=== PATIENT | male | born 1985 | race Caucasian/White ===

== ENCOUNTER 2016-08-08 12:51 | Emergency (ER) | payer OTHER ==
--- NOTE | 2016-08-08 13:58 | ED NURSING NOTES ---
Clinical Report - Nurses [facility] [address] [place] [address] 08/08/2016 12:51 Patient: MICHAELA SHARMA TRIAGE Triage time 12:59 Aug 08 2016. Acuity: LEVEL 4. Chief Complaint: MOUTH SORE and LEFT LOWER TOOTHACHE. ANASTASIA COMA SCORE: Anastasia Coma Scale: 15- eyes open spontaneously (4); best verbal response- oriented x 4 (5); best motor response- obeys commands (6). --13:03 Joaquin Altman R.N. 12:59 08/08/16. BP: 130/86. HR: 99. RR: 18. O2 saturation: 99%. Temp: 97.8 F. Pain level now 9/10. --13:03 Joaquin Altman R.N. Weight: 90.7 kg stated. Height/Length: 71 inches Per Patient. BMI: 27.9. --13:00 Joaquin Altman R.N. Medications None. --13:00 Joaquin Altman R.N. Allergies No Known Drug Allergy. --13:01 Joaquin Altman R.N. History Arrived by private vehicle. Historian: patient. Accompanied by family. Primary physician (Tonny). Onset. (three days ago). ( Patient states has an appointment the 23 of august for dentist but the pain is so bad he needs to be seen today for relief.). He has a dental appointment scheduled. He has had ear pain. No fever, hoarseness, mouth sores, sinus pain or enlarged lymph nodes. He has had a toothache. No swollen jaw. 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 PAST MEDICAL HX: Dental caries. No history of strep throat, abscess or mononucleosis. Immunizations: up-to-date. SOCIAL HX: Current every day light tobacco smoker (cigarette)- less than 1/2 a pack per day. No alcohol use or drug use. No infectious disease exposure. SELF HARM ASSESSMENT: A self harm assessment was performed. The patient answered "no" to the question "Have you recently felt down, depressed, or hopeless?" and "Do you have thoughts of harming or killing yourself?". FALL RISK ASSESSMENT: Fall risk assessment completed. No fall risk identified. NUTRITIONAL RISK ASSESSMENT: The nutritional risk assessment revealed no deficiencies. FUNCTIONAL ASSESSMENT: Functional assessment: no impairments noted. LEARNING NEEDS ASSESSMENT: The learning needs assessment revealed no barriers. ABUSE ASSESSMENT: Abuse assessment: (yes) The patient was asked "Do you feel safe in your home?". SKIN INTEGRITY ASSESSMENT: Skin integrity risk assessment completed. No skin integrity risk identified. --13:03 Jaoquin Altman R.N. PROBLEMS: Constipation. UTI - Urinary Tract Infection. Abdominal Pain. --13: Joaquin Altman R.N. ADDITIONAL SURGERIES: no known surgeries. Interventions ID band on patient. --13:03 Joaquin Altman R.N. PHYSICAL ASSESSMENT Ambulatory to room. GENERAL / NEURO / PSYCH: Alert. Oriented X 4. Appears in no acute distress. HEENT: Pupils equal, round and reactive to light. Pharynx within normal limits. Voice within normal limits. Dental decay. Mucous membranes are pink. RESPIRATORY: Respirations not labored. CVS: Capillary refill less than 2 seconds. SKIN: Skin is warm and dry. Normal skin turgor. --13:04 Joaquin Altman R.N. NURSING PROGRESS NOTES Head of bed elevated (45). Reassurance given. Call light placed in reach. Side rails up x 1. Bed placed in lowest position. Brakes of bed on. --13:04 Joaquin Altman R.N. 13:33 08/08/2016 Toradol (Ketorolac Tromethamine) IM 60 mg given. Given in the right gluteus melissa and left gluteus melissa (split dose). Allergies verified and confirmed 5 rights. --13:33 Joaquin Altman R.N. DISPOSITION / DISCHARGE Departure time: 14:05 Aug 08 2016. Condition at departure: improved. No learning barriers present. Discharge instructions provided and reviewed with the patient. Reviewed warnings. Reviewed medication(s). Treatments reviewed. Reviewed referrals. Patient verbalized understanding. Written instructions provided in [place]. The patient was discharged home and accompanied by family. He left the Emergency Department ambulatory and via private vehicle. Patient driving. --14:25 Joaquin Altman R.N. 14:23 08/08/16. BP: 141/83. HR: 101. RR: 18. O2 saturation: 96%. Temp: 97.8 F. Pain level now 0/10. --14:25 Joaquin Altman R.N. Locked/Released at 08/09/2016 18:36 by Joaquin Altman R.N.
--- NOTE | 2016-08-08 13:58 | ED ORDER SUMMARY ---
..... Patient: MICHAELA SHARMA OrderSheet Located Within [facility] VisitID: [id number] [address] [place] [address] 30y, M Registration Date/Time: 08/08/2016 ORDER SHEET Weight: 90.7 kg (stated) Allergies: No Known Drug Allergy GENERAL ORDERS: MEDICATION ORDERS: Toradol IM 60 mg (NOW) (13:24 08/08/2016 Yahir Chamorro) (13:33 Anali Morgan) IV FLUIDS: ORDER SHEET NOTES: [Electronically signed by Zurdo Tracey Dr. (14:01 08/08/2016)] [Electronically signed by Joaquin Altman R.N. (18:36 08/09/2016)] [Electronically locked/signed by Joaquin Altman R.N. (18:36 08/09/2016)]
--- NOTE | 2016-08-08 13:58 | ED ORDER SUMMARY ---
..... Patient: MICHAELA SHARMA OrderSheet [facility] VisitID: [id number] [address] [place] [address] 30y, M Registration Date/Time: 08/08/2016 ORDER SHEET Weight: 90.7 kg (stated) Allergies: No Known Drug Allergy GENERAL ORDERS: MEDICATION ORDERS: Toradol IM 60 mg (NOW) (13:24 08/08/2016 Yahir Chamorro) (13:33 Anali Morgan) IV FLUIDS: ORDER SHEET NOTES: [Electronically signed by Zurdo Tracey Dr. (14:01 08/08/2016)] [Electronically signed by Joaquin Altman R.N. (18:36 08/09/2016)] [Electronically locked/signed by Joaquin Altman R.N. (18:36 08/09/2016)]
--- NOTE | 2016-08-08 13:58 | ED CLINICAL REPORT ---
Clinical Report - Physicians/Mid Levels [facility] [address] [place] [address] 08/08/2016 12:51 Patient: MICHAELA SHARMA Time Seen: 12:55; initial patient contact. Arrived- By private vehicle. Historian- patient. HISTORY OF PRESENT ILLNESS Chief Complaint: DENTAL PAIN. This started yesterday and is still present. It was gradual in onset and has been constant. Pain described as moderate. No sore throat, mouth sores, nasal discharge or congestion or swollen jaw. No jaw pain. He has had toothache, swelling of the face, facial pain and ear pain. Similar symptoms previously: None. Recent medical care: Not recently seen/assessed. REVIEW OF SYSTEMS No fever, nausea, headache, enlarged lymph nodes or vomiting. All systems otherwise negative, except as recorded above. PAST HISTORY Constipation. UTI - Urinary Tract Infection. Abdominal Pain. Additional Surgeries: no known surgeries. Medications: None. Allergies: No Known Drug Allergy. SOCIAL HISTORY Current every day smoker. No alcohol use or drug use. ADDITIONAL NOTES The nursing notes have been reviewed with agreement regarding the chief complaint, PMH and patient medications and allergies. PHYSICAL EXAM Vital Signs: 08/08/2016 12:59 BP: 130/86. HR: 99. RR: 18. O2 saturation: 99%. Temp: 97.8 F. Have been reviewed as normal. Appearance: Alert. No acute distress. Head: Normal external inspection. ENT: Ears normal. Moderate dental decay (upper left first molar). Moderate dental tenderness of a single tooth (upper left first molar). Mild localized gingival erythema. No gingival bleeding or exudate. Pharynx normal. No trismus present. Neck: No adenopathy. CVS: Normal heart rate and rhythm. Heart sounds normal. Respiratory: No respiratory distress. Breath sounds normal. Skin: Normal skin color. No rash. Neuro: Oriented X 3. PROGRESS AND PROCEDURES Course of Care: Toradol 60 mg IM given. Physical exam findings are improved. Symptoms much better. Disposition: Discharged home in good and improved condition. Condition: good. INSTRUCTIONS Prescription Medications: Hydrocodone/APAP 5mg / 325mg: take 1 orally every 6 hours as needed for pain. Dispense fifteen (15). No refill. Amoxicillin 500 mg capsules: take 1 orally every 12 hours for 7 days. No refills. Follow-up: Follow up with your doctor as scheduled. Screening today revealed the patient's blood pressure to be in the pre-hypertensive range. The patient should follow up with a primary care provider for blood pressure management. Follow-up with: [facility], , , , , , Follow up if not better. (Electronically signed by Zurdo Tracey Dr. 08/08/2016 14:01)
--- NOTE | 2016-08-08 13:58 | ED CLINICAL REPORT ---
Clinical Report - Physicians/Mid Levels [facility] [address] [place] [address] 08/08/2016 12:51 Patient: MICHAELA SHARMA Time Seen: 12:55; initial patient contact. Arrived- By private vehicle. Historian- patient. HISTORY OF PRESENT ILLNESS Chief Complaint: DENTAL PAIN. This started yesterday and is still present. It was gradual in onset and has been constant. Pain described as moderate. No sore throat, mouth sores, nasal discharge or congestion or swollen jaw. No jaw pain. He has had toothache, swelling of the face, facial pain and ear pain. Similar symptoms previously: None. Recent medical care: Not recently seen/assessed. REVIEW OF SYSTEMS No fever, nausea, headache, enlarged lymph nodes or vomiting. All systems otherwise negative, except as recorded above. PAST HISTORY Constipation. UTI - Urinary Tract Infection. Abdominal Pain. Additional Surgeries: no known surgeries. Medications: None. Allergies: No Known Drug Allergy. SOCIAL HISTORY Current every day smoker. No alcohol use or drug use. ADDITIONAL NOTES The nursing notes have been reviewed with agreement regarding the chief complaint, PMH and patient medications and allergies. PHYSICAL EXAM Vital Signs: 08/08/2016 12:59 BP: 130/86. HR: 99. RR: 18. O2 saturation: 99%. Temp: 97.8 F. Have been reviewed as normal. Appearance: Alert. No acute distress. Head: Normal external inspection. ENT: Ears normal. Moderate dental decay (upper left first molar). Moderate dental tenderness of a single tooth (upper left first molar). Mild localized gingival erythema. No gingival bleeding or exudate. Pharynx normal. No trismus present. Neck: No adenopathy. CVS: Normal heart rate and rhythm. Heart sounds normal. Respiratory: No respiratory distress. Breath sounds normal. Skin: Normal skin color. No rash. Neuro: Oriented X 3. PROGRESS AND PROCEDURES Course of Care: Toradol 60 mg IM given. Physical exam findings are improved. Symptoms much better. Disposition: Discharged home in good and improved condition. Condition: good. INSTRUCTIONS Prescription Medications: Hydrocodone/APAP 5mg / 325mg: take 1 orally every 6 hours as needed for pain. Dispense fifteen (15). No refill. Amoxicillin 500 mg capsules: take 1 orally every 12 hours for 7 days. No refills. Follow-up: Follow up with your doctor as scheduled. Screening today revealed the patient's blood pressure to be in the pre-hypertensive range. The patient should follow up with a primary care provider for blood pressure management. Follow-up with: [facility], , , , , , Follow up if not better. (Electronically signed by Zurdo Tracey Dr. 08/08/2016 14:01)
--- NOTE | 2016-08-08 13:58 | ED NURSING NOTES ---
Clinical Report - Nurses [facility] [address] [place] [address] 08/08/2016 12:51 Patient: MICHAELA SHARMA TRIAGE Triage time 12:59 Aug 08 2016. Acuity: LEVEL 4. Chief Complaint: MOUTH SORE and LEFT LOWER TOOTHACHE. ANASTASIA COMA SCORE: Anastasia Coma Scale: 15- eyes open spontaneously (4); best verbal response- oriented x 4 (5); best motor response- obeys commands (6). --13:03 Joaquin Altman R.N. 12:59 08/08/16. BP: 130/86. HR: 99. RR: 18. O2 saturation: 99%. Temp: 97.8 F. Pain level now 9/10. --13:03 Joaquin Altman R.N. Weight: 90.7 kg stated. Height/Length: 71 inches Per Patient. BMI: 27.9. --13:00 Joaquin Altman R.N. Medications None. --13:00 Joaquin Altman R.N. Allergies No Known Drug Allergy. --13:01 Joaquin Altman R.N. History Arrived by private vehicle. Historian: patient. Accompanied by family. Primary physician (Tonny). Onset. (three days ago). ( Patient states has an appointment the 23 of august for dentist but the pain is so bad he needs to be seen today for relief.). He has a dental appointment scheduled. He has had ear pain. No fever, hoarseness, mouth sores, sinus pain or enlarged lymph nodes. He has had a toothache. No swollen jaw. 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 PAST MEDICAL HX: Dental caries. No history of strep throat, abscess or mononucleosis. Immunizations: up-to-date. SOCIAL HX: Current every day light tobacco smoker (cigarette)- less than 1/2 a pack per day. No alcohol use or drug use. No infectious disease exposure. SELF HARM ASSESSMENT: A self harm assessment was performed. The patient answered "no" to the question "Have you recently felt down, depressed, or hopeless?" and "Do you have thoughts of harming or killing yourself?". FALL RISK ASSESSMENT: Fall risk assessment completed. No fall risk identified. NUTRITIONAL RISK ASSESSMENT: The nutritional risk assessment revealed no deficiencies. FUNCTIONAL ASSESSMENT: Functional assessment: no impairments noted. LEARNING NEEDS ASSESSMENT: The learning needs assessment revealed no barriers. ABUSE ASSESSMENT: Abuse assessment: (yes) The patient was asked "Do you feel safe in your home?". SKIN INTEGRITY ASSESSMENT: Skin integrity risk assessment completed. No skin integrity risk identified. --13:03 Joaquin Altman R.N. PROBLEMS: Constipation. UTI - Urinary Tract Infection. Abdominal Pain. --13: Joaquin Altman R.N. ADDITIONAL SURGERIES: no known surgeries. Interventions ID band on patient. --13:03 Joaquin Altman R.N. PHYSICAL ASSESSMENT Ambulatory to room. GENERAL / NEURO / PSYCH: Alert. Oriented X 4. Appears in no acute distress. HEENT: Pupils equal, round and reactive to light. Pharynx within normal limits. Voice within normal limits. Dental decay. Mucous membranes are pink. RESPIRATORY: Respirations not labored. CVS: Capillary refill less than 2 seconds. SKIN: Skin is warm and dry. Normal skin turgor. --13:04 Joaquin Altman R.N. NURSING PROGRESS NOTES Head of bed elevated (45). Reassurance given. Call light placed in reach. Side rails up x 1. Bed placed in lowest position. Brakes of bed on. --13:04 Joaquin Altman R.N. 13:33 08/08/2016 Toradol (Ketorolac Tromethamine) IM 60 mg given. Given in the right gluteus melissa and left gluteus melissa (split dose). Allergies verified and confirmed 5 rights. --13:33 Joaquin Altman R.N. DISPOSITION / DISCHARGE Departure time: 14:05 Aug 08 2016. Condition at departure: improved. No learning barriers present. Discharge instructions provided and reviewed with the patient. Reviewed warnings. Reviewed medication(s). Treatments reviewed. Reviewed referrals. Patient verbalized understanding. Written instructions provided in Korean. The patient was discharged home and accompanied by family. He left the Emergency Department ambulatory and via private vehicle. Patient driving. --14:25 Joaquin Altman R.N. 14:23 08/08/16. BP: 141/83. HR: 101. RR: 18. O2 saturation: 96%. Temp: 97.8 F. Pain level now 0/10. --14:25 Joaquin Altman R.N. Locked/Released at 08/09/2016 18:36 by Joaquin Altman R.N.
--- NOTE | 2016-08-09 18:37 | ED MED RECONCILIATION SUMMARY ---
Patient: MICHAELA SHARMA Medication Reconciliation Report [facility] VisitID: [id number] [address] [place] [address] 30y, M Registration Date/Time: 08/08/2016 Weight: 90.7 kg Height/Length: 71 in. BMI: 27.9 ALLERGIES: No Known Drug Allergy The patient's Home Medications are listed below: NONE. The source(s) of the original Home Medication information: Not obtained. The following Medications were given to the patient in the Emergency Department: Toradol [IM] IM 60 mg, administered: 08/08/2016 1:33:00 PM The following Medications were prescribed to the patient: Hydrocodone/APAP 5mg / 325mg: take 1 orally every 6 hours as needed for pain. Dispense fifteen (15). No refill. -- Zurdo Tracey Dr. Amoxicillin 500 mg capsules: take 1 orally every 12 hours for 7 days. No refills. -- Zurdo Tracey Dr.
--- NOTE | 2016-08-09 18:37 | ED DISCHARGE INSTRUCTIONS ---
Patient: MICHAELA SHARMA General Instructions [facility] VisitID: [id number] [address] [place] [address] 30y, M Registration Date/Time: 08/08/2016 INSTRUCTIONS Prescription Medications: Hydrocodone/APAP 5mg / 325mg: take 1 orally every 6 hours as needed for pain. Dispense fifteen (15). No refill. Amoxicillin 500 mg capsules: take 1 orally every 12 hours for 7 days. No refills. Follow-up: Follow up with your doctor as scheduled. Screening today revealed the patient's blood pressure to be in the pre-hypertensive range. The patient should follow up with a primary care provider for blood pressure management. Follow-up with: [facility], , , , , , Follow up if not better. ADDITIONAL INFORMATION Hydrocodone Bitartrate, Acetaminophen Oral tablet What is this medicine? ACETAMINOPHEN; HYDROCODONE (a set a KATHLEEN yaniv fen; nena droe KOE done) is a pain reliever. It is used to treat mild to moderate pain. How should I use this medicine? Take this medicine by mouth. Swallow it with a full glass of water. Follow the directions on the prescription label. If the medicine upsets your stomach, take the medicine with food or milk. Do not take more than you are told to take. Talk to your printing equipment mechanic apprentice regarding the use of this medicine in children. This medicine is not approved for use in children. What side effects may I notice from receiving this medicine? Side effects that you should report to your doctor or health cardiac care nurse as soon as possible: allergic reactions like skin rash, itching or hives, swelling of the face, lips, or tongue breathing problems confusion feeling faint or lightheaded, falls stomach pain yellowing of the eyes or skin Side effects that usually do not require medical attention (report to your doctor or health cardiac care nurse if they continue or are bothersome): nausea, vomiting stomach upset What may interact with this medicine? alcohol antihistamines isoniazid medicines for depression, anxiety, or psychotic disturbances medicines for sleep muscle relaxants naltrexone narcotic medicines (opiates) for pain phenobarbital ritonavir tramadol What if I miss a dose? If you miss a dose, take it as soon as you can. If it is almost time for your next dose, take only that dose. Do not take double or extra doses. Where should I keep my medicine? Keep out of the reach of children. This medicine can be abused. Keep your medicine in a safe place to protect it from theft. Do not share this medicine with anyone. Selling or giving away this medicine is dangerous and against the law. Store at room temperature between 15 and 30 degrees C (59 and 86 degrees F). Protect from light. Keep container tightly closed. Throw away any unused medicine after the expiration date. Discard unused medicine and used packaging carefully. Pets and children can be harmed if they find used or lost packages. What should I tell my health care provider before I take this medicine? They need to know if you have any of these conditions: brain tumor Crohn's disease, inflammatory bowel disease, or ulcerative colitis drink more than 3 alcohol-containing drinks per day drug abuse or addiction head injury heart or circulation problems kidney disease or problems going to the bathroom liver disease lung disease, asthma, or breathing problems an unusual or allergic reaction to acetaminophen, hydrocodone, other opioid analgesics, other medicines, foods, dyes, or preservatives or trying to get breast-feeding What should I watch for while using this medicine? Tell your doctor or health cardiac care nurse if your pain does not go away, if it gets worse, or if you have new or a different type of pain. You may develop tolerance to the medicine. Tolerance means that you will need a higher dose of the medicine for pain relief. Tolerance is normal and is expected if you take the medicine for a long time. Do not suddenly stop taking your medicine because you may develop a severe reaction. Your body becomes used to the medicine. This does NOT mean you are addicted. Addiction is a behavior related to getting and using a drug for a non-medical reason. If you have pain, you have a medical reason to take pain medicine. Your doctor will tell you how much medicine to take. If your doctor wants you to stop the medicine, the dose will be slowly lowered over time to avoid any side effects. You may get drowsy or dizzy when you first start taking the medicine or change doses. Do not drive, use machinery, or do anything that may be dangerous until you know how the medicine affects you. Stand or sit up slowly. There are different types of narcotic medicines (opiates) for pain. If you take more than one type at the same time, you may have more side effects. Give your health care provider a list of all medicines you use. Your doctor will tell you how much medicine to take. Do not take more medicine than directed. Call emergency for help if you have problems breathing. The medicine will cause constipation. Try to have a bowel movement at least every 2 to 3 days. If you do not have a bowel movement for 3 days, call your doctor or health cardiac care nurse. Too much acetaminophen can be very dangerous. Do not take Tylenol (acetaminophen) or medicines that contain acetaminophen with this medicine. Many non-prescription medicines contain acetaminophen. Always read the labels carefully. Amoxicillin Trihydrate Oral tablet What is this medicine? AMOXICILLIN (a mox i VERONICA in) is a penicillin antibiotic. It is used to treat certain kinds of bacterial infections. It will not work for colds, flu, or other viral infections. How should I use this medicine? Take this medicine by mouth with a glass of water. Follow the directions on your prescription label. You may take this medicine with food or on an empty stomach. Take your medicine at regular intervals. Do not take your medicine more often than directed. Take all of your medicine as directed even if you think your are better. Do not skip doses or stop your medicine early. Talk to your printing equipment mechanic apprentice regarding the use of this medicine in children. While this drug may be prescribed for selected conditions, precautions do apply. What side effects may I notice from receiving this medicine? Side effects that you should report to your doctor or health cardiac care nurse as soon as possible: allergic reactions like skin rash, itching or hives, swelling of the face, lips, or tongue breathing problems dark urine redness, blistering, peeling or loosening of the skin, including inside the mouth seizures severe or watery diarrhea trouble passing urine or change in the amount of urine unusual bleeding or bruising unusually weak or tired yellowing of the eyes or skin Side effects that usually do not require medical attention (report to your doctor or health cardiac care nurse if they continue or are bothersome): dizziness headache stomach upset trouble sleeping What may interact with this medicine? amiloride control pills chloramphenicol macrolides probenecid sulfonamides tetracyclines What if I miss a dose? If you miss a dose, take it as soon as you can. If it is almost time for your next dose, take only that dose. Do not take double or extra doses. Where should I keep my medicine? Keep out of the reach of children. Store between 68 and 77 degrees F (20 and 25 degrees C). Keep bottle closed tightly. Throw away any unused medicine after the expiration date. What should I tell my health care provider before I take this medicine? They need to know if you have any of these conditions: asthma kidney disease an unusual or allergic reaction to amoxicillin, other penicillins, cephalosporin antibiotics, other medicines, foods, dyes, or preservatives or trying to get breast-feeding What should I watch for while using this medicine? Tell your doctor or health cardiac care nurse if your symptoms do not improve in 2 or 3 days. Take all of the doses of your medicine as directed. Do not skip doses or stop your medicine early. If you are diabetic, you may get a false positive result for sugar in your urine with certain brands of urine tests. Check with your doctor. Do not treat diarrhea with [id number] products. Contact your doctor if you have diarrhea that lasts more than 2 days or if the diarrhea is severe and watery. You have been given the following additional information: Hydrocodone Bitartrate, Acetaminophen Oral tablet Amoxicillin Trihydrate Oral tablet (Electronically signed by Zurdo Tracey Dr. 08/08/2016 14:01)
--- NOTE | 2016-08-09 18:37 | ED MED RECONCILIATION SUMMARY ---
Patient: MICHAELA SHARMA Medication Reconciliation Report [facility] VisitID: [id number] [address] [place] [address] 30y, M Registration Date/Time: 08/08/2016 Weight: 90.7 kg Height/Length: 71 in. BMI: 27.9 ALLERGIES: No Known Drug Allergy The patient's Home Medications are listed below: NONE. The source(s) of the original Home Medication information: Not obtained. The following Medications were given to the patient in the Emergency Department: Toradol [IM] IM 60 mg, administered: 08/08/2016 1:33:00 PM The following Medications were prescribed to the patient: Hydrocodone/APAP 5mg / 325mg: take 1 orally every 6 hours as needed for pain. Dispense fifteen (15). No refill. -- Zurdo Tracey Dr. Amoxicillin 500 mg capsules: take 1 orally every 12 hours for 7 days. No refills. -- Zurdo Tracey Dr.
--- NOTE | 2016-08-09 18:37 | ED DISCHARGE INSTRUCTIONS ---
Patient: MICHAELA SHARMA General Instructions [facility] VisitID: [id number] [address] [place] [address] 30y, M Registration Date/Time: 08/08/2016 INSTRUCTIONS Prescription Medications: Hydrocodone/APAP 5mg / 325mg: take 1 orally every 6 hours as needed for pain. Dispense fifteen (15). No refill. Amoxicillin 500 mg capsules: take 1 orally every 12 hours for 7 days. No refills. Follow-up: Follow up with your doctor as scheduled. Screening today revealed the patient's blood pressure to be in the pre-hypertensive range. The patient should follow up with a primary care provider for blood pressure management. Follow-up with: [facility], , , , , , Follow up if not better. ADDITIONAL INFORMATION Hydrocodone Bitartrate, Acetaminophen Oral tablet What is this medicine? ACETAMINOPHEN; HYDROCODONE (a set a KATHLEEN yaniv fen; nena droe KOE done) is a pain reliever. It is used to treat mild to moderate pain. How should I use this medicine? Take this medicine by mouth. Swallow it with a full glass of water. Follow the directions on the prescription label. If the medicine upsets your stomach, take the medicine with food or milk. Do not take more than you are told to take. Talk to your uppers edge burnisher regarding the use of this medicine in children. This medicine is not approved for use in children. What side effects may I notice from receiving this medicine? Side effects that you should report to your doctor or health respiratory care technician as soon as possible: allergic reactions like skin rash, itching or hives, swelling of the face, lips, or tongue breathing problems confusion feeling faint or lightheaded, falls stomach pain yellowing of the eyes or skin Side effects that usually do not require medical attention (report to your doctor or health respiratory care technician if they continue or are bothersome): nausea, vomiting stomach upset What may interact with this medicine? alcohol antihistamines isoniazid medicines for depression, anxiety, or psychotic disturbances medicines for sleep muscle relaxants naltrexone narcotic medicines (opiates) for pain phenobarbital ritonavir tramadol What if I miss a dose? If you miss a dose, take it as soon as you can. If it is almost time for your next dose, take only that dose. Do not take double or extra doses. Where should I keep my medicine? Keep out of the reach of children. This medicine can be abused. Keep your medicine in a safe place to protect it from theft. Do not share this medicine with anyone. Selling or giving away this medicine is dangerous and against the law. Store at room temperature between 15 and 30 degrees C (59 and 86 degrees F). Protect from light. Keep container tightly closed. Throw away any unused medicine after the expiration date. Discard unused medicine and used packaging carefully. Pets and children can be harmed if they find used or lost packages. What should I tell my health care provider before I take this medicine? They need to know if you have any of these conditions: brain tumor Crohn's disease, inflammatory bowel disease, or ulcerative colitis drink more than 3 alcohol-containing drinks per day drug abuse or addiction head injury heart or circulation problems kidney disease or problems going to the bathroom liver disease lung disease, asthma, or breathing problems an unusual or allergic reaction to acetaminophen, hydrocodone, other opioid analgesics, other medicines, foods, dyes, or preservatives or trying to get breast-feeding What should I watch for while using this medicine? Tell your doctor or health respiratory care technician if your pain does not go away, if it gets worse, or if you have new or a different type of pain. You may develop tolerance to the medicine. Tolerance means that you will need a higher dose of the medicine for pain relief. Tolerance is normal and is expected if you take the medicine for a long time. Do not suddenly stop taking your medicine because you may develop a severe reaction. Your body becomes used to the medicine. This does NOT mean you are addicted. Addiction is a behavior related to getting and using a drug for a non-medical reason. If you have pain, you have a medical reason to take pain medicine. Your doctor will tell you how much medicine to take. If your doctor wants you to stop the medicine, the dose will be slowly lowered over time to avoid any side effects. You may get drowsy or dizzy when you first start taking the medicine or change doses. Do not drive, use machinery, or do anything that may be dangerous until you know how the medicine affects you. Stand or sit up slowly. There are different types of narcotic medicines (opiates) for pain. If you take more than one type at the same time, you may have more side effects. Give your health care provider a list of all medicines you use. Your doctor will tell you how much medicine to take. Do not take more medicine than directed. Call emergency for help if you have problems breathing. The medicine will cause constipation. Try to have a bowel movement at least every 2 to 3 days. If you do not have a bowel movement for 3 days, call your doctor or health respiratory care technician. Too much acetaminophen can be very dangerous. Do not take Tylenol (acetaminophen) or medicines that contain acetaminophen with this medicine. Many non-prescription medicines contain acetaminophen. Always read the labels carefully. Amoxicillin Trihydrate Oral tablet What is this medicine? AMOXICILLIN (a mox i VERONICA in) is a penicillin antibiotic. It is used to treat certain kinds of bacterial infections. It will not work for colds, flu, or other viral infections. How should I use this medicine? Take this medicine by mouth with a glass of water. Follow the directions on your prescription label. You may take this medicine with food or on an empty stomach. Take your medicine at regular intervals. Do not take your medicine more often than directed. Take all of your medicine as directed even if you think your are better. Do not skip doses or stop your medicine early. Talk to your uppers edge burnisher regarding the use of this medicine in children. While this drug may be prescribed for selected conditions, precautions do apply. What side effects may I notice from receiving this medicine? Side effects that you should report to your doctor or health respiratory care technician as soon as possible: allergic reactions like skin rash, itching or hives, swelling of the face, lips, or tongue breathing problems dark urine redness, blistering, peeling or loosening of the skin, including inside the mouth seizures severe or watery diarrhea trouble passing urine or change in the amount of urine unusual bleeding or bruising unusually weak or tired yellowing of the eyes or skin Side effects that usually do not require medical attention (report to your doctor or health respiratory care technician if they continue or are bothersome): dizziness headache stomach upset trouble sleeping What may interact with this medicine? amiloride control pills chloramphenicol macrolides probenecid sulfonamides tetracyclines What if I miss a dose? If you miss a dose, take it as soon as you can. If it is almost time for your next dose, take only that dose. Do not take double or extra doses. Where should I keep my medicine? Keep out of the reach of children. Store between 68 and 77 degrees F (20 and 25 degrees C). Keep bottle closed tightly. Throw away any unused medicine after the expiration date. What should I tell my health care provider before I take this medicine? They need to know if you have any of these conditions: asthma kidney disease an unusual or allergic reaction to amoxicillin, other penicillins, cephalosporin antibiotics, other medicines, foods, dyes, or preservatives or trying to get breast-feeding What should I watch for while using this medicine? Tell your doctor or health respiratory care technician if your symptoms do not improve in 2 or 3 days. Take all of the doses of your medicine as directed. Do not skip doses or stop your medicine early. If you are diabetic, you may get a false positive result for sugar in your urine with certain brands of urine tests. Check with your doctor. Do not treat diarrhea with [id number] products. Contact your doctor if you have diarrhea that lasts more than 2 days or if the diarrhea is severe and watery. You have been given the following additional information: Hydrocodone Bitartrate, Acetaminophen Oral tablet Amoxicillin Trihydrate Oral tablet (Electronically signed by Zurdo Tracey Dr. 08/08/2016 14:01)
--- NOTE | 2016-08-09 18:37 | ED MAR SUMMARY ---
..... Medication Administration Record [facility] [address] [place] [address] Patient: MICHAELA SHARMA Visit ID: [id number] 30y, M Weight: 90.7 kg Height/Length: 71 in BMI: 27.9 ALLERGIES: No Known Drug Allergy Given 13:33 08/08/2016 Joaquin Altman R.N. Medication Administered: TORADOL [IM] (KETOROLAC TROMETHAMINE), Dose: 60 mg IM. Medication Ordered: Toradol IM 60 mg (NOW).
--- NOTE | 2016-08-09 18:37 | ED MAR SUMMARY ---
..... Medication Administration Record [facility] [address] [place] [address] Patient: MICHAELA SHARMA Visit ID: [id number] 30y, M Weight: 90.7 kg Height/Length: 71 in BMI: 27.9 ALLERGIES: No Known Drug Allergy Given 13:33 08/08/2016 Joaquin Altman R.N. Medication Administered: TORADOL [IM] (KETOROLAC TROMETHAMINE), Dose: 60 mg IM. Medication Ordered: Toradol IM 60 mg (NOW).
== END 2016-08-08 14:20 | disposition home or self-care (01) ==
LOC: ED SRH 12:51
DX: K02.9 Dental caries, unspecified (principal); F17.210 Nicotine dependence, cigarettes, uncomplicated

== ENCOUNTER 2016-08-10 17:14 | Emergency (ER) | payer OTHER ==
--- NOTE | 2016-08-10 18:53 | ED CLINICAL REPORT ---
Clinical Report - Physicians/Mid Levels [facility] [address] [place] [address] 08/10/2016 17:15 Patient: MICHAELA SHARMA Time Seen: 18:25; initial patient contact, initial documentation, patient care assumed. Arrived- By private vehicle. Historian- patient. HISTORY OF PRESENT ILLNESS Chief Complaint: DENTAL PAIN. This started today and is still present. Pain described as severe. No sore throat, mouth sores, nasal discharge or congestion or ear pain. He has had severe left jaw pain. He has had severe left-sided facial pain. Similar symptoms previously: None. Recent medical care: The patient was seen recently in the office. ( had wisdom teeth removed today, dentist gave no rx, and the pain is getting worse). REVIEW OF SYSTEMS No fever or difficulty breathing. All systems otherwise negative, except as recorded above. PAST HISTORY See nurses notes. PROBLEMS: Dental Caries. Constipation. UTI - Urinary Tract Infection. Abdominal Pain. --17:38 Edna Goldman R.N. ADDITIONAL SURGERIES: Dental Surgery. --17:38 Edna Goldman R.N. SOCIAL HISTORY Light tobacco smoker. No alcohol use or drug use. No recent travel. Is a local resident. FAMILY HISTORY Negative. ADDITIONAL NOTES The nursing notes have been reviewed with agreement regarding the chief complaint, HPI, ROS, PMH and patient medications and allergies. PHYSICAL EXAM Vital Signs: 08/10/2016 17:34 BP: 133/93. HR: 117. RR: 18. O2 saturation: 98%. Temp: 99.3 F. Pain level now: 10/10. Have been reviewed as abnormal and appear to be correct. Blood pressure normal. Tachycardic. Respiratory rate normal. Temperature normal. Oxygen saturation normal. Appearance: Alert. No acute distress. Head: Normal external inspection. Eyes: Pupils equal, round and reactive to light. Conjunctivae and eyelids normal. ENT: Ears normal. Nose normal. Gums abnormal. Pharynx normal. Lips normal. No trismus present. Uvula midline. (large hole on bottom L molar where tooth was extracted). Neck: Normal inspection. Trachea midline. No adenopathy. Thyroid normal. Neck supple. Respiratory: No respiratory distress. Skin: Normal skin color. No rash. Normal skin turgor. Extremities: Extremities exhibit normal ROM. Extremities nontender. Neuro: Oriented X 3. No motor deficit. No sensory deficit. PROGRESS AND PROCEDURES Patient counseled in person regarding the patient's stable condition and diagnosis. 18:53. Differential Diagnosis: Other possible considerations: dry socket, dental abscess, caries, pain, post op infection/complication. Above considerations are based on history and physical exam. Differential diagnosis was discussed with patient. Disposition: Discharged home in good and unchanged condition (18:53). Condition: good and stable. CLINICAL IMPRESSION Severe dental pain. INSTRUCTIONS Warnings: GENERAL WARNINGS: Return or contact your physician immediately if your condition worsens or changes unexpectedly, if not improving as expected, or if other problems arise. Specifically return if problem worsens. Prescription Medications: Zofran 4 mg: Take 1 orally every six hours as needed for nausea/vomiting. Dispense ten (10). No refills. Substitution is permissible. Lytle 5 mg / 325 mg tablets: take 1 to 2 orally every 6 hours as needed for pain. Dispense fifteen (15). No refills. Substitution is permissible. Follow-up: Follow up with a dentist in about three days even if well. Call for an appointment. Summary of care provided to patient. Understanding of the discharge instructions verbalized by patient. (Electronically signed by Corina Caceres A.R.N.P. 08/10/2016 19:42)
--- NOTE | 2016-08-10 18:53 | ED NURSING NOTES ---
Clinical Report - Nurses [facility] [place] [address] 08/10/2016 17:15 Patient: MICHAELA SHARMA TRIAGE Triage time 17:34. Acuity: LEVEL 4. Chief Complaint: JAW PAIN. Alert. No acute distress. ANASTASIA COMA SCORE: Anastasia Coma Scale: 15- eyes open spontaneously (4); best verbal response- oriented x 4 (5); best motor response- obeys commands (6). --17:41 Edna Goldman R.N. 17:34 08/10/16. BP: 133/93. HR: 117. RR: 18. O2 saturation: 98% on room air. Temp: 99.3 F (oral). Pain level now: 03/30. --17:41 Edna Goldman R.N. Weight: 90.7 kg stated. Height/Length: 69 inches Per Patient. BMI: 29.5. --17:39 Edna Goldman R.N. Medications Acetaminophen Oral. Ibuprofen Oral. --17:35 Edna Goldman R.N. Medication/allergy information source: the patient. --17:41 Edna Goldman R.N. Allergies No Known Drug Allergy. --17:36 Edna Goldman R.N. History Arrived by private vehicle. Historian: patient. Unaccompanied. Primary physician (none). This started today. ( had wisdom tooth pulled today, tylenol nor ibuprofen are helping). SOCIAL HX: Light tobacco smoker- less than 1/2 a pack per day. No alcohol use or drug use. FALL RISK ASSESSMENT: Fall risk assessment completed. No fall risk identified. FUNCTIONAL ASSESSMENT: Functional assessment: no impairments noted. LEARNING NEEDS ASSESSMENT: The learning needs assessment revealed no barriers. --17:41 Edna Goldman R.N. PROBLEMS: Dental Caries. Constipation. UTI - Urinary Tract Infection. Abdominal Pain. --17:38 Edna Goldman R.N. ADDITIONAL SURGERIES: Dental Surgery. --17:38 Edna Goldman R.N. Assessment GENERAL / NEURO / PSYCH: Alert. Oriented X 4. Appears in no acute distress. Patient appears calm and cooperative. RESPIRATORY: Respirations not labored. SKIN: Skin is warm and dry. --17:41 Edna Goldman R.N. Interventions ID band on patient. To waiting room. --17:41 Edna Goldman R.N. PHYSICAL ASSESSMENT 18:16. Ambulatory to room. GENERAL / NEURO / PSYCH: Alert. Oriented X 4. Appears in pain. HEENT: Facial swelling present. Runny nose. Trouble handling secretions. Dental tenderness (left lower molar). Mucous membranes are pink. RESPIRATORY: Respirations not labored. CVS: Capillary refill less than 2 seconds. SKIN: Skin is warm and dry. Normal skin turgor. --18:16 Vanessa Aguilar R.N. NURSING PROGRESS NOTES 18:17. Head of bed elevated. Two patient identifiers checked. Call light placed in reach. Side rails up x 1. Bed placed in lowest position. Patient ready for evaluation- chart flagged. --18:17 Vanessa Aguilar R.N. DISPOSITION / DISCHARGE 19:10. Condition at departure: unchanged. No learning barriers present. Discharge instructions provided and reviewed with the patient. Reviewed medication(s) dosing information. Prescription(s) given to the patient (norco and Zofran). Patient verbalized understanding. Written instructions provided in [place]i. The patient was discharged home. He left the Emergency Department ambulatory and via private vehicle. Patient driving. --19:11 Vanessa Aguilar R.N. 19:09 08/10/16. BP: deferred. HR: deferred. RR: deferred. Temp: deferred. Pain level now deferred. --19:11 Vanessa Aguilar R.N. Locked/Released at 08/10/2016 19:11 by Vanessa Aguilar R.N.
--- NOTE | 2016-08-10 19:42 | ED MED RECONCILIATION SUMMARY ---
Patient: MICHAELA SHARMA Medication Reconciliation Report [facility] VisitID: [id number] [address] [place] [address] 30y, M Registration Date/Time: 08/10/2016 Weight: 90.7 kg Height/Length: 69 in. BMI: 29.5 ALLERGIES: No Known Drug Allergy The patient's Home Medications are listed below: THE FOLLOWING MEDICATIONS NEED TO BE RECONCILED: Acetaminophen Oral Ibuprofen Oral The source(s) of the original Home Medication information: patient The following Medications were given to the patient in the Emergency Department: None. The following Medications were prescribed to the patient: Zofran 4 mg: Take 1 orally every six hours as needed for nausea/vomiting. Dispense ten (10). No refills. Substitution is permissible. -- Corina Caceres, Mary.R.N.P. [place] 5 mg / 325 mg tablets: take 1 to 2 orally every 6 hours as needed for pain. Dispense fifteen (15). No refills. Substitution is permissible. -- Corina Caceres, A.R.N.P.
--- NOTE | 2016-08-10 19:42 | ED MAR SUMMARY ---
..... Medication Administration Record [facility] [address] [place] [place], [place] [id number] Patient: MICHAELA SHARMA Visit ID: [id number] 30y, M Weight: 90.7 kg Height/Length: 69 in BMI: 29.5 ALLERGIES: No Known Drug Allergy
--- NOTE | 2016-08-10 19:42 | ED DISCHARGE INSTRUCTIONS ---
Patient: MICHAELA SHARMA General Instructions [facility] VisitID: [id number] [place] [address] 30y, M Registration Date/Time: 08/10/2016 Severe dental pain. INSTRUCTIONS Warnings: GENERAL WARNINGS: Return or contact your physician immediately if your condition worsens or changes unexpectedly, if not improving as expected, or if other problems arise. Specifically return if problem worsens. Prescription Medications: Zofran 4 mg: Take 1 orally every six hours as needed for nausea/vomiting. Dispense ten (10). No refills. Substitution is permissible. [place] 5 mg / 325 mg tablets: take 1 to 2 orally every 6 hours as needed for pain. Dispense fifteen (15). No refills. Substitution is permissible. Follow-up: Follow up with a dentist in about three days even if well. Call for an appointment. Summary of care provided to patient. Understanding of the discharge instructions verbalized by patient. ADDITIONAL INFORMATION Dental Pain A crack or cavity in the tooth, which exposes the sensitive inner area of the tooth can cause tooth pain. An infection in the gum or the root of the tooth can cause pain and swelling. The pain is often made worse by drinking hot or cold fluids, or biting on hard foods. Pain may spread from the tooth to the ear or jaw on the same side. Home Care: Avoid hot and cold foods and liquids since your tooth may be sensitive to temperature changes. If your tooth is chipped or cracked, or if there is a large open cavity, apply OIL OF CLOVES (available [id number] in drug stores) directly to the tooth to reduce pain. Some pharmacies carry an agma-ilo-nmfseif "toothache kit." This contains a paste, which can be applied over the exposed tooth to decrease sensitivity. A cold pack on your jaw over the sore area may help reduce pain. You may use acetaminophen (Tylenol) or ibuprofen (Motrin, Advil) to control pain, unless another medicine was prescribed. [ NOTE: If you have chronic liver or kidney disease or ever had a stomach ulcer or GI bleeding, talk with your doctor before using these medicines.] If you have signs of an infection, an antibiotic will be given. Take it as directed. Follow-Up as directed with a dentist. Your pain may go away with the treatment given. However, only a dentist can fully evaluate and treat the cause and prevent the pain from coming back again. TOOTHACHE IS A SIGN OF DISEASE IN YOUR TOOTH AND SHOULD BE EXAMINED AND TREATED BY A DENTIST. Get Prompt Medical Attention if any of the following occur: Your face becomes swollen or red Pain worsens or spreads to the neck Fever over 100.4 F (38.0 C) Unusual drowsiness; headache or stiff neck; weakness or fainting Pus drains from the tooth Difficulty swallowing or breathing Ondansetron Oral disintegrating tablet What is this medicine? ONDANSETRON (on ROXIE se dayna) is used to treat nausea and vomiting caused by chemotherapy. It is also used to prevent or treat nausea and vomiting after surgery. How should I use this medicine? These tablets are made to dissolve in the mouth. Do not try to push the tablet through the foil backing. With dry hands, peel away the foil backing and gently remove the tablet. Place the tablet in the mouth and allow it to dissolve, then swallow. While you may take these tablets with water, it is not necessary to do so. Talk to your metal cut off saw operator regarding the use of this medicine in children. Special care may be needed. What side effects may I notice from receiving this medicine? Side effects that you should report to your doctor or health caregivers non medical as soon as possible: allergic reactions like skin rash, itching or hives, swelling of the face, lips, or tongue breathing problems dizziness fast or irregular heartbeat feeling faint or lightheaded, falls fever and chills swelling of the hands and feet tightness in the chest Side effects that usually do not require medical attention (report to your doctor or health caregivers non medical if they continue or are bothersome): constipation or diarrhea headache What may interact with this medicine? Do not take this medicine with any of the following medications: -apomorphine -cisapride -dofetilide -dronedarone -pimozide -thioridazine -ziprasidone This medicine may also interact with the following medications: -carbamazepine -phenytoin -rifampicin -tramadol -other medicines that prolong the QT interval (cause an abnormal heart rhythm) What if I miss a dose? If you miss a dose, take it as soon as you can. If it is almost time for your next dose, take only that dose. Do not take double or extra doses. Where should I keep my medicine? Keep out of the reach of children. Store between 2 and 30 degrees C (36 and 86 degrees F). Throw away any unused medicine after the expiration date. What should I tell my health care provider before I take this medicine? They need to know if you have any of these conditions: heart disease history of irregular heartbeat liver disease low levels of magnesium or potassium in the blood an unusual or allergic reaction to ondansetron, granisetron, other medicines, foods, dyes, or preservatives or trying to get breast-feeding What should I watch for while using this medicine? Check with your doctor or health caregivers non medical as soon as you can if you have any sign of an allergic reaction. Hydrocodone Bitartrate, Acetaminophen Oral tablet What is this medicine? ACETAMINOPHEN; HYDROCODONE (a set a KATHLEEN yaniv fen; nena droe KOE done) is a pain reliever. It is used to treat mild to moderate pain. How should I use this medicine? Take this medicine by mouth. Swallow it with a full glass of water. Follow the directions on the prescription label. If the medicine upsets your stomach, take the medicine with food or milk. Do not take more than you are told to take. Talk to your metal cut off saw operator regarding the use of this medicine in children. This medicine is not approved for use in children. What side effects may I notice from receiving this medicine? Side effects that you should report to your doctor or health caregivers non medical as soon as possible: allergic reactions like skin rash, itching or hives, swelling of the face, lips, or tongue breathing problems confusion feeling faint or lightheaded, falls stomach pain yellowing of the eyes or skin Side effects that usually do not require medical attention (report to your doctor or health caregivers non medical if they continue or are bothersome): nausea, vomiting stomach upset What may interact with this medicine? alcohol antihistamines isoniazid medicines for depression, anxiety, or psychotic disturbances medicines for sleep muscle relaxants naltrexone narcotic medicines (opiates) for pain phenobarbital ritonavir tramadol What if I miss a dose? If you miss a dose, take it as soon as you can. If it is almost time for your next dose, take only that dose. Do not take double or extra doses. Where should I keep my medicine? Keep out of the reach of children. This medicine can be abused. Keep your medicine in a safe place to protect it from theft. Do not share this medicine with anyone. Selling or giving away this medicine is dangerous and against the law. Store at room temperature between 15 and 30 degrees C (59 and 86 degrees F). Protect from light. Keep container tightly closed. Throw away any unused medicine after the expiration date. Discard unused medicine and used packaging carefully. Pets and children can be harmed if they find used or lost packages. What should I tell my health care provider before I take this medicine? They need to know if you have any of these conditions: brain tumor Crohn's disease, inflammatory bowel disease, or ulcerative colitis drink more than 3 alcohol-containing drinks per day drug abuse or addiction head injury heart or circulation problems kidney disease or problems going to the bathroom liver disease lung disease, asthma, or breathing problems an unusual or allergic reaction to acetaminophen, hydrocodone, other opioid analgesics, other medicines, foods, dyes, or preservatives or trying to get breast-feeding What should I watch for while using this medicine? Tell your doctor or health caregivers non medical if your pain does not go away, if it gets worse, or if you have new or a different type of pain. You may develop tolerance to the medicine. Tolerance means that you will need a higher dose of the medicine for pain relief. Tolerance is normal and is expected if you take the medicine for a long time. Do not suddenly stop taking your medicine because you may develop a severe reaction. Your body becomes used to the medicine. This does NOT mean you are addicted. Addiction is a behavior related to getting and using a drug for a non-medical reason. If you have pain, you have a medical reason to take pain medicine. Your doctor will tell you how much medicine to take. If your doctor wants you to stop the medicine, the dose will be slowly lowered over time to avoid any side effects. You may get drowsy or dizzy when you first start taking the medicine or change doses. Do not drive, use machinery, or do anything that may be dangerous until you know how the medicine affects you. Stand or sit up slowly. There are different types of narcotic medicines (opiates) for pain. If you take more than one type at the same time, you may have more side effects. Give your health care provider a list of all medicines you use. Your doctor will tell you how much medicine to take. Do not take more medicine than directed. Call emergency for help if you have problems breathing. The medicine will cause constipation. Try to have a bowel movement at least every 2 to 3 days. If you do not have a bowel movement for 3 days, call your doctor or health caregivers non medical. Too much acetaminophen can be very dangerous. Do not take Tylenol (acetaminophen) or medicines that contain acetaminophen with this medicine. Many non-prescription medicines contain acetaminophen. Always read the labels carefully. You have been given the following additional information: Dental Pain Ondansetron Oral disintegrating tablet Hydrocodone Bitartrate, Acetaminophen Oral tablet (Electronically signed by Corina Caceres A.R.N.P. 08/10/2016 19:42)
--- NOTE | 2016-08-10 19:42 | ED MED RECONCILIATION SUMMARY ---
Patient: MICHAELA SHARMA Medication Reconciliation Report [facility] VisitID: [id number] [address] [place] [address] 30y, M Registration Date/Time: 08/10/2016 Weight: 90.7 kg Height/Length: 69 in. BMI: 29.5 ALLERGIES: No Known Drug Allergy The patient's Home Medications are listed below: THE FOLLOWING MEDICATIONS NEED TO BE RECONCILED: Acetaminophen Oral Ibuprofen Oral The source(s) of the original Home Medication information: patient The following Medications were given to the patient in the Emergency Department: None. The following Medications were prescribed to the patient: Zofran 4 mg: Take 1 orally every six hours as needed for nausea/vomiting. Dispense ten (10). No refills. Substitution is permissible. -- Corina Caceres, Mary.R.N.P. [place] 5 mg / 325 mg tablets: take 1 to 2 orally every 6 hours as needed for pain. Dispense fifteen (15). No refills. Substitution is permissible. -- Corina Caceres, A.R.N.P.
--- NOTE | 2016-08-10 19:42 | ED MAR SUMMARY ---
..... Medication Administration Record [facility] [address] [place], [place] [id number] Patient: MICHAELA SHARMA Visit ID: [id number] 30y, M Weight: 90.7 kg Height/Length: 69 in BMI: 29.5 ALLERGIES: No Known Drug Allergy
--- NOTE | 2016-08-10 19:42 | ED DISCHARGE INSTRUCTIONS ---
Patient: MICHAELA SHARMA General Instructions [facility] VisitID: [id number] [place] [address] 30y, M Registration Date/Time: 08/10/2016 Severe dental pain. INSTRUCTIONS Warnings: GENERAL WARNINGS: Return or contact your physician immediately if your condition worsens or changes unexpectedly, if not improving as expected, or if other problems arise. Specifically return if problem worsens. Prescription Medications: Zofran 4 mg: Take 1 orally every six hours as needed for nausea/vomiting. Dispense ten (10). No refills. Substitution is permissible. [place] 5 mg / 325 mg tablets: take 1 to 2 orally every 6 hours as needed for pain. Dispense fifteen (15). No refills. Substitution is permissible. Follow-up: Follow up with a dentist in about three days even if well. Call for an appointment. Summary of care provided to patient. Understanding of the discharge instructions verbalized by patient. ADDITIONAL INFORMATION Dental Pain A crack or cavity in the tooth, which exposes the sensitive inner area of the tooth can cause tooth pain. An infection in the gum or the root of the tooth can cause pain and swelling. The pain is often made worse by drinking hot or cold fluids, or biting on hard foods. Pain may spread from the tooth to the ear or jaw on the same side. Home Care: Avoid hot and cold foods and liquids since your tooth may be sensitive to temperature changes. If your tooth is chipped or cracked, or if there is a large open cavity, apply OIL OF CLOVES (available qoat-jyh-afbapte in drug stores) directly to the tooth to reduce pain. Some pharmacies carry an albd-urz-eiqaiam "toothache kit." This contains a paste, which can be applied over the exposed tooth to decrease sensitivity. A cold pack on your jaw over the sore area may help reduce pain. You may use acetaminophen (Tylenol) or ibuprofen (Motrin, Advil) to control pain, unless another medicine was prescribed. [ NOTE: If you have chronic liver or kidney disease or ever had a stomach ulcer or GI bleeding, talk with your doctor before using these medicines.] If you have signs of an infection, an antibiotic will be given. Take it as directed. Follow-Up as directed with a dentist. Your pain may go away with the treatment given. However, only a dentist can fully evaluate and treat the cause and prevent the pain from coming back again. TOOTHACHE IS A SIGN OF DISEASE IN YOUR TOOTH AND SHOULD BE EXAMINED AND TREATED BY A DENTIST. Get Prompt Medical Attention if any of the following occur: Your face becomes swollen or red Pain worsens or spreads to the neck Fever over 100.4 F (38.0 C) Unusual drowsiness; headache or stiff neck; weakness or fainting Pus drains from the tooth Difficulty swallowing or breathing Ondansetron Oral disintegrating tablet What is this medicine? ONDANSETRON (on ROXIE se dayna) is used to treat nausea and vomiting caused by chemotherapy. It is also used to prevent or treat nausea and vomiting after surgery. How should I use this medicine? These tablets are made to dissolve in the mouth. Do not try to push the tablet through the foil backing. With dry hands, peel away the foil backing and gently remove the tablet. Place the tablet in the mouth and allow it to dissolve, then swallow. While you may take these tablets with water, it is not necessary to do so. Talk to your government minister regarding the use of this medicine in children. Special care may be needed. What side effects may I notice from receiving this medicine? Side effects that you should report to your doctor or health care transition coordinator as soon as possible: allergic reactions like skin rash, itching or hives, swelling of the face, lips, or tongue breathing problems dizziness fast or irregular heartbeat feeling faint or lightheaded, falls fever and chills swelling of the hands and feet tightness in the chest Side effects that usually do not require medical attention (report to your doctor or health care transition coordinator if they continue or are bothersome): constipation or diarrhea headache What may interact with this medicine? Do not take this medicine with any of the following medications: -apomorphine -cisapride -dofetilide -dronedarone -pimozide -thioridazine -ziprasidone This medicine may also interact with the following medications: -carbamazepine -phenytoin -rifampicin -tramadol -other medicines that prolong the QT interval (cause an abnormal heart rhythm) What if I miss a dose? If you miss a dose, take it as soon as you can. If it is almost time for your next dose, take only that dose. Do not take double or extra doses. Where should I keep my medicine? Keep out of the reach of children. Store between 2 and 30 degrees C (36 and 86 degrees F). Throw away any unused medicine after the expiration date. What should I tell my health care provider before I take this medicine? They need to know if you have any of these conditions: heart disease history of irregular heartbeat liver disease low levels of magnesium or potassium in the blood an unusual or allergic reaction to ondansetron, granisetron, other medicines, foods, dyes, or preservatives or trying to get breast-feeding What should I watch for while using this medicine? Check with your doctor or health care transition coordinator as soon as you can if you have any sign of an allergic reaction. Hydrocodone Bitartrate, Acetaminophen Oral tablet What is this medicine? ACETAMINOPHEN; HYDROCODONE (a set a KATHLEEN yaniv fen; nena droe KOE done) is a pain reliever. It is used to treat mild to moderate pain. How should I use this medicine? Take this medicine by mouth. Swallow it with a full glass of water. Follow the directions on the prescription label. If the medicine upsets your stomach, take the medicine with food or milk. Do not take more than you are told to take. Talk to your government minister regarding the use of this medicine in children. This medicine is not approved for use in children. What side effects may I notice from receiving this medicine? Side effects that you should report to your doctor or health care transition coordinator as soon as possible: allergic reactions like skin rash, itching or hives, swelling of the face, lips, or tongue breathing problems confusion feeling faint or lightheaded, falls stomach pain yellowing of the eyes or skin Side effects that usually do not require medical attention (report to your doctor or health care transition coordinator if they continue or are bothersome): nausea, vomiting stomach upset What may interact with this medicine? alcohol antihistamines isoniazid medicines for depression, anxiety, or psychotic disturbances medicines for sleep muscle relaxants naltrexone narcotic medicines (opiates) for pain phenobarbital ritonavir tramadol What if I miss a dose? If you miss a dose, take it as soon as you can. If it is almost time for your next dose, take only that dose. Do not take double or extra doses. Where should I keep my medicine? Keep out of the reach of children. This medicine can be abused. Keep your medicine in a safe place to protect it from theft. Do not share this medicine with anyone. Selling or giving away this medicine is dangerous and against the law. Store at room temperature between 15 and 30 degrees C (59 and 86 degrees F). Protect from light. Keep container tightly closed. Throw away any unused medicine after the expiration date. Discard unused medicine and used packaging carefully. Pets and children can be harmed if they find used or lost packages. What should I tell my health care provider before I take this medicine? They need to know if you have any of these conditions: brain tumor Crohn's disease, inflammatory bowel disease, or ulcerative colitis drink more than 3 alcohol-containing drinks per day drug abuse or addiction head injury heart or circulation problems kidney disease or problems going to the bathroom liver disease lung disease, asthma, or breathing problems an unusual or allergic reaction to acetaminophen, hydrocodone, other opioid analgesics, other medicines, foods, dyes, or preservatives or trying to get breast-feeding What should I watch for while using this medicine? Tell your doctor or health care transition coordinator if your pain does not go away, if it gets worse, or if you have new or a different type of pain. You may develop tolerance to the medicine. Tolerance means that you will need a higher dose of the medicine for pain relief. Tolerance is normal and is expected if you take the medicine for a long time. Do not suddenly stop taking your medicine because you may develop a severe reaction. Your body becomes used to the medicine. This does NOT mean you are addicted. Addiction is a behavior related to getting and using a drug for a non-medical reason. If you have pain, you have a medical reason to take pain medicine. Your doctor will tell you how much medicine to take. If your doctor wants you to stop the medicine, the dose will be slowly lowered over time to avoid any side effects. You may get drowsy or dizzy when you first start taking the medicine or change doses. Do not drive, use machinery, or do anything that may be dangerous until you know how the medicine affects you. Stand or sit up slowly. There are different types of narcotic medicines (opiates) for pain. If you take more than one type at the same time, you may have more side effects. Give your health care provider a list of all medicines you use. Your doctor will tell you how much medicine to take. Do not take more medicine than directed. Call emergency for help if you have problems breathing. The medicine will cause constipation. Try to have a bowel movement at least every 2 to 3 days. If you do not have a bowel movement for 3 days, call your doctor or health care transition coordinator. Too much acetaminophen can be very dangerous. Do not take Tylenol (acetaminophen) or medicines that contain acetaminophen with this medicine. Many non-prescription medicines contain acetaminophen. Always read the labels carefully. You have been given the following additional information: Dental Pain Ondansetron Oral disintegrating tablet Hydrocodone Bitartrate, Acetaminophen Oral tablet (Electronically signed by Corina Caceres A.R.N.P. 08/10/2016 19:42)
== END 2016-08-10 19:05 | disposition home or self-care (01) ==
LOC: ED SRH 17:14
DX: K08.89 Other specified disorders of teeth and supporting structures (principal); F17.200 Nicotine dependence, unspecified, uncomplicated

== ENCOUNTER 2016-08-27 15:51 | Emergency (ER) | payer OTHER ==
--- NOTE | 2016-08-27 16:47 | ED CLINICAL REPORT ---
Clinical Report - Physicians/Mid Levels [facility] [address] [place] [address] 08/27/2016 15:51 Patient: MICHAELA SHARMA Time Seen: 16:16. Arrived- By private vehicle. Historian- patient. HISTORY OF PRESENT ILLNESS Chief Complaint: DENTAL PAIN. This started about 10 days ago and is still present. It was gradual in onset and has been waxing/waning. No sore throat, mouth sores, nasal discharge or congestion or ear pain. No swollen jaw or face. He has had toothache. Similar symptoms previously: Several times. REVIEW OF SYSTEMS No fever, difficulty breathing or abdominal pain. PAST HISTORY PROBLEMS: Dental Pain. Dental Caries. Constipation. UTI - Urinary Tract Infection. Abdominal Pain ADDITIONAL SURGERIES: Dental Surgery. ADDITIONAL NOTES The nursing notes have been reviewed. PHYSICAL EXAM Vital Signs: 08/27/2016 16:53 BP: 127/53. HR: 105. RR: 15. O2 saturation: 100%. Temp: 98.1 F. Pain level now: 02/28. 08/27/2016 16:13 BP: 123/72. HR: 110. RR: 15. O2 saturation: 97%. Temp: 98.1 F. Pain level now: 02/28. Appearance: Alert. No acute distress. Eyes: Conjunctivae and eyelids normal. ENT: Extensive dental decay. Pharynx normal. No trismus. Neck: Normal inspection. Trachea midline. No adenopathy. Thyroid normal. Neck supple. PROGRESS AND PROCEDURES Course of Care: Pt declines a dental block. Disposition: Discharged. Condition: stable. CLINICAL IMPRESSION Moderate dental pain. INSTRUCTIONS (I AM HAPPY TO DO A DENTAL BLOCK TO RELIEVE YOUR PAIN IF YOU CHANGE YOUR MIND.). Prescription Medications: Zofran 4 mg: Take 1 orally every six hours as needed for nausea/vomiting. Dispense ten (10). No refills. Substitution is permissible. Amoxicillin 500 mg tablets: Take 1 orally every 8 hours for 10 days. Dispense thirty (30). No refills. Follow-up: Follow up with a dentist as scheduled. Understanding of the discharge instructions verbalized by patient. (Electronically signed by Jeff Ortiz MD 08/29/2016 21:02)
--- NOTE | 2016-08-27 16:47 | ED NURSING NOTES ---
Clinical Report - Nurses [address] [place] [address] 08/27/2016 15:51 Patient: MICHAELA SHARMA TRIAGE Triage time 1613 PM. Acuity: LEVEL 5. Chief Complaint: (Dental pain). Alert. No acute distress. SEPSIS SCREEN: Sepsis Screen. Negative (no infection suspected/documented). --16:19 Astrid Garcia R.N. 16:13 08/27/16. BP: 123/72. HR: 110. RR: 15. O2 saturation: 97%. Temp: 98.1 F (oral). Pain level now: 02/28. --16:19 Astrid Garcia R.N. Weight: 90.7 kg stated. Height/Length: 70 inches Per Patient. BMI: 28.7. --16:14 Astrid Garcia R.N. Medications Acetaminophen Oral. Ibuprofen Oral. --16:15 Astrid Garcia R.N. Allergies No Known Drug Allergy. --16:15 Astrid Garcia R.N. Medication/allergy information source: the patient. --16:19 Astrid Garcia R.N. History Arrived by private vehicle. ( Pt states has an appointment for dentist next in [place], has been taking ibuprofen and tylenol for pain, unable to eat, denies fevers or chills. Pt states its a new tooth left upper). This is a new problem. (1 1/2 weeks). No fever, weakness, cough, difficulty breathing or skin rash. Denies muscle aches. 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 PAST MEDICAL HX: Immunizations: up-to-date. SOCIAL HX: Light tobacco smoker (cigarette). No alcohol use or drug use. No infectious disease exposure. ABUSE ASSESSMENT: No report of abuse. SELF HARM ASSESSMENT: A self harm assessment was performed. The patient answered "no" to the question "Do you have thoughts of harming or killing yourself?" and "Have you recently had thoughts about harming or killing others?". FALL RISK ASSESSMENT: Fall risk assessment completed. No fall risk identified. NUTRITIONAL RISK ASSESSMENT: The nutritional risk assessment revealed no deficiencies. FUNCTIONAL ASSESSMENT: Functional assessment: no impairments noted. LEARNING NEEDS ASSESSMENT: The learning needs assessment revealed no barriers. SKIN INTEGRITY ASSESSMENT: Skin integrity risk assessment completed. No skin integrity risk identified. --16:19 Astrid Garcia R.N. PROBLEMS: Dental Pain. Dental Caries. Constipation. UTI - Urinary Tract Infection. Abdominal Pain. --16:15 Astrid Garcia R.N. ADDITIONAL SURGERIES: Dental Surgery. --16:15 Astrid Garcia R.N. Interventions ID band on patient. --16:19 Astrid Garcia R.N. PHYSICAL ASSESSMENT Ambulatory to room. GENERAL / NEURO / PSYCH: Alert. Oriented X 4. Appears in no acute distress. RESPIRATORY: Respirations not labored. Breath sounds within normal limits. CVS: Capillary refill less than 2 seconds. SKIN: Skin intact. Skin is warm and dry. Normal skin turgor. --16:19 Astrid Garcia R.N. NURSING PROGRESS NOTES The initial plan of care for this patient has been created This plan of care was discussed with the patient. Reassurance given. Two patient identifiers checked. Call light placed in reach. Side rails up x 1. Bed placed in lowest position. Brakes of bed on. --16:19 Astrid Garcia R.N. DISPOSITION / DISCHARGE Departure time: 1655 PM. Condition at departure: stable. The goals identified in the patient's plan of care were met. No learning barriers present. Discharge instructions provided and reviewed with the patient. Reviewed medication(s) side effects, precautions, dosing and course information. Prescription(s) given to the patient (amox and zofran). Patient verbalized understanding. Written instructions provided in Greenlandic. No treatment instructions. The patient was discharged by the physician. He was discharged home and unaccompanied at time of discharge. He left the Emergency Department ambulatory and via private vehicle. Patient driving. FALL RISK ASSESSMENT: Fall risk assessment completed. No fall risk identified. RAFA COMA SCORE: [place] Coma Scale: 15- eyes open spontaneously (4); best verbal response- oriented x 4 (5); best motor response- obeys commands (6). --16:54 Astrid Garcia R.N. 16:53 08/27/16. BP: 127/53 (regular adult cuff) taken on the left arm, via an automated monitor, while sitting. HR: 105. RR: 15. O2 saturation: 100%. Temp: 98.1 F (oral). Pain level now: 02/28. --16:54 Astrid Garcia R.N. Locked/Released at 08/27/2016 16:55 by Astrid Garcia R.N.
--- NOTE | 2016-08-27 16:47 | ED NURSING NOTES ---
Clinical Report - Nurses [address] [place] [address] 08/27/2016 15:51 Patient: MICHAELA SHARMA TRIAGE Triage time 1613 PM. Acuity: LEVEL 5. Chief Complaint: (Dental pain). Alert. No acute distress. SEPSIS SCREEN: Sepsis Screen. Negative (no infection suspected/documented). --16:19 Astrid Garcia R.N. 16:13 08/27/16. BP: 123/72. HR: 110. RR: 15. O2 saturation: 97%. Temp: 98.1 F (oral). Pain level now: 02/28. --16:19 Astrid Garcia R.N. Weight: 90.7 kg stated. Height/Length: 70 inches Per Patient. BMI: 28.7. --16:14 Astrid Garcia R.N. Medications Acetaminophen Oral. Ibuprofen Oral. --16:15 Astrid Garcia R.N. Allergies No Known Drug Allergy. --16:15 Astrid Garcia R.N. Medication/allergy information source: the patient. --16:19 Astrid Garcia R.N. History Arrived by private vehicle. ( Pt states has an appointment for dentist next in [place], has been taking ibuprofen and tylenol for pain, unable to eat, denies fevers or chills. Pt states its a new tooth left upper). This is a new problem. (1 1/2 weeks). No fever, weakness, cough, difficulty breathing or skin rash. Denies muscle aches. 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 PAST MEDICAL HX: Immunizations: up-to-date. SOCIAL HX: Light tobacco smoker (cigarette). No alcohol use or drug use. No infectious disease exposure. ABUSE ASSESSMENT: No report of abuse. SELF HARM ASSESSMENT: A self harm assessment was performed. The patient answered "no" to the question "Do you have thoughts of harming or killing yourself?" and "Have you recently had thoughts about harming or killing others?". FALL RISK ASSESSMENT: Fall risk assessment completed. No fall risk identified. NUTRITIONAL RISK ASSESSMENT: The nutritional risk assessment revealed no deficiencies. FUNCTIONAL ASSESSMENT: Functional assessment: no impairments noted. LEARNING NEEDS ASSESSMENT: The learning needs assessment revealed no barriers. SKIN INTEGRITY ASSESSMENT: Skin integrity risk assessment completed. No skin integrity risk identified. --16:19 Astrid Garcia R.N. PROBLEMS: Dental Pain. Dental Caries. Constipation. UTI - Urinary Tract Infection. Abdominal Pain. --16:15 Astrid Garcia R.N. ADDITIONAL SURGERIES: Dental Surgery. --16:15 Astrid Garcia R.N. Interventions ID band on patient. --16:19 Astrid Garcia R.N. PHYSICAL ASSESSMENT Ambulatory to room. GENERAL / NEURO / PSYCH: Alert. Oriented X 4. Appears in no acute distress. RESPIRATORY: Respirations not labored. Breath sounds within normal limits. CVS: Capillary refill less than 2 seconds. SKIN: Skin intact. Skin is warm and dry. Normal skin turgor. --16:19 Astrid Garcia R.N. NURSING PROGRESS NOTES The initial plan of care for this patient has been created This plan of care was discussed with the patient. Reassurance given. Two patient identifiers checked. Call light placed in reach. Side rails up x 1. Bed placed in lowest position. Brakes of bed on. --16:19 Astrid Garcia R.N. DISPOSITION / DISCHARGE Departure time: 1655 PM. Condition at departure: stable. The goals identified in the patient's plan of care were met. No learning barriers present. Discharge instructions provided and reviewed with the patient. Reviewed medication(s) side effects, precautions, dosing and course information. Prescription(s) given to the patient (amox and zofran). Patient verbalized understanding. Written instructions provided in [place]. No treatment instructions. The patient was discharged by the physician. He was discharged home and unaccompanied at time of discharge. He left the Emergency Department ambulatory and via private vehicle. Patient driving. FALL RISK ASSESSMENT: Fall risk assessment completed. No fall risk identified. RAFA COMA SCORE: [place] Coma Scale: 15- eyes open spontaneously (4); best verbal response- oriented x 4 (5); best motor response- obeys commands (6). --16:54 Astrid Garcia R.N. 16:53 08/27/16. BP: 127/53 (regular adult cuff) taken on the left arm, via an automated monitor, while sitting. HR: 105. RR: 15. O2 saturation: 100%. Temp: 98.1 F (oral). Pain level now: 02/28. --16:54 Astrid Garcia R.N. Locked/Released at 08/27/2016 16:55 by Astrid Garcia R.N.
--- NOTE | 2016-08-27 16:47 | ED CLINICAL REPORT ---
Clinical Report - Physicians/Mid Levels [facility] [address] [place] [address] 08/27/2016 15:51 Patient: MICHAELA SHARMA Time Seen: 16:16. Arrived- By private vehicle. Historian- patient. HISTORY OF PRESENT ILLNESS Chief Complaint: DENTAL PAIN. This started about 10 days ago and is still present. It was gradual in onset and has been waxing/waning. No sore throat, mouth sores, nasal discharge or congestion or ear pain. No swollen jaw or face. He has had toothache. Similar symptoms previously: Several times. REVIEW OF SYSTEMS No fever, difficulty breathing or abdominal pain. PAST HISTORY PROBLEMS: Dental Pain. Dental Caries. Constipation. UTI - Urinary Tract Infection. Abdominal Pain ADDITIONAL SURGERIES: Dental Surgery. ADDITIONAL NOTES The nursing notes have been reviewed. PHYSICAL EXAM Vital Signs: 08/27/2016 16:53 BP: 127/53. HR: 105. RR: 15. O2 saturation: 100%. Temp: 98.1 F. Pain level now: 02/28. 08/27/2016 16:13 BP: 123/72. HR: 110. RR: 15. O2 saturation: 97%. Temp: 98.1 F. Pain level now: 02/28. Appearance: Alert. No acute distress. Eyes: Conjunctivae and eyelids normal. ENT: Extensive dental decay. Pharynx normal. No trismus. Neck: Normal inspection. Trachea midline. No adenopathy. Thyroid normal. Neck supple. PROGRESS AND PROCEDURES Course of Care: Pt declines a dental block. Disposition: Discharged. Condition: stable. CLINICAL IMPRESSION Moderate dental pain. INSTRUCTIONS (I AM HAPPY TO DO A DENTAL BLOCK TO RELIEVE YOUR PAIN IF YOU CHANGE YOUR MIND.). Prescription Medications: Zofran 4 mg: Take 1 orally every six hours as needed for nausea/vomiting. Dispense ten (10). No refills. Substitution is permissible. Amoxicillin 500 mg tablets: Take 1 orally every 8 hours for 10 days. Dispense thirty (30). No refills. Follow-up: Follow up with a dentist as scheduled. Understanding of the discharge instructions verbalized by patient. (Electronically signed by Jeff Ortiz MD 08/29/2016 21:02)
--- NOTE | 2016-08-29 21:02 | ED MAR SUMMARY ---
..... Medication Administration Record [facility] [address] [place], [place] [id number] Patient: MICHAELA SHARMA Visit ID: [id number] 30y, M Weight: 90.7 kg Height/Length: 70 in BMI: 28.7 ALLERGIES: No Known Drug Allergy
--- NOTE | 2016-08-29 21:02 | ED DISCHARGE INSTRUCTIONS ---
Patient: MICHAELA SHARMA General Instructions [facility] VisitID: [id number] [place] [address] 30y, M Registration Date/Time: 08/27/2016 Moderate dental pain. INSTRUCTIONS (I AM HAPPY TO DO A DENTAL BLOCK TO RELIEVE YOUR PAIN IF YOU CHANGE YOUR MIND.). Prescription Medications: Zofran 4 mg: Take 1 orally every six hours as needed for nausea/vomiting. Dispense ten (10). No refills. Substitution is permissible. Amoxicillin 500 mg tablets: Take 1 orally every 8 hours for 10 days. Dispense thirty (30). No refills. Follow-up: Follow up with a dentist as scheduled. Understanding of the discharge instructions verbalized by patient. ADDITIONAL INFORMATION Dental Pain A crack or cavity in the tooth, which exposes the sensitive inner area of the tooth can cause tooth pain. An infection in the gum or the root of the tooth can cause pain and swelling. The pain is often made worse by drinking hot or cold fluids, or biting on hard foods. Pain may spread from the tooth to the ear or jaw on the same side. Home Care: Avoid hot and cold foods and liquids since your tooth may be sensitive to temperature changes. If your tooth is chipped or cracked, or if there is a large open cavity, apply OIL OF CLOVES (available xwmy-ypy-wylggyz in drug stores) directly to the tooth to reduce pain. Some pharmacies carry an agpk-sum-syqlsyy "toothache kit." This contains a paste, which can be applied over the exposed tooth to decrease sensitivity. A cold pack on your jaw over the sore area may help reduce pain. You may use acetaminophen (Tylenol) or ibuprofen (Motrin, Advil) to control pain, unless another medicine was prescribed. [ NOTE: If you have chronic liver or kidney disease or ever had a stomach ulcer or GI bleeding, talk with your doctor before using these medicines.] If you have signs of an infection, an antibiotic will be given. Take it as directed. Follow-Up as directed with a dentist. Your pain may go away with the treatment given. However, only a dentist can fully evaluate and treat the cause and prevent the pain from coming back again. TOOTHACHE IS A SIGN OF DISEASE IN YOUR TOOTH AND SHOULD BE EXAMINED AND TREATED BY A DENTIST. Get Prompt Medical Attention if any of the following occur: Your face becomes swollen or red Pain worsens or spreads to the neck Fever over 100.4 F (38.0 C) Unusual drowsiness; headache or stiff neck; weakness or fainting Pus drains from the tooth Difficulty swallowing or breathing You have been given the following additional information: Dental Pain (Electronically signed by Jeff Ortiz MD 08/29/2016 21:02)
--- NOTE | 2016-08-29 21:02 | ED DISCHARGE INSTRUCTIONS ---
Patient: MICHAELA SHARMA General Instructions [facility] VisitID: [id number] [place] [address] 30y, M Registration Date/Time: 08/27/2016 Moderate dental pain. INSTRUCTIONS (I AM HAPPY TO DO A DENTAL BLOCK TO RELIEVE YOUR PAIN IF YOU CHANGE YOUR MIND.). Prescription Medications: Zofran 4 mg: Take 1 orally every six hours as needed for nausea/vomiting. Dispense ten (10). No refills. Substitution is permissible. Amoxicillin 500 mg tablets: Take 1 orally every 8 hours for 10 days. Dispense thirty (30). No refills. Follow-up: Follow up with a dentist as scheduled. Understanding of the discharge instructions verbalized by patient. ADDITIONAL INFORMATION Dental Pain A crack or cavity in the tooth, which exposes the sensitive inner area of the tooth can cause tooth pain. An infection in the gum or the root of the tooth can cause pain and swelling. The pain is often made worse by drinking hot or cold fluids, or biting on hard foods. Pain may spread from the tooth to the ear or jaw on the same side. Home Care: Avoid hot and cold foods and liquids since your tooth may be sensitive to temperature changes. If your tooth is chipped or cracked, or if there is a large open cavity, apply OIL OF CLOVES (available lztr-cqz-auvbepp in drug stores) directly to the tooth to reduce pain. Some pharmacies carry an kwgl-wfi-agbcokk "toothache kit." This contains a paste, which can be applied over the exposed tooth to decrease sensitivity. A cold pack on your jaw over the sore area may help reduce pain. You may use acetaminophen (Tylenol) or ibuprofen (Motrin, Advil) to control pain, unless another medicine was prescribed. [ NOTE: If you have chronic liver or kidney disease or ever had a stomach ulcer or GI bleeding, talk with your doctor before using these medicines.] If you have signs of an infection, an antibiotic will be given. Take it as directed. Follow-Up as directed with a dentist. Your pain may go away with the treatment given. However, only a dentist can fully evaluate and treat the cause and prevent the pain from coming back again. TOOTHACHE IS A SIGN OF DISEASE IN YOUR TOOTH AND SHOULD BE EXAMINED AND TREATED BY A DENTIST. Get Prompt Medical Attention if any of the following occur: Your face becomes swollen or red Pain worsens or spreads to the neck Fever over 100.4 F (38.0 C) Unusual drowsiness; headache or stiff neck; weakness or fainting Pus drains from the tooth Difficulty swallowing or breathing You have been given the following additional information: Dental Pain (Electronically signed by Jeff Ortiz MD 08/29/2016 21:02)
--- NOTE | 2016-08-29 21:02 | ED MED RECONCILIATION SUMMARY ---
Patient: MICHAELA SHARMA Medication Reconciliation Report [facility] VisitID: [id number] [address] [place] [address] 30y, M Registration Date/Time: 08/27/2016 Weight: 90.7 kg Height/Length: 70 in. BMI: 28.7 ALLERGIES: No Known Drug Allergy The patient's Home Medications are listed below: THE FOLLOWING MEDICATIONS NEED TO BE RECONCILED: Acetaminophen Oral Ibuprofen Oral The source(s) of the original Home Medication information: patient The following Medications were given to the patient in the Emergency Department: None. The following Medications were prescribed to the patient: Zofran 4 mg: Take 1 orally every six hours as needed for nausea/vomiting. Dispense ten (10). No refills. Substitution is permissible. -- Jeff Ortiz MD Amoxicillin 500 mg tablets: Take 1 orally every 8 hours for 10 days. Dispense thirty (30). No refills. -- Jeff Ortiz MD
--- NOTE | 2016-08-29 21:02 | ED MAR SUMMARY ---
..... Medication Administration Record [facility] [address] [place], [place] [id number] Patient: MICHAELA SHARMA Visit ID: [id number] 30y, M Weight: 90.7 kg Height/Length: 70 in BMI: 28.7 ALLERGIES: No Known Drug Allergy
--- NOTE | 2016-08-29 21:02 | ED MED RECONCILIATION SUMMARY ---
Patient: MICHAELA SHARMA Medication Reconciliation Report [facility] VisitID: [id number] [address] [place] [address] 30y, M Registration Date/Time: 08/27/2016 Weight: 90.7 kg Height/Length: 70 in. BMI: 28.7 ALLERGIES: No Known Drug Allergy The patient's Home Medications are listed below: THE FOLLOWING MEDICATIONS NEED TO BE RECONCILED: Acetaminophen Oral Ibuprofen Oral The source(s) of the original Home Medication information: patient The following Medications were given to the patient in the Emergency Department: None. The following Medications were prescribed to the patient: Zofran 4 mg: Take 1 orally every six hours as needed for nausea/vomiting. Dispense ten (10). No refills. Substitution is permissible. -- Jeff Ortiz MD Amoxicillin 500 mg tablets: Take 1 orally every 8 hours for 10 days. Dispense thirty (30). No refills. -- Jeff Ortiz MD
== END 2016-08-27 16:55 | disposition home or self-care (01) ==
LOC: ED SRH 15:51
DX: K08.89 Other specified disorders of teeth and supporting structures (principal); Z72.0 Tobacco use

== ENCOUNTER 2016-09-02 01:08 | Emergency (ER) | payer OTHER ==
--- NOTE | 2016-09-02 02:38 | ED CLINICAL REPORT ---
Clinical Report - Physicians/Mid Levels [facility] [address] [place] [address] 09/02/2016 1:07 Patient: MICHAELA SHARMA Time Seen: 01:22; initial patient contact. Arrived- By private vehicle. Historian- patient. HISTORY OF PRESENT ILLNESS Chief Complaint: ALLERGIC REACTION and SKIN RASH. The patient has had a skin rash and itching but not had swelling or trouble swallowing. No difficulty breathing, dizziness or fainting episodes. This started today and is still present. It was gradual in onset. A cause has been identified. He has recently taken medication (Tramadol). The patient was not assessed by EMS prior to arrival. No treatment prior to arrival. Similar symptoms previously: None. Recent medical care: The patient was seen recently at another facility in a clinic. REVIEW OF SYSTEMS No cough, fever, weakness, chest pain or palpitations. No vomiting or diarrhea. All systems otherwise negative, except as recorded above. PAST HISTORY Dental Pain. Dental Caries. Constipation. UTI - Urinary Tract Infection. Abdominal Pain. ADDITIONAL SURGERIES: Dental Surgery. SOCIAL HISTORY Current every day smoker. No alcohol use or drug use. ADDITIONAL NOTES The nursing notes have been reviewed with agreement regarding the chief complaint, PMH and patient medications and allergies. PHYSICAL EXAM Vital Signs: 09/02/2016 01:14 BP: 124/81. HR: 90. RR: 18. O2 saturation: 99%. Temp: 98.2 F. Have been reviewed as normal. Appearance: Alert. Oriented X3. No acute distress. Head and Neck: Normal external inspection. ENT: Pharynx normal. Voice normal. CVS: Normal heart rate and rhythm. Heart sounds normal. Respiratory: No respiratory distress. Breath sounds normal. Skin: Moderate urticaria involving the face and chest. Neuro: Oriented X 3. PROGRESS AND PROCEDURES Course of Care: Benadryl 50 mg PO given. Prednisone 40 mg PO given. Famotidine 20 PO given. Physical exam findings are improved. Symptoms better. Disposition: Discharged home in good and improved condition. Condition: good. CLINICAL IMPRESSION Generalized drug rash due to an oral drug (Tramadol). INSTRUCTIONS Your Current Medications: CONTINUE TAKING THE FOLLOWING MEDICATIONS: Acetaminophen Oral. Amoxicillin Oral : put on by dentist on Wednesday08/31/16. Ibuprofen Oral. Prescription Medications: Ranitidine 150 mg: take 1 orally every 12 hours. Dispense thirty (30). No refills. Medrol Dosepak: take according to package directions. Dispense one (1) dosepak. No refill. Substitution is permissible. Vistaril 50 mg: take 1 orally every 6 hours as needed for itching. Dispense thirty (30). No refill. Substitution is permissible. Follow-up: Follow up with your doctor in about two days. Call for an appointment. Screening today revealed the patient's blood pressure to be in the pre-hypertensive range. The patient should follow up with a primary care provider for blood pressure management. (Electronically signed by Zurdo Tracey Dr. 09/02/2016 2:41)
--- NOTE | 2016-09-02 02:38 | ED ORDER SUMMARY ---
..... Patient: MICHAELA SHARMA OrderSheet [facility] VisitID: [id number] [place] [address] 30y, M Registration Date/Time: 09/02/2016 ORDER SHEET Weight: 90.7 kg (stated) Allergies: Tramadol, Codeine GENERAL ORDERS: MEDICATION ORDERS: Benadryl PO 50 mg (NOW) (01:40 09/02/2016 Yahir Chamorro) (1:45 EInderbitzen R.N.) Famotidine PO 40 mg (NOW) (01:40 09/02/2016 Yahir Chamorro) (1:45 EIndanca R.N.) Prednisone PO 40 mg (NOW) (:40 09/02/2016 Yahir Chamorro) (1:46 EInderlatashazen R.N.) IV FLUIDS: ORDER SHEET NOTES: [Electronically signed by Zurdo Tracey Dr. (02:41 09/02/2016)] [Electronically signed by Magy Dukes R.N. (02:49 09/02/2016)] [Electronically locked/signed by Magy Dukes R.N. (02:49 09/02/2016)]
--- NOTE | 2016-09-02 02:38 | ED ORDER SUMMARY ---
..... Patient: MICHAELA SHARMA OrderSheet [facility] VisitID: [id number] [place] [address] 30y, M Registration Date/Time: 09/02/2016 ORDER SHEET Weight: 90.7 kg (stated) Allergies: Tramadol, Codeine GENERAL ORDERS: MEDICATION ORDERS: Benadryl PO 50 mg (NOW) (01:40 09/02/2016 Yahir Chamorro) (1:45 EInderbitzen R.N.) Famotidine PO 40 mg (NOW) (01:40 09/02/2016 Yahir Chamorro) (1:45 EIndanca R.N.) Prednisone PO 40 mg (NOW) (:40 09/02/2016 Yahir Chamorro) (1:46 EInderlatashazen R.N.) IV FLUIDS: ORDER SHEET NOTES: [Electronically signed by Zurdo Tracey Dr. (02:41 09/02/2016)] [Electronically signed by Magy Dukes R.N. (02:49 09/02/2016)] [Electronically locked/signed by Magy Dukes R.N. (02:49 09/02/2016)]
--- NOTE | 2016-09-02 02:38 | ED CLINICAL REPORT ---
Clinical Report - Physicians/Mid Levels [facility] [address] [place] [address] 09/02/2016 1:07 Patient: MICHAELA SHARMA Time Seen: 01:22; initial patient contact. Arrived- By private vehicle. Historian- patient. HISTORY OF PRESENT ILLNESS Chief Complaint: ALLERGIC REACTION and SKIN RASH. The patient has had a skin rash and itching but not had swelling or trouble swallowing. No difficulty breathing, dizziness or fainting episodes. This started today and is still present. It was gradual in onset. A cause has been identified. He has recently taken medication (Tramadol). The patient was not assessed by EMS prior to arrival. No treatment prior to arrival. Similar symptoms previously: None. Recent medical care: The patient was seen recently at another facility in a clinic. REVIEW OF SYSTEMS No cough, fever, weakness, chest pain or palpitations. No vomiting or diarrhea. All systems otherwise negative, except as recorded above. PAST HISTORY Dental Pain. Dental Caries. Constipation. UTI - Urinary Tract Infection. Abdominal Pain. ADDITIONAL SURGERIES: Dental Surgery. SOCIAL HISTORY Current every day smoker. No alcohol use or drug use. ADDITIONAL NOTES The nursing notes have been reviewed with agreement regarding the chief complaint, PMH and patient medications and allergies. PHYSICAL EXAM Vital Signs: 09/02/2016 01:14 BP: 124/81. HR: 90. RR: 18. O2 saturation: 99%. Temp: 98.2 F. Have been reviewed as normal. Appearance: Alert. Oriented X3. No acute distress. Head and Neck: Normal external inspection. ENT: Pharynx normal. Voice normal. CVS: Normal heart rate and rhythm. Heart sounds normal. Respiratory: No respiratory distress. Breath sounds normal. Skin: Moderate urticaria involving the face and chest. Neuro: Oriented X 3. PROGRESS AND PROCEDURES Course of Care: Benadryl 50 mg PO given. Prednisone 40 mg PO given. Famotidine 20 PO given. Physical exam findings are improved. Symptoms better. Disposition: Discharged home in good and improved condition. Condition: good. CLINICAL IMPRESSION Generalized drug rash due to an oral drug (Tramadol). INSTRUCTIONS Your Current Medications: CONTINUE TAKING THE FOLLOWING MEDICATIONS: Acetaminophen Oral. Amoxicillin Oral : put on by dentist on Wednesday08/31/16. Ibuprofen Oral. Prescription Medications: Ranitidine 150 mg: take 1 orally every 12 hours. Dispense thirty (30). No refills. Medrol Dosepak: take according to package directions. Dispense one (1) dosepak. No refill. Substitution is permissible. Vistaril 50 mg: take 1 orally every 6 hours as needed for itching. Dispense thirty (30). No refill. Substitution is permissible. Follow-up: Follow up with your doctor in about two days. Call for an appointment. Screening today revealed the patient's blood pressure to be in the pre-hypertensive range. The patient should follow up with a primary care provider for blood pressure management. (Electronically signed by Zurdo Tracey Dr. 09/02/2016 2:41)
--- NOTE | 2016-09-02 02:38 | ED NURSING NOTES ---
Clinical Report - Nurses [facility] [address] [place] [address] 09/02/2016 1:07 Patient: MICHAELA SHARMA TRIAGE Triage time 01:Sep 02 2016. Acuity: LEVEL 4. Chief Complaint: SKIN RASH. Alert. No acute distress. --01:21 Nevaeh Syed R.N. 01:14 09/02/16. BP: 124/81. HR: 90. RR: 18. O2 saturation: 99%. Temp: 98.2 F. Pain level now 11/28. --01:21 Nevaeh Syed R.N. Weight: 90.7 kg stated. Height/Length: 70 inches Per Patient. BMI: 28.7. --01:14 Nevaeh Syed R.N. Medications Acetaminophen Oral. Ibuprofen Oral. --01:18 Nevaeh Syed R.N. Amoxicillin Oral (put on by dentist on Wednesday08/31/16). --01:19 Nevaeh Syed R.N. Medication/allergy information source: the patient. --01:21 Nevaeh Syed R.N. Allergies Tramadol. Severe(itching, rash) (red rash to face, neck, and back) --01:18 Nevaeh Syde R.N. Codeine. (intolerance - vomiting) --01:19 Nevaeh Syed R.N. History Arrived by private vehicle. Historian: patient. Primary physician (none). ( [place] Tooth removed on Wednesday, Amoxicillian and T3 Rx. T3 made him puke and sick. New RX for Tramadol, broke out into a Rash on face, neck and back.). Location - face, neck and back. This started today. It is described as itchy. He has recently taken medication. 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 PAST MEDICAL HX: Immunizations: up-to-date. SOCIAL HX: Current every day light tobacco smoker (cigarette)- less than 1/2 a pack per day. No alcohol use or drug use. NUTRITIONAL RISK ASSESSMENT: The nutritional risk assessment revealed no deficiencies. FUNCTIONAL ASSESSMENT: Functional assessment: no impairments noted. LEARNING NEEDS ASSESSMENT: The learning needs assessment revealed no barriers. SKIN INTEGRITY ASSESSMENT: Skin integrity risk assessment completed. No skin integrity risk identified. --01:21 Nevaeh Syed R.N. PROBLEMS: Dental Pain. Dental Caries. Constipation. UTI - Urinary Tract Infection. Abdominal Pain. --01:20 Nevaeh Syed R.N. ADDITIONAL SURGERIES: Dental Surgery. --01:20 Nevaeh Syed R.N. Interventions ID band on patient. To room. --01:21 Nevaeh Syed R.N. PHYSICAL ASSESSMENT 01:37 09/02/16. GENERAL / NEURO / PSYCH: Alert. Oriented X 4. HEENT: Pupils equal, round and reactive to light. Mucous membranes are pink. RESPIRATORY: Respirations not labored. Breath sounds within normal limits. SKIN: Skin rash present. Large area of erythema on the face- back, arms and chest. --01:37 Magy Dukes R.N. NURSING PROGRESS NOTES Patient ready for evaluation- ED physician notified. --01:21 Nevaeh Syed R.N. 02:15 09/02/16. Patient waiting for disposition. --02:15 Magy Dukes R.N. 02:30 09/02/16. Reassessment after medication administered. He is calm and resting quietly and has had no adverse reaction. Overall patient status is improved- he states feels better. --02:47 Magy Dukes R.N. DISPOSITION / DISCHARGE 01:45 09/02/2016 Benadryl (DiphenhydrAMINE HCl) PO Capsules 50 mg given. Allergies verified, confirmed 5 rights and sedative warning given to the patient. --01:45 Magy Dukes R.N. 01:45 09/02/2016 Famotidine PO Tablets 40 mg given. Allergies verified and confirmed 5 rights. --01:45 Magy Dukes R.N. 01:45 09/02/2016 Prednisone PO Tablets 40 mg given. Allergies verified and confirmed 5 rights. --01:46 Magy Dukes R.N. 02:48 09/02/16. Departure time: 02:48 Sep 02 2016. Condition at departure: improved and stable. The goals identified in the patient's plan of care were met. No learning barriers present. Reviewed medication(s) side effects, precautions, dosing and course information. Prescription(s) given to the patient. Reviewed referral to a primary care physician for followup. Summary of care provided to patient via paper. Patient verbalized understanding. Written instructions provided in Tajik. The patient was discharged home and accompanied by spouse. He left the Emergency Department ambulatory and via (walking home). Patient driving. FALL RISK ASSESSMENT: Fall risk assessment completed. No fall risk identified. --02:49 Magy Dukes R.N. 02:48 09/02/16. BP: 108/69. HR: 83. RR: 16. O2 saturation: 95%. Temp: 98.0 F. Pain level now 0/10. --02:49 Magy Dukes R.N. Locked/Released at 09/02/2016 2:49 by Magy Dukes R.N.
--- NOTE | 2016-09-02 02:38 | ED NURSING NOTES ---
Clinical Report - Nurses [facility] [address] [place] [address] 09/02/2016 1:07 Patient: MICHAELA SHARMA TRIAGE Triage time 01:Sep 02 2016. Acuity: LEVEL 4. Chief Complaint: SKIN RASH. Alert. No acute distress. --01:21 Nevaeh Syed R.N. 01:14 09/02/16. BP: 124/81. HR: 90. RR: 18. O2 saturation: 99%. Temp: 98.2 F. Pain level now 11/28. --01:21 Nevaeh Syed R.N. Weight: 90.7 kg stated. Height/Length: 70 inches Per Patient. BMI: 28.7. --01:14 Nevaeh Syed R.N. Medications Acetaminophen Oral. Ibuprofen Oral. --01:18 Nevaeh Syed R.N. Amoxicillin Oral (put on by dentist on Wednesday08/31/16). --01:19 Nevaeh Syed R.N. Medication/allergy information source: the patient. --01:21 Nveaeh Syed R.N. Allergies Tramadol. Severe(itching, rash) (red rash to face, neck, and back) --01:18 Nevaeh Syed R.N. Codeine. (intolerance - vomiting) --01:19 Nevaeh Syed R.N. History Arrived by private vehicle. Historian: patient. Primary physician (none). ( [place] Tooth removed on Wednesday, Amoxicillian and T3 Rx. T3 made him puke and sick. New RX for Tramadol, broke out into a Rash on face, neck and back.). Location - face, neck and back. This started today. It is described as itchy. He has recently taken medication. Treatment [employer]: None. PAST MEDICAL HX: Immunizations: up-to-date. SOCIAL HX: Current every day light tobacco smoker (cigarette)- less than 1/2 a pack per day. No alcohol use or drug use. NUTRITIONAL RISK ASSESSMENT: The nutritional risk assessment revealed no deficiencies. FUNCTIONAL ASSESSMENT: Functional assessment: no impairments noted. LEARNING NEEDS ASSESSMENT: The learning needs assessment revealed no barriers. SKIN INTEGRITY ASSESSMENT: Skin integrity risk assessment completed. No skin integrity risk identified. --01:21 Nevaeh Syed R.N. PROBLEMS: Dental Pain. Dental Caries. Constipation. UTI - Urinary Tract Infection. Abdominal Pain. --01:20 Nevaeh Syed R.N. ADDITIONAL SURGERIES: Dental Surgery. --01:20 Nevaeh Syed R.N. Interventions ID band on patient. To room. --01:21 Nevaeh Syed R.N. PHYSICAL ASSESSMENT 01:37 09/02/16. GENERAL / NEURO / PSYCH: Alert. Oriented X 4. HEENT: Pupils equal, round and reactive to light. Mucous membranes are pink. RESPIRATORY: Respirations not labored. Breath sounds within normal limits. SKIN: Skin rash present. Large area of erythema on the face- back, arms and chest. --01:37 Magy Dukes R.N. NURSING PROGRESS NOTES Patient ready for evaluation- ED physician notified. --01:21 Nevaeh Syed R.N. 02:15 09/02/16. Patient waiting for disposition. --02:15 Magy Dukes R.N. 02:30 09/02/16. Reassessment after medication administered. He is calm and resting quietly and has had no adverse reaction. Overall patient status is improved- he states feels better. --02:47 Magy Dukes R.N. DISPOSITION / DISCHARGE 01:45 09/02/2016 Benadryl (DiphenhydrAMINE HCl) PO Capsules 50 mg given. Allergies verified, confirmed 5 rights and sedative warning given to the patient. --01:45 Magy Dukes R.N. 01:45 09/02/2016 Famotidine PO Tablets 40 mg given. Allergies verified and confirmed 5 rights. --01:45 Magy Dukes R.N. 01:45 09/02/2016 Prednisone PO Tablets 40 mg given. Allergies verified and confirmed 5 rights. --01:46 Magy Dukes R.N. 02:48 09/02/16. Departure time: 02:48 Sep 02 2016. Condition at departure: improved and stable. The goals identified in the patient's plan of care were met. No learning barriers present. Reviewed medication(s) side effects, precautions, dosing and course information. Prescription(s) given to the patient. Reviewed referral to a primary care physician for followup. Summary of care provided to patient via paper. Patient verbalized understanding. Written instructions provided in Icelandic. The patient was discharged home and accompanied by spouse. He left the Emergency Department ambulatory and via (walking home). Patient driving. FALL RISK ASSESSMENT: Fall risk assessment completed. No fall risk identified. --02:49 Magy Dukes R.N. 02:48 09/02/16. BP: 108/69. HR: 83. RR: 16. O2 saturation: 95%. Temp: 98.0 F. Pain level now 0/10. --02:49 Magy Dukes R.N. Locked/Released at 09/02/2016 2:49 by Magy Dukes R.N.
--- NOTE | 2016-09-02 02:49 | ED DISCHARGE INSTRUCTIONS ---
Patient: MICHAELA SHARMA General Instructions [facility] VisitID: [id number] [place] [address] 30y, M Registration Date/Time: 09/02/2016 Generalized drug rash due to an oral drug (Tramadol). INSTRUCTIONS Your Current Medications: CONTINUE TAKING THE FOLLOWING MEDICATIONS: Acetaminophen Oral. Amoxicillin Oral : put on by dentist on Wednesday08/31/16. Ibuprofen Oral. Prescription Medications: Ranitidine 150 mg: take 1 orally every 12 hours. Dispense thirty (30). No refills. Medrol Dosepak: take according to package directions. Dispense one (1) dosepak. No refill. Substitution is permissible. Vistaril 50 mg: take 1 orally every 6 hours as needed for itching. Dispense thirty (30). No refill. Substitution is permissible. Follow-up: Follow up with your doctor in about two days. Call for an appointment. Screening today revealed the patient's blood pressure to be in the pre-hypertensive range. The patient should follow up with a primary care provider for blood pressure management. ADDITIONAL INFORMATION Drug Reaction: Allergic You are having an allergic reaction to a drug you have taken. This causes an itchy rash and sometimes swelling of various parts of the body. It may also cause trouble swallowing or breathing. The rash may take a few hours or up to two weeks to go away. In the future, remember to tell your doctor about your allergy to this drug so that drugs of this type won't be used again. Home Care: 1) Throw the drug away and do not take it again. The next reaction may be much worse. 2) Avoid tight clothing and anything that heats up your skin (hot showers/baths, direct sunlight) since heat will make itching worse. 3) An ice pack (ice cubes in a plastic bag, wrapped in a towel) will relieve local areas of intense itching and redness. Lanacaine cream or Solarcaine spray (or other product containing "benzocaine") will reduce the itching. 4) Avoid scratching which may worsen the reaction, damage your skin and lead to an infection. 5) Oral Benadryl (diphenhydramine) is an antihistamine available at drug and grocery stores. Unless a prescription antihistamine was given, Benadryl may be used to reduce itching if large areas of the skin are involved. Use lower doses during the daytime and higher doses at bedtime since the drug may make you sleepy. [NOTE: Do not use Benadryl if you have glaucoma or if you are a man with trouble urinating due to an enlarged prostate.] Claritin (loratadine) is an antihistamine that causes less drowsiness and is a good alternative for daytime use. Follow Up with your doctor or this facility in the next two days if your symptoms do not continue to improve. Get Prompt Medical Attention if any of the following occur: -- Wheezing, shortness of breath or difficulty swallowing -- Increased swelling in the face, eyelids, mouth, lips, tongue or throat -- Dizziness, weakness or fainting Ranitidine Hydrochloride Oral tablet What is this medicine? RANITIDINE (ra COMPA quick) is a type of antihistamine that blocks the release of stomach acid. It is used to treat stomach or intestinal ulcers. It can relieve ulcer pain and discomfort, and the heartburn from acid reflux. How should I use this medicine? Take this medicine by mouth with a glass of water. Follow the directions on the prescription label. If you only take this medicine once a day, take it at bedtime. Take your medicine at regular intervals. Do not take your medicine more often than directed. Do not stop taking except on your doctor's advice. Talk to your behavioral health care coordinator regarding the use of this medicine in children. Special care may be needed. What side effects may I notice from receiving this medicine? Side effects that you should report to your doctor or health personal care assistant as soon as possible: agitation, nervousness, depression, hallucinations allergic reactions like skin rash, itching or hives, swelling of the face, lips, or tongue breast enlargement in both males and females breathing problems redness, blistering, peeling or loosening of the skin, including inside the mouth unusual bleeding or bruising unusually weak or tired vomiting yellowing of the skin or eyes Side effects that usually do not require medical attention (report to your doctor or health personal care assistant if they continue or are bothersome): constipation or diarrhea dizziness headache nausea What may interact with this medicine? atazanavir delavirdine gefitinib glipizide ketoconazole midazolam procainamide propantheline triazolam warfarin What if I miss a dose? If you miss a dose, take it as soon as you can. If it is almost time for your next dose, take only that dose. Do not take double or extra doses. Where should I keep my medicine? Keep out of the reach of children. Store at room temperature between 15 and 30 degrees C (59 and 86 degrees F). Protect from light and moisture. Keep container tightly closed. Throw away any unused medicine after the expiration date. What should I tell my health care provider before I take this medicine? They need to know if you have any of these conditions: kidney disease liver disease porphyria an unusual or allergic reaction to ranitidine, other medicines, foods, dyes, or preservatives or trying to get breast-feeding What should I watch for while using this medicine? Tell your doctor or health personal care assistant if your condition does not start to get better or gets worse. You may need to take this medicine for several days as prescribed before your symptoms get better. Finish the full course of tablets prescribed, even if you feel better. Do not smoke cigarettes or drink alcohol. These increase irritation in your stomach and can lengthen the time it will take for ulcers to heal. Cigarettes and alcohol can also make acid reflux or heartburn worse. If you get black, tarry stools or vomit up what looks like coffee grounds, call your doctor or health personal care assistant at once. You may have a bleeding ulcer. Methylprednisolone Oral tablet What is this medicine? METHYLPREDNISOLONE (meth ill pred NISS oh lone) is a corticosteroid. It is commonly used to treat inflammation of the skin, joints, lungs, and other organs. Common conditions treated include asthma, allergies, and arthritis. It is also used for other conditions, such as blood disorders and diseases of the adrenal glands. How should I use this medicine? Take this medicine by mouth with a drink of water. Follow the directions on the prescription label. Take it with food or milk to avoid stomach upset. If you are taking this medicine once a day, take it in the morning. Do not take more medicine than you are told to take. Do not suddenly stop taking your medicine because you may develop a severe reaction. Your doctor will tell you how much medicine to take. If your doctor wants you to stop the medicine, the dose may be slowly lowered over time to avoid any side effects. Talk to your behavioral health care coordinator regarding the use of this medicine in children. Special care may be needed. What side effects may I notice from receiving this medicine? Side effects that you should report to your doctor or health personal care assistant as soon as possible: allergic reactions like skin rash, itching or hives, swelling of the face, lips, or tongue eye pain, decreased or blurred vision, or bulging eyes fever, sore throat, sneezing, cough, or other signs of infection, wounds that will not heal increased thirst mental depression, mood swings, mistaken feelings of self importance or of being mistreated pain in hips, back, ribs, arms, shoulders, or legs swelling of the ankles, feet, hands trouble passing urine or change in the amount of urine Side effects that usually do not require medical attention (report to your doctor or health personal care assistant if they continue or are bothersome): confusion, excitement, restlessness headache nausea, vomiting skin problems, acne, thin and shiny skin weight gain What may interact with this medicine? Do not take this medicine with any of the following medications: mifepristone This medicine may also interact with the following medications: tacrolimus vaccines warfarin What if I miss a dose? If you miss a dose, take it as soon as you can. If it is almost time for your next dose, talk to your doctor or health personal care assistant. You may need to miss a dose or take an extra dose. Do not take double or extra doses without advice. Where should I keep my medicine? Keep out of the reach of children. Store at room temperature between 20 and 25 degrees C (68 and 77 degrees F). Throw away any unused medicine after the expiration date. What should I tell my health care provider before I take this medicine? They need to know if you have any of these conditions: Asha's syndrome diabetes glaucoma heart problems or disease high blood pressure infection such as herpes, measles, tuberculosis, or chickenpox kidney disease liver disease mental problems myasthenia gravis osteoporosis seizures stomach ulcer or intestine disease including colitis and diverticulitis thyroid problem an unusual or allergic reaction to lactose, methylprednisolone, other medicines, foods, dyes, or preservatives or trying to get breast-feeding What should I watch for while using this medicine? Visit your doctor or health personal care assistant for regular checks on your progress. If you are taking this medicine for a long time, carry an identification card with your name and address, the type and dose of your medicine, and your doctor's name and address. The medicine may increase your risk of getting an infection. Stay away from people who are sick. Tell your doctor or health personal care assistant if you are around anyone with measles or chickenpox. If you are going to have surgery, tell your doctor or health personal care assistant that you have taken this medicine within the last twelve months. Ask your doctor or health personal care assistant about your diet. You may need to lower the amount of salt you eat. The medicine can increase your blood sugar. If you are a diabetic check with your doctor if you need help adjusting the dose of your diabetic medicine. Hydroxyzine Pamoate Oral capsule What is this medicine? HYDROXYZINE (nena DROX i zeen) is an antihistamine. This medicine is used to treat allergy symptoms. It is also used to treat anxiety and tension. This medicine can be used with other medicines to induce sleep before surgery. How should I use this medicine? Take this medicine by mouth with a full glass of water. Follow the directions on the prescription label. You may take this medicine with food or on an empty stomach. Take your medicine at regular intervals. Do not take your medicine more often than directed. Talk to your behavioral health care coordinator regarding the use of this medicine in children. Special care may be needed. While this drug may be prescribed for children as young as 6 years of age for selected conditions, precautions do apply. Patients over 65 years old may have a stronger reaction and need a smaller dose. What side effects may I notice from receiving this medicine? Side effects that you should report to your doctor or health personal care assistant as soon as possible: fast or irregular heartbeat difficulty passing urine seizures slurred speech or confusion tremor Side effects that usually do not require medical attention (report to your doctor or health personal care assistant if they continue or are bothersome): constipation drowsiness fatigue headache stomach upset What may interact with this medicine? alcohol barbiturate medicines for sleep or seizures medicines for colds, allergies medicines for depression, anxiety, or emotional disturbances medicines for pain medicines for sleep muscle relaxants What if I miss a dose? If you miss a dose, take it as soon as you can. If it is almost time for your next dose, take only that dose. Do not take double or extra doses. Where should I keep my medicine? Keep out of the reach of children. Store at room temperature between 15 and 30 degrees C (59 and 86 degrees F). Keep container tightly closed. Throw away any unused medicine after the expiration date. What should I tell my health care provider before I take this medicine? They need to know if you have any of these conditions: any chronic illness difficulty passing urine glaucoma heart disease kidney disease liver disease lung disease an unusual or allergic reaction to hydroxyzine, cetirizine, other medicines, foods, dyes, or preservatives or trying to get breast-feeding What should I watch for while using this medicine? Tell your doctor or health personal care assistant if your symptoms do not improve. You may get drowsy or dizzy. Do not drive, use machinery, or do anything that needs mental alertness until you know how this medicine affects you. Do not stand or sit up quickly, especially if you are an older patient. This reduces the risk of dizzy or fainting spells. Alcohol may interfere with the effect of this medicine. Avoid alcoholic drinks. Your mouth may get dry. Chewing sugarless gum or sucking hard candy, and drinking plenty of water may help. Contact your doctor if the problem does not go away or is severe. This medicine may cause dry eyes and blurred vision. If you wear contact lenses you may feel some discomfort. Lubricating drops may help. See your eye doctor if the problem does not go away or is severe. If you are receiving skin tests for allergies, tell your doctor you are using this medicine. You have been given the following additional information: Allergic Reaction, Drug Ranitidine Hydrochloride Oral tablet Methylprednisolone Oral tablet Hydroxyzine Pamoate Oral capsule (Electronically signed by Zurdo Tracey Dr. 09/02/2016 2:41)
--- NOTE | 2016-09-02 02:49 | ED DISCHARGE INSTRUCTIONS ---
Patient: MICHAELA SHARMA General Instructions [facility] VisitID: [id number] [place] [address] 30y, M Registration Date/Time: 09/02/2016 Generalized drug rash due to an oral drug (Tramadol). INSTRUCTIONS Your Current Medications: CONTINUE TAKING THE FOLLOWING MEDICATIONS: Acetaminophen Oral. Amoxicillin Oral : put on by dentist on Wednesday08/31/16. Ibuprofen Oral. Prescription Medications: Ranitidine 150 mg: take 1 orally every 12 hours. Dispense thirty (30). No refills. Medrol Dosepak: take according to package directions. Dispense one (1) dosepak. No refill. Substitution is permissible. Vistaril 50 mg: take 1 orally every 6 hours as needed for itching. Dispense thirty (30). No refill. Substitution is permissible. Follow-up: Follow up with your doctor in about two days. Call for an appointment. Screening today revealed the patient's blood pressure to be in the pre-hypertensive range. The patient should follow up with a primary care provider for blood pressure management. ADDITIONAL INFORMATION Drug Reaction: Allergic You are having an allergic reaction to a drug you have taken. This causes an itchy rash and sometimes swelling of various parts of the body. It may also cause trouble swallowing or breathing. The rash may take a few hours or up to two weeks to go away. In the future, remember to tell your doctor about your allergy to this drug so that drugs of this type won't be used again. Home Care: 1) Throw the drug away and do not take it again. The next reaction may be much worse. 2) Avoid tight clothing and anything that heats up your skin (hot showers/baths, direct sunlight) since heat will make itching worse. 3) An ice pack (ice cubes in a plastic bag, wrapped in a towel) will relieve local areas of intense itching and redness. Lanacaine cream or Solarcaine spray (or other product containing "benzocaine") will reduce the itching. 4) Avoid scratching which may worsen the reaction, damage your skin and lead to an infection. 5) Oral Benadryl (diphenhydramine) is an antihistamine available at drug and grocery stores. Unless a prescription antihistamine was given, Benadryl may be used to reduce itching if large areas of the skin are involved. Use lower doses during the daytime and higher doses at bedtime since the drug may make you sleepy. [NOTE: Do not use Benadryl if you have glaucoma or if you are a man with trouble urinating due to an enlarged prostate.] Claritin (loratadine) is an antihistamine that causes less drowsiness and is a good alternative for daytime use. Follow Up with your doctor or this facility in the next two days if your symptoms do not continue to improve. Get Prompt Medical Attention if any of the following occur: -- Wheezing, shortness of breath or difficulty swallowing -- Increased swelling in the face, eyelids, mouth, lips, tongue or throat -- Dizziness, weakness or fainting Ranitidine Hydrochloride Oral tablet What is this medicine? RANITIDINE (ra COMPA quick) is a type of antihistamine that blocks the release of stomach acid. It is used to treat stomach or intestinal ulcers. It can relieve ulcer pain and discomfort, and the heartburn from acid reflux. How should I use this medicine? Take this medicine by mouth with a glass of water. Follow the directions on the prescription label. If you only take this medicine once a day, take it at bedtime. Take your medicine at regular intervals. Do not take your medicine more often than directed. Do not stop taking except on your doctor's advice. Talk to your roll up operator regarding the use of this medicine in children. Special care may be needed. What side effects may I notice from receiving this medicine? Side effects that you should report to your doctor or health career advisor as soon as possible: agitation, nervousness, depression, hallucinations allergic reactions like skin rash, itching or hives, swelling of the face, lips, or tongue breast enlargement in both males and females breathing problems redness, blistering, peeling or loosening of the skin, including inside the mouth unusual bleeding or bruising unusually weak or tired vomiting yellowing of the skin or eyes Side effects that usually do not require medical attention (report to your doctor or health career advisor if they continue or are bothersome): constipation or diarrhea dizziness headache nausea What may interact with this medicine? atazanavir delavirdine gefitinib glipizide ketoconazole midazolam procainamide propantheline triazolam warfarin What if I miss a dose? If you miss a dose, take it as soon as you can. If it is almost time for your next dose, take only that dose. Do not take double or extra doses. Where should I keep my medicine? Keep out of the reach of children. Store at room temperature between 15 and 30 degrees C (59 and 86 degrees F). Protect from light and moisture. Keep container tightly closed. Throw away any unused medicine after the expiration date. What should I tell my health care provider before I take this medicine? They need to know if you have any of these conditions: kidney disease liver disease porphyria an unusual or allergic reaction to ranitidine, other medicines, foods, dyes, or preservatives or trying to get breast-feeding What should I watch for while using this medicine? Tell your doctor or health career advisor if your condition does not start to get better or gets worse. You may need to take this medicine for several days as prescribed before your symptoms get better. Finish the full course of tablets prescribed, even if you feel better. Do not smoke cigarettes or drink alcohol. These increase irritation in your stomach and can lengthen the time it will take for ulcers to heal. Cigarettes and alcohol can also make acid reflux or heartburn worse. If you get black, tarry stools or vomit up what looks like coffee grounds, call your doctor or health career advisor at once. You may have a bleeding ulcer. Methylprednisolone Oral tablet What is this medicine? METHYLPREDNISOLONE (meth ill pred NISS oh lone) is a corticosteroid. It is commonly used to treat inflammation of the skin, joints, lungs, and other organs. Common conditions treated include asthma, allergies, and arthritis. It is also used for other conditions, such as blood disorders and diseases of the adrenal glands. How should I use this medicine? Take this medicine by mouth with a drink of water. Follow the directions on the prescription label. Take it with food or milk to avoid stomach upset. If you are taking this medicine once a day, take it in the morning. Do not take more medicine than you are told to take. Do not suddenly stop taking your medicine because you may develop a severe reaction. Your doctor will tell you how much medicine to take. If your doctor wants you to stop the medicine, the dose may be slowly lowered over time to avoid any side effects. Talk to your roll up operator regarding the use of this medicine in children. Special care may be needed. What side effects may I notice from receiving this medicine? Side effects that you should report to your doctor or health career advisor as soon as possible: allergic reactions like skin rash, itching or hives, swelling of the face, lips, or tongue eye pain, decreased or blurred vision, or bulging eyes fever, sore throat, sneezing, cough, or other signs of infection, wounds that will not heal increased thirst mental depression, mood swings, mistaken feelings of self importance or of being mistreated pain in hips, back, ribs, arms, shoulders, or legs swelling of the ankles, feet, hands trouble passing urine or change in the amount of urine Side effects that usually do not require medical attention (report to your doctor or health career advisor if they continue or are bothersome): confusion, excitement, restlessness headache nausea, vomiting skin problems, acne, thin and shiny skin weight gain What may interact with this medicine? Do not take this medicine with any of the following medications: mifepristone This medicine may also interact with the following medications: tacrolimus vaccines warfarin What if I miss a dose? If you miss a dose, take it as soon as you can. If it is almost time for your next dose, talk to your doctor or health career advisor. You may need to miss a dose or take an extra dose. Do not take double or extra doses without advice. Where should I keep my medicine? Keep out of the reach of children. Store at room temperature between 20 and 25 degrees C (68 and 77 degrees F). Throw away any unused medicine after the expiration date. What should I tell my health care provider before I take this medicine? They need to know if you have any of these conditions: Asha's syndrome diabetes glaucoma heart problems or disease high blood pressure infection such as herpes, measles, tuberculosis, or chickenpox kidney disease liver disease mental problems myasthenia gravis osteoporosis seizures stomach ulcer or intestine disease including colitis and diverticulitis thyroid problem an unusual or allergic reaction to lactose, methylprednisolone, other medicines, foods, dyes, or preservatives or trying to get breast-feeding What should I watch for while using this medicine? Visit your doctor or health career advisor for regular checks on your progress. If you are taking this medicine for a long time, carry an identification card with your name and address, the type and dose of your medicine, and your doctor's name and address. The medicine may increase your risk of getting an infection. Stay away from people who are sick. Tell your doctor or health career advisor if you are around anyone with measles or chickenpox. If you are going to have surgery, tell your doctor or health career advisor that you have taken this medicine within the last twelve months. Ask your doctor or health career advisor about your diet. You may need to lower the amount of salt you eat. The medicine can increase your blood sugar. If you are a diabetic check with your doctor if you need help adjusting the dose of your diabetic medicine. Hydroxyzine Pamoate Oral capsule What is this medicine? HYDROXYZINE (nena DROX i zeen) is an antihistamine. This medicine is used to treat allergy symptoms. It is also used to treat anxiety and tension. This medicine can be used with other medicines to induce sleep before surgery. How should I use this medicine? Take this medicine by mouth with a full glass of water. Follow the directions on the prescription label. You may take this medicine with food or on an empty stomach. Take your medicine at regular intervals. Do not take your medicine more often than directed. Talk to your roll up operator regarding the use of this medicine in children. Special care may be needed. While this drug may be prescribed for children as young as 6 years of age for selected conditions, precautions do apply. Patients over 65 years old may have a stronger reaction and need a smaller dose. What side effects may I notice from receiving this medicine? Side effects that you should report to your doctor or health career advisor as soon as possible: fast or irregular heartbeat difficulty passing urine seizures slurred speech or confusion tremor Side effects that usually do not require medical attention (report to your doctor or health career advisor if they continue or are bothersome): constipation drowsiness fatigue headache stomach upset What may interact with this medicine? alcohol barbiturate medicines for sleep or seizures medicines for colds, allergies medicines for depression, anxiety, or emotional disturbances medicines for pain medicines for sleep muscle relaxants What if I miss a dose? If you miss a dose, take it as soon as you can. If it is almost time for your next dose, take only that dose. Do not take double or extra doses. Where should I keep my medicine? Keep out of the reach of children. Store at room temperature between 15 and 30 degrees C (59 and 86 degrees F). Keep container tightly closed. Throw away any unused medicine after the expiration date. What should I tell my health care provider before I take this medicine? They need to know if you have any of these conditions: any chronic illness difficulty passing urine glaucoma heart disease kidney disease liver disease lung disease an unusual or allergic reaction to hydroxyzine, cetirizine, other medicines, foods, dyes, or preservatives or trying to get breast-feeding What should I watch for while using this medicine? Tell your doctor or health career advisor if your symptoms do not improve. You may get drowsy or dizzy. Do not drive, use machinery, or do anything that needs mental alertness until you know how this medicine affects you. Do not stand or sit up quickly, especially if you are an older patient. This reduces the risk of dizzy or fainting spells. Alcohol may interfere with the effect of this medicine. Avoid alcoholic drinks. Your mouth may get dry. Chewing sugarless gum or sucking hard candy, and drinking plenty of water may help. Contact your doctor if the problem does not go away or is severe. This medicine may cause dry eyes and blurred vision. If you wear contact lenses you may feel some discomfort. Lubricating drops may help. See your eye doctor if the problem does not go away or is severe. If you are receiving skin tests for allergies, tell your doctor you are using this medicine. You have been given the following additional information: Allergic Reaction, Drug Ranitidine Hydrochloride Oral tablet Methylprednisolone Oral tablet Hydroxyzine Pamoate Oral capsule (Electronically signed by Zurdo Tracey Dr. 09/02/2016 2:41)
--- NOTE | 2016-09-02 02:50 | ED MED RECONCILIATION SUMMARY ---
Patient: MICHAELA SHARMA Medication Reconciliation Report [facility] VisitID: [id number] [place] [address] 30y, M Registration Date/Time: 09/02/2016 Weight: 90.7 kg Height/Length: 70 in. BMI: 28.7 ALLERGIES: Codeine, Tramadol The patient's Home Medications are listed below: CONTINUE TAKING THE FOLLOWING MEDICATIONS: Acetaminophen Oral Amoxicillin Oral, put on by dentist on Wednesday08/31/16 Ibuprofen Oral The source(s) of the original Home Medication information: patient The following Medications were given to the patient in the Emergency Department: Benadryl [PO] PO 50 mg, administered: 09/02/2016 1:45:00 AM Famotidine [PO] PO 40 mg, administered: 09/02/2016 1:45:00 AM Prednisone [PO] PO 40 mg, administered: 09/02/2016 1:45:00 AM The following Medications were prescribed to the patient: Ranitidine 150 mg: take 1 orally every 12 hours. Dispense thirty (30). No refills. -- Zurdo Tracey Dr. Medrol Dosepak: take according to package directions. Dispense one (1) dosepak. No refill. Substitution is permissible. -- Zurdo Tracey Dr. Vistaril 50 mg: take 1 orally every 6 hours as needed for itching. Dispense thirty (30). No refill. Substitution is permissible. -- Zurdo Tracey Dr.
--- NOTE | 2016-09-02 02:50 | ED MAR SUMMARY ---
..... Medication Administration Record [facility] [address] [place] [address] Patient: MICHAELA SHARMA Visit ID: [id number] 30y, M Weight: 90.7 kg Height/Length: 70 in BMI: 28.7 ALLERGIES: Codeine, Tramadol Given 01:09/02/2016 Magy Dukes R.N. Medication Administered: BENADRYL [PO] (DIPHENHYDRAMINE HCL), Dose: 50 mg Capsules PO. Medication Ordered: Benadryl PO 50 mg (NOW). Given 09/02/2016 Magy Dukes R.N. Medication Administered: FAMOTIDINE [PO], Dose: 40 mg Tablets PO. Medication Ordered: Famotidine PO 40 mg (NOW). Given :09/02/2016 Magy Dukes R.N. Medication Administered: PREDNISONE [PO], Dose: 40 mg Tablets PO. Medication Ordered: Prednisone PO 40 mg (NOW).
--- NOTE | 2016-09-02 02:50 | ED MED RECONCILIATION SUMMARY ---
Patient: MICHAELA SHARMA Medication Reconciliation Report [facility] VisitID: [id number] [place] [address] 30y, M Registration Date/Time: 09/02/2016 Weight: 90.7 kg Height/Length: 70 in. BMI: 28.7 ALLERGIES: Codeine, Tramadol The patient's Home Medications are listed below: CONTINUE TAKING THE FOLLOWING MEDICATIONS: Acetaminophen Oral Amoxicillin Oral, put on by dentist on Wednesday08/31/16 Ibuprofen Oral The source(s) of the original Home Medication information: patient The following Medications were given to the patient in the Emergency Department: Benadryl [PO] PO 50 mg, administered: 09/02/2016 1:45:00 AM Famotidine [PO] PO 40 mg, administered: 09/02/2016 1:45:00 AM Prednisone [PO] PO 40 mg, administered: 09/02/2016 1:45:00 AM The following Medications were prescribed to the patient: Ranitidine 150 mg: take 1 orally every 12 hours. Dispense thirty (30). No refills. -- Zurdo Tracey Dr. Medrol Dosepak: take according to package directions. Dispense one (1) dosepak. No refill. Substitution is permissible. -- Zurdo Tracey Dr. Vistaril 50 mg: take 1 orally every 6 hours as needed for itching. Dispense thirty (30). No refill. Substitution is permissible. -- Zurdo Tracey Dr.
--- NOTE | 2016-09-02 02:50 | ED MAR SUMMARY ---
..... Medication Administration Record [facility] [address] [place] [address] Patient: MICHAELA SHARMA Visit ID: [id number] 30y, M Weight: 90.7 kg Height/Length: 70 in BMI: 28.7 ALLERGIES: Codeine, Tramadol Given 01:09/02/2016 Magy Dukes R.N. Medication Administered: BENADRYL [PO] (DIPHENHYDRAMINE HCL), Dose: 50 mg Capsules PO. Medication Ordered: Benadryl PO 50 mg (NOW). Given 09/02/2016 Magy Dukes R.N. Medication Administered: FAMOTIDINE [PO], Dose: 40 mg Tablets PO. Medication Ordered: Famotidine PO 40 mg (NOW). Given :09/02/2016 Magy Dukes R.N. Medication Administered: PREDNISONE [PO], Dose: 40 mg Tablets PO. Medication Ordered: Prednisone PO 40 mg (NOW).
== END 2016-09-02 02:49 | disposition home or self-care (01) ==
LOC: ED SRH 01:08
DX: L27.0 Generalized skin eruption due to drugs and medicaments taken internally (principal); T40.4X5A Adverse effect of other synthetic narcotics, initial encounter; F17.210 Nicotine dependence, cigarettes, uncomplicated; Z88.5 Allergy status to narcotic agent

== ENCOUNTER 2016-09-05 20:52 | Emergency (ER) | payer OTHER ==
--- NOTE | 2016-09-05 22:13 | ED CLINICAL REPORT ---
Clinical Report - Physicians/Mid Levels [facility] [address] [place] [address] 09/05/2016 20:53 Patient: MICHAELA SHARMA Time Seen: 20:56. Arrived- By private vehicle. Historian- patient. CPT: ER phys charges level 3 (#[id number]). HISTORY OF PRESENT ILLNESS Chief Complaint: Injury to the right foot and right ankle. The injury happened today. Occurred at home. ( Pt states that he was helping a friend move a dresser and it came down some stairs onto his ankle.). This occurred (about 2 hours ago). Occurred at friend's house. Mechanism of injury: sustained a twisting injury and a blow. He has had trouble walking.). The patient sustained a direct blow and crush injury. Patient is experiencing moderate pain. No other injury. REVIEW OF SYSTEMS The patient complains of pain on weight bearing. He has had swelling. No tingling, weakness, numbness, suspected foreign body or skin laceration. All systems otherwise negative, except as recorded above. PAST HISTORY See nurses notes. Tetanus immunization status is up-to-date. Medications: None. Allergies: Codeine. (intolerance - vomiting) Tramadol. Severe(itching, rash) (red rash to face, neck, and back). SOCIAL HISTORY Light tobacco smoker (cigarette)- less than 1/2 a pack per day. No alcohol use or drug use. ADDITIONAL NOTES The nursing notes have been reviewed. PHYSICAL EXAM Vital Signs: 09/05/2016 20:57 BP: 130/99. HR: 111. RR: 16. O2 saturation: 99%. Temp: 99.9 F. Pain level now: 910. Appearance: Alert. Patient in mild distress. Neck: Normal inspection. C-spine non-tender. CVS: Normal heart rate and rhythm. Respiratory: No respiratory distress. Chest nontender. Abdomen: Nontender. Back: No tenderness. Skin: Skin intact. Extremities: Right lateral ankle: moderate tenderness and swelling of the lateral ligaments and lateral malleolus. Limited ROM secondary to pain. Neurovascular intact distally. No ligamentous laxity present. No joint effusion. No abrasion, ecchymosis or deformity. Right dorsal foot: mild tenderness and swelling and small ecchymosis of the proximal aspect of the dorsal foot. Neurovascular intact distally. No ligamentous laxity present. No laceration or abrasion. No limitation in movement. Extremities otherwise negative. Gait: Gait not tested due to pain. Neuro, Vascular and Tendons: Vascular status intact. Sensation intact. Motor intact. Neuro: Oriented X 3. No motor deficit. No sensory deficit. LABS, X-RAYS, AND EKG X-Rays: Right ankle negative. Right foot negative. PROGRESS AND PROCEDURES Course of Care: Melo wrap and crutches. Patient/family counseled. Disposition: Discharged. Condition: stable. CLINICAL IMPRESSION Contusion to the right ankle and right foot. INSTRUCTIONS Apply ice for 15-20 minutes three times a day for one days. Use crutches until better. Wear elastic wrap (Melo wrap) as directed until better. You may walk and bear weight as tolerated. Prescription Medications: Hydrocodone/APAP 5mg / 325mg: take 1-2 orally every 6 hours as needed for pain. Dispense ten (10). No refill. Ibuprofen 600mg tablets: take 1 tablet orally every 8 hours as needed for pain. Dispense thirty (30). No refills. Understanding of the discharge instructions verbalized by patient. Follow-up with: [facility], , , [address], , [place], [address] Follow up in one week. Call for an appointment. (Electronically signed by Chuy Kwong MD 09/09/2016 23:58)
--- NOTE | 2016-09-05 22:13 | ED ORDER SUMMARY ---
..... Patient: MICHAELA SHARMA OrderSheet [facility] VisitID: [id number] [address] [place] [address] 30y, M Registration Date/Time: 09/05/2016 ORDER SHEET Weight: 90.7 kg Allergies: Codeine, Tramadol GENERAL ORDERS: Ankle 3 or 4V Right Urgent (20:57 09/05/2016 Anuj Morgan verbal order read back to Sheela HANDLEY) (Ack 20:58 IJurca ER Tech1) (21:21 Mallory) Foot 3V Right Urgent (21:24 09/05/2016 Sheela HANDLEY) (Ack 21:26 IJurca ER Tech1) (21:42 RFay) Melo Wrap (22:13 09/05/2016 Sheela HANDLEY) (Ack 22:19 IJurca ER Tech1) (22:59 IJurca ER Tech1) Crutches (22:13 09/05/2016 Sheela HANDLEY) (Ack 22:19 IJurca ER Tech1) (22:59 IJurca ER Tech1) MEDICATION ORDERS: IV FLUIDS: ORDER SHEET NOTES: [Electronically signed by Oscar Harris R.N. (01:49 09/06/2016)] [Electronically signed by Chuy Kwong MD (23:58 09/09/2016)] [Electronically locked/signed by Oscar Harris R.N. (01:49 09/06/2016)]
--- NOTE | 2016-09-05 22:13 | ED ORDER SUMMARY ---
..... Patient: MICHAELA SHARMA OrderSheet [facility] VisitID: [id number] [address] [place] [address] 30y, M Registration Date/Time: 09/05/2016 ORDER SHEET Weight: 90.7 kg Allergies: Codeine, Tramadol GENERAL ORDERS: Ankle 3 or 4V Right Urgent (20:57 09/05/2016 Anuj Morgan verbal order read back to Sheela HANDLEY) (Ack 20:58 IJurca ER Tech1) (21:21 Mallory) Foot 3V Right Urgent (21:24 09/05/2016 Sheela HANDLEY) (Ack 21:26 IJurca ER Tech1) (21:42 RFay) Melo Wrap (22:13 09/05/2016 Sheela HANDLEY) (Ack 22:19 IJurca ER Tech1) (22:59 IJurca ER Tech1) Crutches (22:13 09/05/2016 Sheela HANDLEY) (Ack 22:19 IJurca ER Tech1) (22:59 IJurca ER Tech1) MEDICATION ORDERS: IV FLUIDS: ORDER SHEET NOTES: [Electronically signed by Oscar Harris R.N. (01:49 09/06/2016)] [Electronically signed by Chuy Kwong MD (23:58 09/09/2016)] [Electronically locked/signed by Oscar Harris R.N. (01:49 09/06/2016)]
--- NOTE | 2016-09-05 22:13 | ED NURSING NOTES ---
Clinical Report - Nurses [facility] [address] [place] [place] [address] 09/05/2016 20:53 Patient: MICHAELA SHARMA TRIAGE Triage time 20:57 Sep 05 2016. Acuity: LEVEL 3. Chief Complaint: INJURY TO RIGHT ANKLE. Alert. RAFA COMA SCORE: [place] Coma Scale: 15- eyes open spontaneously (4); best verbal response- oriented x 4 (5); best motor response- obeys commands (6). --21:09 Oscar Harris R.N. 20:57 09/05/16. BP: 130/99. HR: 111. RR: 16. O2 saturation: 99%. Temp: 99.9 F (oral). Pain level now: 10. Additional comments: R Ankle. --21:09 Oscar Harris R.N. Weight: 90.7 kg. Height/Length: 70 inches Per Patient. BMI: 28.7. --21:00 Oscar Harris R.N. Medications None. --21:00 Oscar Harris R.N. Allergies Codeine. (intolerance - vomiting) Tramadol. Severe(itching, rash) (red rash to face, neck, and back) --21:00 Oscar Harris R.N. History Arrived by private vehicle. Historian: patient. Unaccompanied. Primary physician (none). ( (R) Ankle Pain. Pt states that he was helping a friend move a dresser and it came down some stairs onto his ankle.). This occurred (about 2 hours ago). Occurred at friend's house. Mechanism of injury: sustained a twisting injury and a blow. He has had trouble walking. 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 PAST MEDICAL HX: Tetanus status: unknown. Immunizations: status is unknown. SOCIAL HX: Light tobacco smoker (cigarette)- less than 1/2 a pack per day. No alcohol use or drug use. No infectious disease exposure. ABUSE ASSESSMENT: No report of abuse. FALL RISK ASSESSMENT: Fall risk assessment completed. No fall risk identified. NUTRITIONAL RISK ASSESSMENT: The nutritional risk assessment revealed no deficiencies. FUNCTIONAL ASSESSMENT: Functional assessment: no impairments noted. LEARNING NEEDS ASSESSMENT: The learning needs assessment revealed no barriers. SKIN INTEGRITY ASSESSMENT: Skin integrity risk assessment completed. No skin integrity risk identified. --21: Oscar Harris R.N. PROBLEMS: Drug Rash. Dental Pain. Dental Caries. Constipation. UTI - Urinary Tract Infection. Abdominal Pain. --21: Oscar Harris R.N. ADDITIONAL SURGERIES: Dental Surgery. --21:02 Oscar Harris R.N. Interventions ID and allergy band on patient. To treatment room. --21: Oscar Harris R.N. PHYSICAL ASSESSMENT Ambulatory to room. GENERAL / NEURO / PSYCH: Oriented X 4. Appears in pain. EXTREMITIES: Limited ROM present in the right ankle. Capillary refill is less than 2 seconds in the extremities. Neuro-vascular status intact to the extremity. Normal gait. Right ankle: tenderness. SKIN: Skin intact. Skin is warm and dry. --21:10 Oscar Harris R.N. NURSING PROGRESS NOTES Reassurance given. Patient identifiers checked. Call light placed in reach. Side rails up. Bed placed in lowest position. Brakes of bed on. Patient ready for evaluation- chart flagged and ED physician notified. --21:10 Oscar Harris R.N. Patient fit with new crutches. ( 2240: KASSIDY wrapped on R ankle). --22:51 Halima Tang 22:00 09/05/16. BP: 122/85. HR: 109. RR: 16. O2 saturation: 97%. Pain level now: 09/28. --01:49 Oscar Harris R.N. DISPOSITION / DISCHARGE 23:50 09/05/16. BP: 124/78. HR: 103. RR: 16. O2 saturation: 97% on room air. Temp: 99.6 F (oral). Pain level now: 08/28. --01:40 Oscar Harris R.N. Departure time: 235. --01:40 Oscar Harris R.N. 23:55. Condition at departure: improved. No learning barriers present. Discharge instructions provided and reviewed with the patient. Reviewed medication(s) (prescription given to pt). Reviewed crutch walking instructions. Reviewed referral to family practice for followup. Work note given. Patient verbalized understanding. Written instructions provided in Welsh. The patient was discharged by the physician. He was discharged home and unaccompanied at time of discharge. He left the Emergency Department ambulatory and via private vehicle. Patient driving. --01:44 Oscar Harris R.N. Locked/Released at 09/06/2016 1:49 by Oscar Harris R.N.
--- NOTE | 2016-09-05 22:13 | ED CLINICAL REPORT ---
Clinical Report - Physicians/Mid Levels [facility] [address] [place] [address] 09/05/2016 20:53 Patient: MICHAELA SHARMA Time Seen: 20:56. Arrived- By private vehicle. Historian- patient. CPT: ER phys charges level 3 (#416119). HISTORY OF PRESENT ILLNESS Chief Complaint: Injury to the right foot and right ankle. The injury happened today. Occurred at home. ( Pt states that he was helping a friend move a dresser and it came down some stairs onto his ankle.). This occurred (about 2 hours ago). Occurred at friend's house. Mechanism of injury: sustained a twisting injury and a blow. He has had trouble walking.). The patient sustained a direct blow and crush injury. Patient is experiencing moderate pain. No other injury. REVIEW OF SYSTEMS The patient complains of pain on weight bearing. He has had swelling. No tingling, weakness, numbness, suspected foreign body or skin laceration. All systems otherwise negative, except as recorded above. PAST HISTORY See nurses notes. Tetanus immunization status is up-to-date. Medications: None. Allergies: Codeine. (intolerance - vomiting) Tramadol. Severe(itching, rash) (red rash to face, neck, and back). SOCIAL HISTORY Light tobacco smoker (cigarette)- less than 1/2 a pack per day. No alcohol use or drug use. ADDITIONAL NOTES The nursing notes have been reviewed. PHYSICAL EXAM Vital Signs: 09/05/2016 20:57 BP: 130/99. HR: 111. RR: 16. O2 saturation: 99%. Temp: 99.9 F. Pain level now: 910. Appearance: Alert. Patient in mild distress. Neck: Normal inspection. C-spine non-tender. CVS: Normal heart rate and rhythm. Respiratory: No respiratory distress. Chest nontender. Abdomen: Nontender. Back: No tenderness. Skin: Skin intact. Extremities: Right lateral ankle: moderate tenderness and swelling of the lateral ligaments and lateral malleolus. Limited ROM secondary to pain. Neurovascular intact distally. No ligamentous laxity present. No joint effusion. No abrasion, ecchymosis or deformity. Right dorsal foot: mild tenderness and swelling and small ecchymosis of the proximal aspect of the dorsal foot. Neurovascular intact distally. No ligamentous laxity present. No laceration or abrasion. No limitation in movement. Extremities otherwise negative. Gait: Gait not tested due to pain. Neuro, Vascular and Tendons: Vascular status intact. Sensation intact. Motor intact. Neuro: Oriented X 3. No motor deficit. No sensory deficit. LABS, X-RAYS, AND EKG X-Rays: Right ankle negative. Right foot negative. PROGRESS AND PROCEDURES Course of Care: Melo wrap and crutches. Patient/family counseled. Disposition: Discharged. Condition: stable. CLINICAL IMPRESSION Contusion to the right ankle and right foot. INSTRUCTIONS Apply ice for 15-20 minutes three times a day for one days. Use crutches until better. Wear elastic wrap (Melo wrap) as directed until better. You may walk and bear weight as tolerated. Prescription Medications: Hydrocodone/APAP 5mg / 325mg: take 1-2 orally every 6 hours as needed for pain. Dispense ten (10). No refill. Ibuprofen 600mg tablets: take 1 tablet orally every 8 hours as needed for pain. Dispense thirty (30). No refills. Understanding of the discharge instructions verbalized by patient. Follow-up with: [facility], , , [address], , [place], [id number] Follow up in one week. Call for an appointment. (Electronically signed by Chuy Kwong MD 09/09/2016 23:58)
--- NOTE | 2016-09-05 22:13 | ED NURSING NOTES ---
Clinical Report - Nurses [facility] [address] [place] [address] 09/05/2016 20:53 Patient: MICHAELA SHARMA TRIAGE Triage time 20:57 Sep 05 2016. Acuity: LEVEL 3. Chief Complaint: INJURY TO RIGHT ANKLE. Alert. RAFA COMA SCORE: [place] Coma Scale: 15- eyes open spontaneously (4); best verbal response- oriented x 4 (5); best motor response- obeys commands (6). --21:09 Oscar Harris R.N. 20:57 09/05/16. BP: 130/99. HR: 111. RR: 16. O2 saturation: 99%. Temp: 99.9 F (oral). Pain level now: 10. Additional comments: R Ankle. --21:09 Oscar Harris R.N. Weight: 90.7 kg. Height/Length: 70 inches Per Patient. BMI: 28.7. --21:00 Oscar Harris R.N. Medications None. --21:00 Oscar Harris R.N. Allergies Codeine. (intolerance - vomiting) Tramadol. Severe(itching, rash) (red rash to face, neck, and back) --21:00 Oscar Harris R.N. History Arrived by private vehicle. Historian: patient. Unaccompanied. Primary physician (none). ( (R) Ankle Pain. Pt states that he was helping a friend move a dresser and it came down some stairs onto his ankle.). This occurred (about 2 hours ago). Occurred at friend's house. Mechanism of injury: sustained a twisting injury and a blow. He has had trouble walking. 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 PAST MEDICAL HX: Tetanus status: unknown. Immunizations: status is unknown. SOCIAL HX: Light tobacco smoker (cigarette)- less than 1/2 a pack per day. No alcohol use or drug use. No infectious disease exposure. ABUSE ASSESSMENT: No report of abuse. FALL RISK ASSESSMENT: Fall risk assessment completed. No fall risk identified. NUTRITIONAL RISK ASSESSMENT: The nutritional risk assessment revealed no deficiencies. FUNCTIONAL ASSESSMENT: Functional assessment: no impairments noted. LEARNING NEEDS ASSESSMENT: The learning needs assessment revealed no barriers. SKIN INTEGRITY ASSESSMENT: Skin integrity risk assessment completed. No skin integrity risk identified. --21: Oscar Harris R.N. PROBLEMS: Drug Rash. Dental Pain. Dental Caries. Constipation. UTI - Urinary Tract Infection. Abdominal Pain. --21: Oscar Harris R.N. ADDITIONAL SURGERIES: Dental Surgery. --21:02 Oscar Harris R.N. Interventions ID and allergy band on patient. To treatment room. --21: Oscar Harris R.N. PHYSICAL ASSESSMENT Ambulatory to room. GENERAL / NEURO / PSYCH: Oriented X 4. Appears in pain. EXTREMITIES: Limited ROM present in the right ankle. Capillary refill is less than 2 seconds in the extremities. Neuro-vascular status intact to the extremity. Normal gait. Right ankle: tenderness. SKIN: Skin intact. Skin is warm and dry. --21:10 Oscar Harris R.N. NURSING PROGRESS NOTES Reassurance given. Patient identifiers checked. Call light placed in reach. Side rails up. Bed placed in lowest position. Brakes of bed on. Patient ready for evaluation- chart flagged and ED physician notified. --21:10 Oscar Harris R.N. Patient fit with new crutches. ( 2240: KASSIDY wrapped on R ankle). --22:51 Halima Tang 22:00 09/05/16. BP: 122/85. HR: 109. RR: 16. O2 saturation: 97%. Pain level now: 09/28. --01:49 Oscar Harris R.N. DISPOSITION / DISCHARGE 23:50 09/05/16. BP: 124/78. HR: 103. RR: 16. O2 saturation: 97% on room air. Temp: 99.6 F (oral). Pain level now: 08/28. --01:40 Oscar Harris R.N. Departure time: 235. --01:40 Oscar Harris R.N. 23:55. Condition at departure: improved. No learning barriers present. Discharge instructions provided and reviewed with the patient. Reviewed medication(s) (prescription given to pt). Reviewed crutch walking instructions. Reviewed referral to family practice for followup. Work note given. Patient verbalized understanding. Written instructions provided in Urdu. The patient was discharged by the physician. He was discharged home and unaccompanied at time of discharge. He left the Emergency Department ambulatory and via private vehicle. Patient driving. --01:44 Oscar Harris R.N. Locked/Released at 09/06/2016 1:49 by Oscar Harris R.N.
--- NOTE | 2016-09-05 22:22 | DIAGNOSTIC IMAGING REPORT ---
PROCEDURE: XR ANKLE 3 OR 4 VIEWS - RIGHT INDICATION: TRAUMA/INJURY TECHNIQUE: Four views. COMPARISON: None. FINDINGS: Osseous structures, joint spaces and soft tissues are normal. Ankle mortise is normal. IMPRESSION: 1. Normal right ankle.
--- NOTE | 2016-09-05 22:24 | DIAGNOSTIC IMAGING REPORT ---
PROCEDURE: XR FOOT 3 VIEWS - RIGHT INDICATION: Crush injury, initial encounter. TECHNIQUE: Three views. COMPARISON: None. FINDINGS: Osseous structures, joint spaces and soft tissues are normal. IMPRESSION: 1. Normal right foot.
--- NOTE | 2016-09-09 23:58 | ED MED RECONCILIATION SUMMARY ---
Patient: MICHAELA SHARMA Medication Reconciliation Report [facility] VisitID: [id number] [address] [place] [address] 30y, M Registration Date/Time: 09/05/2016 Weight: 90.7 kg Height/Length: 70 in. BMI: 28.7 ALLERGIES: Codeine, Tramadol The patient's Home Medications are listed below: NONE. The source(s) of the original Home Medication information: Not obtained. The following Medications were given to the patient in the Emergency Department: None. The following Medications were prescribed to the patient: Hydrocodone/APAP 5mg / 325mg: take 1-2 orally every 6 hours as needed for pain. Dispense ten (10). No refill. -- Chuy Kwong MD Ibuprofen 600mg tablets: take 1 tablet orally every 8 hours as needed for pain. Dispense thirty (30). No refills. -- Chuy Kwong MD
--- NOTE | 2016-09-09 23:58 | ED DISCHARGE INSTRUCTIONS ---
Patient: MICHAELA SHARMA General Instructions [facility] VisitID: [id number] [address] [place] [address] 30y, M Registration Date/Time: 09/05/2016 Contusion to the right ankle and right foot. INSTRUCTIONS Apply ice for 15-20 minutes three times a day for one days. Use crutches until better. Wear elastic wrap (Melo wrap) as directed until better. You may walk and bear weight as tolerated. Prescription Medications: Hydrocodone/APAP 5mg / 325mg: take 1-2 orally every 6 hours as needed for pain. Dispense ten (10). No refill. Ibuprofen 600mg tablets: take 1 tablet orally every 8 hours as needed for pain. Dispense thirty (30). No refills. Understanding of the discharge instructions verbalized by patient. Follow-up with: [facility], , , [address], , [facility] [address] Follow up in one week. Call for an appointment. ADDITIONAL INFORMATION Contusion,Soft Tissue You have a CONTUSION, which is a bruise with swelling and some bleeding under the skin. There are no broken bones. This injury takes a few days to a few weeks to heal. Home Care: 1) Keep the injured part elevated to reduce pain and swelling. This is especially important during the first 48 hours. 2) Make an ice pack (ice cubes in a plastic bag, wrapped in a towel) and apply for 20 minutes every 1-2 hours the first day. Continue this 3-4 times a day until the pain and swelling goes away. 3) You may use acetaminophen (Tylenol) or ibuprofen (Motrin, Advil) to control pain, unless another pain medicine was prescribed. [ NOTE : If you have chronic liver or kidney disease or ever had a stomach ulcer or GI bleeding, talk with your doctor before using these medicines.] Follow Up with your doctor or this facility if you are not improving within the next THREE days. [NOTE: If X-rays were taken, they will be reviewed by a radiologist. You will be notified of any new findings that may affect your care.] Get Prompt Medical Attention if any of the following occur: -- Pain or swelling increases -- Injured arm or leg becomes cold, blue, numb or tingly -- Redness, warmth or drainage from the skin Crutch Walking Crutch Adjustment Make sure the crutches you use are adjusted to fit you. When you stand, there should be room to fit 2-3 fingers between the top of the crutch and your armpit. 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 Crutch Walking: Place the crutches forward 12" in front of and 6" to the side of your feet. Lean your weight forward as you push down on the handgrips. Your weight should be on your hands and yourstrong leg, not your armpits . Let your body swing through, landing on the strong leg. Advance the crutches forward again. The crutch and the injured leg should move together. Going Up Steps: ("Up with the good") With both crutches on the same step as your feet, push down on the handgrips. Balancing with very light pressure on the weak leg, let your hands support your weight as you raise your strong leg onto the next higher step. Transfer all your weight to your strong leg (still bent) as you move the crutches up to the next step alongside the strong leg. With your weight evenly balanced on the two crutches and your strong leg, straighten your strong knee as you raise the weak leg up to the next step. Going Down Steps: ("Down with the bad") With both crutches on the same step as your feet, push down on the handgrips. With your weight evenly balanced on the two crutches and your strong leg, bend your strong knee as you lower the weak leg down to the next step. Let your strong leg support you (still bent) as you move the crutches down alongside the weak leg. Transfer your weight to your hands, balancing with very light pressure on the weak leg as you lower your strong leg alongside your weak leg. Melo Wrap An "Melo Bandage" refers to any elastic bandage wrap (2-6" wide). This is used to apply support and compression to an arm or leg. It will help prevent or reduce swelling also. When applying the bandage, it should not be stretched too tightly. A tight Melo Wrap will reduce circulation and cause tingling or numbness in the hand or foot. It may increase the pain under the bandage. If you get these symptoms, remove the wrap and rest the limb. Symptoms should go away within 1-2 hours. Once symptoms go away, reapply the bandage with less stretch. If symptoms do not go away after 1-2 hours with the bandage off, call your doctor or return to this facility promptly. Hydrocodone Bitartrate, Acetaminophen Oral tablet What is this medicine? ACETAMINOPHEN; HYDROCODONE (a set a KATHLEEN yaniv fen; nena droe KOE done) is a pain reliever. It is used to treat mild to moderate pain. How should I use this medicine? Take this medicine by mouth. Swallow it with a full glass of water. Follow the directions on the prescription label. If the medicine upsets your stomach, take the medicine with food or milk. Do not take more than you are told to take. Talk to your dressed poultry grader regarding the use of this medicine in children. This medicine is not approved for use in children. What side effects may I notice from receiving this medicine? Side effects that you should report to your doctor or health menagerie caretaker as soon as possible: allergic reactions like skin rash, itching or hives, swelling of the face, lips, or tongue breathing problems confusion feeling faint or lightheaded, falls stomach pain yellowing of the eyes or skin Side effects that usually do not require medical attention (report to your doctor or health menagerie caretaker if they continue or are bothersome): nausea, vomiting stomach upset What may interact with this medicine? alcohol antihistamines isoniazid medicines for depression, anxiety, or psychotic disturbances medicines for sleep muscle relaxants naltrexone narcotic medicines (opiates) for pain phenobarbital ritonavir tramadol What if I miss a dose? If you miss a dose, take it as soon as you can. If it is almost time for your next dose, take only that dose. Do not take double or extra doses. Where should I keep my medicine? Keep out of the reach of children. This medicine can be abused. Keep your medicine in a safe place to protect it from theft. Do not share this medicine with anyone. Selling or giving away this medicine is dangerous and against the law. Store at room temperature between 15 and 30 degrees C (59 and 86 degrees F). Protect from light. Keep container tightly closed. Throw away any unused medicine after the expiration date. Discard unused medicine and used packaging carefully. Pets and children can be harmed if they find used or lost packages. What should I tell my health care provider before I take this medicine? They need to know if you have any of these conditions: brain tumor Crohn's disease, inflammatory bowel disease, or ulcerative colitis drink more than 3 alcohol-containing drinks per day drug abuse or addiction head injury heart or circulation problems kidney disease or problems going to the bathroom liver disease lung disease, asthma, or breathing problems an unusual or allergic reaction to acetaminophen, hydrocodone, other opioid analgesics, other medicines, foods, dyes, or preservatives or trying to get breast-feeding What should I watch for while using this medicine? Tell your doctor or health menagerie caretaker if your pain does not go away, if it gets worse, or if you have new or a different type of pain. You may develop tolerance to the medicine. Tolerance means that you will need a higher dose of the medicine for pain relief. Tolerance is normal and is expected if you take the medicine for a long time. Do not suddenly stop taking your medicine because you may develop a severe reaction. Your body becomes used to the medicine. This does NOT mean you are addicted. Addiction is a behavior related to getting and using a drug for a non-medical reason. If you have pain, you have a medical reason to take pain medicine. Your doctor will tell you how much medicine to take. If your doctor wants you to stop the medicine, the dose will be slowly lowered over time to avoid any side effects. You may get drowsy or dizzy when you first start taking the medicine or change doses. Do not drive, use machinery, or do anything that may be dangerous until you know how the medicine affects you. Stand or sit up slowly. There are different types of narcotic medicines (opiates) for pain. If you take more than one type at the same time, you may have more side effects. Give your health care provider a list of all medicines you use. Your doctor will tell you how much medicine to take. Do not take more medicine than directed. Call emergency for help if you have problems breathing. The medicine will cause constipation. Try to have a bowel movement at least every 2 to 3 days. If you do not have a bowel movement for 3 days, call your doctor or health menagerie caretaker. Too much acetaminophen can be very dangerous. Do not take Tylenol (acetaminophen) or medicines that contain acetaminophen with this medicine. Many non-prescription medicines contain acetaminophen. Always read the labels carefully. You have been given the following additional information: Contusion, Soft Tissue Crutch Walking Melo Wrap Hydrocodone Bitartrate, Acetaminophen Oral tablet You may walk and bear weight as tolerated. (Electronically signed by Chuy Kwong MD 09/09/2016 23:58)
--- NOTE | 2016-09-09 23:58 | ED MAR SUMMARY ---
..... Medication Administration Record [facility] [address] [place], [place] [id number] Patient: MICHAELA SHARMA Visit ID: [id number] 30y, M Weight: 90.7 kg Height/Length: 70 in BMI: 28.7 ALLERGIES: Codeine, Tramadol
--- NOTE | 2016-09-09 23:58 | ED MAR SUMMARY ---
..... Medication Administration Record [facility] [address] [place] [id number] Patient: MICHAELA SHARMA Visit ID: [id number] 30y, M Weight: 90.7 kg Height/Length: 70 in BMI: 28.7 ALLERGIES: Codeine, Tramadol
--- NOTE | 2016-09-09 23:58 | ED MED RECONCILIATION SUMMARY ---
Patient: MICHAELA SHARMA Medication Reconciliation Report [facility] VisitID: [id number] [address] [place] [address] 30y, M Registration Date/Time: 09/05/2016 Weight: 90.7 kg Height/Length: 70 in. BMI: 28.7 ALLERGIES: Codeine, Tramadol The patient's Home Medications are listed below: NONE. The source(s) of the original Home Medication information: Not obtained. The following Medications were given to the patient in the Emergency Department: None. The following Medications were prescribed to the patient: Hydrocodone/APAP 5mg / 325mg: take 1-2 orally every 6 hours as needed for pain. Dispense ten (10). No refill. -- Chuy Kwong MD Ibuprofen 600mg tablets: take 1 tablet orally every 8 hours as needed for pain. Dispense thirty (30). No refills. -- Chuy Kwong MD
--- NOTE | 2016-09-09 23:58 | ED DISCHARGE INSTRUCTIONS ---
Patient: MICHAELA SHARMA General Instructions [facility] VisitID: [id number] [address] [place] [address] 30y, M Registration Date/Time: 09/05/2016 Contusion to the right ankle and right foot. INSTRUCTIONS Apply ice for 15-20 minutes three times a day for one days. Use crutches until better. Wear elastic wrap (Melo wrap) as directed until better. You may walk and bear weight as tolerated. Prescription Medications: Hydrocodone/APAP 5mg / 325mg: take 1-2 orally every 6 hours as needed for pain. Dispense ten (10). No refill. Ibuprofen 600mg tablets: take 1 tablet orally every 8 hours as needed for pain. Dispense thirty (30). No refills. Understanding of the discharge instructions verbalized by patient. Follow-up with: [facility], , , [address], , [facility] [address] Follow up in one week. Call for an appointment. ADDITIONAL INFORMATION Contusion,Soft Tissue You have a CONTUSION, which is a bruise with swelling and some bleeding under the skin. There are no broken bones. This injury takes a few days to a few weeks to heal. Home Care: 1) Keep the injured part elevated to reduce pain and swelling. This is especially important during the first 48 hours. 2) Make an ice pack (ice cubes in a plastic bag, wrapped in a towel) and apply for 20 minutes every 1-2 hours the first day. Continue this 3-4 times a day until the pain and swelling goes away. 3) You may use acetaminophen (Tylenol) or ibuprofen (Motrin, Advil) to control pain, unless another pain medicine was prescribed. [ NOTE : If you have chronic liver or kidney disease or ever had a stomach ulcer or GI bleeding, talk with your doctor before using these medicines.] Follow Up with your doctor or this facility if you are not improving within the next THREE days. [NOTE: If X-rays were taken, they will be reviewed by a radiologist. You will be notified of any new findings that may affect your care.] Get Prompt Medical Attention if any of the following occur: -- Pain or swelling increases -- Injured arm or leg becomes cold, blue, numb or tingly -- Redness, warmth or drainage from the skin Crutch Walking Crutch Adjustment Make sure the crutches you use are adjusted to fit you. When you stand, there should be room to fit 2-3 fingers between the top of the crutch and your armpit. Your elbow should be slightly bent when holding the hand title i assistant. Crutch Walking: Place the crutches forward 12" in front of and 6" to the side of your feet. Lean your weight forward as you push down on the handgrips. Your weight should be on your hands and yourstrong leg, not your armpits . Let your body swing through, landing on the strong leg. Advance the crutches forward again. The crutch and the injured leg should move together. Going Up Steps: ("Up with the good") With both crutches on the same step as your feet, push down on the handgrips. Balancing with very light pressure on the weak leg, let your hands support your weight as you raise your strong leg onto the next higher step. Transfer all your weight to your strong leg (still bent) as you move the crutches up to the next step alongside the strong leg. With your weight evenly balanced on the two crutches and your strong leg, straighten your strong knee as you raise the weak leg up to the next step. Going Down Steps: ("Down with the bad") With both crutches on the same step as your feet, push down on the handgrips. With your weight evenly balanced on the two crutches and your strong leg, bend your strong knee as you lower the weak leg down to the next step. Let your strong leg support you (still bent) as you move the crutches down alongside the weak leg. Transfer your weight to your hands, balancing with very light pressure on the weak leg as you lower your strong leg alongside your weak leg. Melo Wrap An "Melo Bandage" refers to any elastic bandage wrap (2-6" wide). This is used to apply support and compression to an arm or leg. It will help prevent or reduce swelling also. When applying the bandage, it should not be stretched too tightly. A tight Melo Wrap will reduce circulation and cause tingling or numbness in the hand or foot. It may increase the pain under the bandage. If you get these symptoms, remove the wrap and rest the limb. Symptoms should go away within 1-2 hours. Once symptoms go away, reapply the bandage with less stretch. If symptoms do not go away after 1-2 hours with the bandage off, call your doctor or return to this facility promptly. Hydrocodone Bitartrate, Acetaminophen Oral tablet What is this medicine? ACETAMINOPHEN; HYDROCODONE (a set a KATHLEEN yaniv fen; nena droe KOE done) is a pain reliever. It is used to treat mild to moderate pain. How should I use this medicine? Take this medicine by mouth. Swallow it with a full glass of water. Follow the directions on the prescription label. If the medicine upsets your stomach, take the medicine with food or milk. Do not take more than you are told to take. Talk to your tank crewmember regarding the use of this medicine in children. This medicine is not approved for use in children. What side effects may I notice from receiving this medicine? Side effects that you should report to your doctor or health care worker as soon as possible: allergic reactions like skin rash, itching or hives, swelling of the face, lips, or tongue breathing problems confusion feeling faint or lightheaded, falls stomach pain yellowing of the eyes or skin Side effects that usually do not require medical attention (report to your doctor or health care worker if they continue or are bothersome): nausea, vomiting stomach upset What may interact with this medicine? alcohol antihistamines isoniazid medicines for depression, anxiety, or psychotic disturbances medicines for sleep muscle relaxants naltrexone narcotic medicines (opiates) for pain phenobarbital ritonavir tramadol What if I miss a dose? If you miss a dose, take it as soon as you can. If it is almost time for your next dose, take only that dose. Do not take double or extra doses. Where should I keep my medicine? Keep out of the reach of children. This medicine can be abused. Keep your medicine in a safe place to protect it from theft. Do not share this medicine with anyone. Selling or giving away this medicine is dangerous and against the law. Store at room temperature between 15 and 30 degrees C (59 and 86 degrees F). Protect from light. Keep container tightly closed. Throw away any unused medicine after the expiration date. Discard unused medicine and used packaging carefully. Pets and children can be harmed if they find used or lost packages. What should I tell my health care provider before I take this medicine? They need to know if you have any of these conditions: brain tumor Crohn's disease, inflammatory bowel disease, or ulcerative colitis drink more than 3 alcohol-containing drinks per day drug abuse or addiction head injury heart or circulation problems kidney disease or problems going to the bathroom liver disease lung disease, asthma, or breathing problems an unusual or allergic reaction to acetaminophen, hydrocodone, other opioid analgesics, other medicines, foods, dyes, or preservatives or trying to get breast-feeding What should I watch for while using this medicine? Tell your doctor or health care worker if your pain does not go away, if it gets worse, or if you have new or a different type of pain. You may develop tolerance to the medicine. Tolerance means that you will need a higher dose of the medicine for pain relief. Tolerance is normal and is expected if you take the medicine for a long time. Do not suddenly stop taking your medicine because you may develop a severe reaction. Your body becomes used to the medicine. This does NOT mean you are addicted. Addiction is a behavior related to getting and using a drug for a non-medical reason. If you have pain, you have a medical reason to take pain medicine. Your doctor will tell you how much medicine to take. If your doctor wants you to stop the medicine, the dose will be slowly lowered over time to avoid any side effects. You may get drowsy or dizzy when you first start taking the medicine or change doses. Do not drive, use machinery, or do anything that may be dangerous until you know how the medicine affects you. Stand or sit up slowly. There are different types of narcotic medicines (opiates) for pain. If you take more than one type at the same time, you may have more side effects. Give your health care provider a list of all medicines you use. Your doctor will tell you how much medicine to take. Do not take more medicine than directed. Call emergency for help if you have problems breathing. The medicine will cause constipation. Try to have a bowel movement at least every 2 to 3 days. If you do not have a bowel movement for 3 days, call your doctor or health care worker. Too much acetaminophen can be very dangerous. Do not take Tylenol (acetaminophen) or medicines that contain acetaminophen with this medicine. Many non-prescription medicines contain acetaminophen. Always read the labels carefully. You have been given the following additional information: Contusion, Soft Tissue Crutch Walking Melo Wrap Hydrocodone Bitartrate, Acetaminophen Oral tablet You may walk and bear weight as tolerated. (Electronically signed by Chuy Kwong MD 09/09/2016 23:58)
== END 2016-09-05 23:55 | disposition home or self-care (01) ==
LOC: ED SRH 20:52
DX: S90.01XA Contusion of right ankle, initial encounter (principal); S90.31XA Contusion of right foot, initial encounter; W20.8XXA Other cause of strike by thrown, projected or falling object, initial encounter; X50.0XXA Overexertion from strenuous movement or load, initial encounter; Y92.099 Unspecified place in other non-institutional residence as the place of occurrence of the external cause; Y99.8 Other external cause status; F17.210 Nicotine dependence, cigarettes, uncomplicated; Z88.8 Allergy status to other drugs, medicaments and biological substances; Z88.5 Allergy status to narcotic agent

== ENCOUNTER 2016-10-31 18:20 | Emergency (ER) | payer OTHER ==
--- NOTE | 2016-10-31 19:55 | DIAGNOSTIC IMAGING REPORT ---
PROCEDURE: XR CHEST 2 VIEW INDICATION: CHEST PAIN TECHNIQUE: PA and lateral view. COMPARISON: None. FINDINGS: Lungs are clear. Cardiovascular structures are normal. Bony thorax is unremarkable. IMPRESSION: 1. Negative chest.
--- NOTE | 2016-10-31 19:59 | ED NURSING NOTES ---
Clinical Report - Nurses [facility] [address] [place] [address] 10/31/2016 18:21 Patient: MICHAELA SHARMA TRIAGE Triage time 18:22. Acuity: LEVEL 2. Chief Complaint: CHEST PAIN and SHORTNESS OF BREATH (Michaela said his CP began about 1 week ago but today he developed SOB. Substernal chest pain. No cardiac hx. Reports first time having this kind of chest pain. Alleviating factors for CP: None. Aggravating factors: coughing which leads to vomiting. Denies any sick contacts.). Alert. --18:28 Joon Tobar R.N. 18:22 10/31/16. BP: 134/90 (regular adult cuff) taken on the left arm, via an automated monitor, while lying. HR: 104 (tachycardic). RR: 18 (regular, unlabored and normal). O2 saturation: 99% on room air. Temp: 99 F (oral). Pain level now: 02/28. --18:28 Joon Tobar R.N. Weight: 87.9 kg stated. Height/Length: 71 inches Per Patient. BMI: 27. --18:22 Joon Tobar R.N. Medications None. --18:23 Joon Tobar R.N. Allergies Tylenol. --18:23 Joon Tobar R.N. Tramadol. --18:23 Joon Tobar R.N. Codeine. --18:23 Joon Tobar R.N. History Arrived by private vehicle. Historian: patient. Accompanied by family. Primary physician (None). The patient has had nausea and vomiting. The vomiting has occurred several times. He has had a cough (Pt describes it as "a real bad cough."). ( Last meal today: Iraqi food tacos (reports vomited it up).). No fever. 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 PAST MEDICAL HX: Immunizations: up-to-date. SOCIAL HX: Never smoker. No alcohol use or drug use. He has not traveled outside the [place] The patient was not exposed to MRSA. ABUSE ASSESSMENT: Abuse assessment: The patient was asked "Do you feel safe in your home?" and "Has anyone hurt you or threatened to hurt you?". No report of abuse. SELF HARM ASSESSMENT: A self harm assessment was performed. The patient answered "no" to the question "Do you have thoughts of harming or killing yourself?" and "Have you recently had thoughts about harming or killing others?". FALL RISK ASSESSMENT: Fall risk assessment completed. No fall risk identified. NUTRITIONAL RISK ASSESSMENT: The nutritional risk assessment revealed no deficiencies. FUNCTIONAL ASSESSMENT: Functional assessment: no impairments noted. LEARNING NEEDS ASSESSMENT: The learning needs assessment revealed no barriers. SKIN INTEGRITY ASSESSMENT: Skin integrity risk assessment completed. No skin integrity risk identified. --18:28 Joon Tobar R.N. PROBLEMS: Contusion. Drug Rash. Dental Pain. Dental Caries. Constipation. UTI - Urinary Tract Infection. Abdominal Pain. --18:24 Joon Tobar R.N. ADDITIONAL SURGERIES: Dental Surgery. --18:24 Joon Tobar R.N. Assessment GENERAL / NEURO / PSYCH: Alert. Oriented X 4. Appears in distress. He appears uncomfortable. Patient appears calm and cooperative. RESPIRATORY: No respiratory distress. Respirations not labored. SKIN: Skin is warm and dry. --18:28 Joon Tobar R.N. Interventions ID band on patient. EKG time: (1830). EKG was ordered, performed by a tech and shown to the ED physician and PA. To treatment room. No allergy band on patient. --18:28 Joon Tobar R.N. 18:28 10/31/2016 Site #1 started via IV in the right antecubital space with an 18g angiocath, with aseptic technique and good blood return; one attempt. Blood drawn: rainbow set. Labeled in the presence of the patient and sent to the lab. Saline lock flushed with 10 mL saline. --18:28 Joon Tobar R.N. NURSING PROGRESS NOTES The initial plan of care for this patient has been created This plan of care was discussed with the patient. plaster maker, pulse oximeter and NIBP monitor placed on patient; parts data writer- Lead II. Patient gowned. Reassurance given to the patient. Two patient identifiers checked. Call light placed in reach. Side rails up x 1. Bed placed in lowest position. Brakes of bed on. Patient ready for evaluation- ED physician and PA notified. --18:28 Joon Tobar R.N. EKG time: (1830). EKG was ordered, performed by a tech and shown to the ED physician. --18:29 Caroline Corea 18:36 10/31/2016 Aspirin PO Tablets 325 mg given. Allergies verified and confirmed 5 rights. --18:36 Joon Tobar R.N. 18:36 10/31/2016 Started bag #1 1000 mL IV Fluids IV NS (Saline); bolus of 1000 mL over 1 hour(s) via site #1. Allergies verified and confirmed 5 rights. IV patency established. IV site checked: no pain, redness, or swelling. IV flushed thoroughly pre- and post-medication administration. Completed per protocol. --18:36 Joon Tobar R.N. 19:43 10/31/16. :patient confirmed. Clean catch urine collected; sample sent to lab. Specimen labeled in the presence of the patient. --19:43 Edna Goldman R.N. 19:58 10/31/2016 IV Fluids IV NS Discontinued: bag #1 completed. Total amount infused: 1000 mL. --19:58 Magy Sheldon 19:58 10/31/16. BP: 112/61. HR: 84. RR: 16. O2 saturation: 99%. --20:03 Magy Sheldon Patient waiting for results. --20:03 Magy Sheldon 20:10 10/31/2016 Site #1 removed upon discharge. Catheter intact. Pressure dressing applied. --20:10 Magy Sheldon. DISPOSITION / DISCHARGE Departure time: 2009. Condition at departure: improved and stable. No learning barriers present. Discharge instructions provided and reviewed with the patient. Reviewed medication(s). Patient verbalized understanding. Written instructions provided in Citizen [place]. The patient was discharged by the physician. He was discharged home and unaccompanied at time of discharge. He left the Emergency Department ambulatory and via private vehicle. Patient driving. --20:11 Magy Sheldon. Locked/Released at 10/31/2016 20:11 by Magy Sheldon,
--- NOTE | 2016-10-31 19:59 | ED ORDER SUMMARY ---
..... Patient: MICHAELA SHARMA OrderSheet [facility] VisitID: [id number] [address] [place] [address] 31y, M Registration Date/Time: 10/31/2016 ORDER SHEET Weight: 87.9 kg (stated) Allergies: Tylenol, Tramadol, Codeine GENERAL ORDERS: Chest 2V Urgent (18:30 10/31/2016 [facility] (Ack 18:38 TBergley) (18:46 TBergley) Industrial Mechanic (Continuous) (18:30 10/31/2016 [facility] (18:30 JDeElena R.N.) UA-Culture if indicated Urgent (18:30 [facility]/31/2016 [facility] (Ack 18:38 TBergley) Cardiac Panel Stat (18:30 10/31/2016 [facility]) (18:33 JSimbeck R.N.) BNP Urgent (18:30 10/31/2016 [facility] DO) (18:33 JSimbeck R.N.) D-Dimer Urgent (18:30 10/31/2016 [facility] DO) (18:34 JSimbeck R.N.) Amylase Urgent (18:30 10/31/2016 [facility] DO) (18:34 JSimbeck R.N.) PT with INR Urgent (18:30 10/31/2016 [facility] DO) (18:34 JSimbeck R.N.) Oxygen (2 L/min) (NC) (18:30 10/31/2016 [facility] DO) (18:30 JDeElena R.N.) Pulse oximeter (18:30 10/31/2016 [facility] DO) (18:30 JDeElena R.N.) EKG - ER Stat (18:30 10/31/2016 [facility] DO) (18:30 JDeElena R.N.) Vitals (18:30 10/31/2016 [facility] DO) (18:30 JDeElena R.N.) MEDICATION ORDERS: Aspirin PO 325 mg (NOW) (18:30 10/31/2016 [facility]) (Ack 18:30 JDeElena R.N.) (18:36 JDeElena R.N.) Phenergan IV 12.5 mg (HIGH ALERT MEDICATION, NOW) (19:46 10/31/2016 [facility]) IV FLUIDS: IV NS : initial bolus 1000 mL (1000 mL/hr), then 500 mL/hr for X2 (NOW) (18:30 10/31/2016 [facility]) (Ac 18:30 JDeElena R.N.) (18:36 JDeElena R.N.) Zofran IV 4 mg (NOW) (19:46 10/31/2016 [facility]) ORDER SHEET NOTES: [Electronically signed by Magy Sheldon (20:11 10/31/2016)] [Electronically signed by Mehrdad Pinon DO (21:34 10/31/2016)] [Electronically locked/signed by Magy Sheldon (20:11 10/31/2016)]
--- NOTE | 2016-10-31 19:59 | ED NURSING NOTES ---
Clinical Report - Nurses [facility] [address] [place] [address] 10/31/2016 18:21 Patient: MICHAELA SHARMA TRIAGE Triage time 18:22. Acuity: LEVEL 2. Chief Complaint: CHEST PAIN and SHORTNESS OF BREATH (Michaela said his CP began about 1 week ago but today he developed SOB. Substernal chest pain. No cardiac hx. Reports first time having this kind of chest pain. Alleviating factors for CP: None. Aggravating factors: coughing which leads to vomiting. Denies any sick contacts.). Alert. --18:28 Joon Tobar R.N. 18:22 10/31/16. BP: 134/90 (regular adult cuff) taken on the left arm, via an automated monitor, while lying. HR: 104 (tachycardic). RR: 18 (regular, unlabored and normal). O2 saturation: 99% on room air. Temp: 99 F (oral). Pain level now: 02/28. --18:28 Joon Tobar R.N. Weight: 87.9 kg stated. Height/Length: 71 inches Per Patient. BMI: 27. --18:22 Joon Tobar R.N. Medications None. --18:23 Joon Tobar R.N. Allergies Tylenol. --18:23 Joon Tobar R.N. Tramadol. --18:23 Joon Tobar R.N. Codeine. --18:23 Joon Tobar R.N. History Arrived by private vehicle. Historian: patient. Accompanied by family. Primary physician (None). The patient has had nausea and vomiting. The vomiting has occurred several times. He has had a cough (Pt describes it as "a real bad cough."). ( Last meal today: Kos[place] food tacos (reports vomited it up).). No fever. 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 PAST MEDICAL HX: Immunizations: up-to-date. SOCIAL HX: Never smoker. No alcohol use or drug use. He has not traveled outside the [place] The patient was not exposed to MRSA. ABUSE ASSESSMENT: Abuse assessment: The patient was asked "Do you feel safe in your home?" and "Has anyone hurt you or threatened to hurt you?". No report of abuse. SELF HARM ASSESSMENT: A self harm assessment was performed. The patient answered "no" to the question "Do you have thoughts of harming or killing yourself?" and "Have you recently had thoughts about harming or killing others?". FALL RISK ASSESSMENT: Fall risk assessment completed. No fall risk identified. NUTRITIONAL RISK ASSESSMENT: The nutritional risk assessment revealed no deficiencies. FUNCTIONAL ASSESSMENT: Functional assessment: no impairments noted. LEARNING NEEDS ASSESSMENT: The learning needs assessment revealed no barriers. SKIN INTEGRITY ASSESSMENT: Skin integrity risk assessment completed. No skin integrity risk identified. --18:28 Joon Tobar R.N. PROBLEMS: Contusion. Drug Rash. Dental Pain. Dental Caries. Constipation. UTI - Urinary Tract Infection. Abdominal Pain. --18:24 Joon Tobar R.N. ADDITIONAL SURGERIES: Dental Surgery. --18:24 Joon Tobar R.N. Assessment GENERAL / NEURO / PSYCH: Alert. Oriented X 4. Appears in distress. He appears uncomfortable. Patient appears calm and cooperative. RESPIRATORY: No respiratory distress. Respirations not labored. SKIN: Skin is warm and dry. --18:28 Joon Tobar R.N. Interventions ID band on patient. EKG time: (1830). EKG was ordered, performed by a tech and shown to the ED physician and PA. To treatment room. No allergy band on patient. --18:28 Joon Tobar R.N. 18:28 10/31/2016 Site #1 started via IV in the right antecubital space with an 18g angiocath, with aseptic technique and good blood return; one attempt. Blood drawn: rainbow set. Labeled in the presence of the patient and sent to the lab. Saline lock flushed with 10 mL saline. --18:28 Joon Tobar R.N. NURSING PROGRESS NOTES The initial plan of care for this patient has been created This plan of care was discussed with the patient. bus monitor, pulse oximeter and NIBP monitor placed on patient; compliance monitor- Lead II. Patient gowned. Reassurance given to the patient. Two patient identifiers checked. Call light placed in reach. Side rails up x 1. Bed placed in lowest position. Brakes of bed on. Patient ready for evaluation- ED physician and PA notified. --18:28 Joon Tobar R.N. EKG time: (1830). EKG was ordered, performed by a tech and shown to the ED physician. --18:29 Caroline Corea 18:36 10/31/2016 Aspirin PO Tablets 325 mg given. Allergies verified and confirmed 5 rights. --18:36 Joon Tobar R.N. 18:36 10/31/2016 Started bag #1 1000 mL IV Fluids IV NS (Saline); bolus of 1000 mL over 1 hour(s) via site #1. Allergies verified and confirmed 5 rights. IV patency established. IV site checked: no pain, redness, or swelling. IV flushed thoroughly pre- and post-medication administration. Completed per protocol. --18:36 Joon Tobar R.N. 19:43 10/31/16. :patient confirmed. Clean catch urine collected; sample sent to lab. Specimen labeled in the presence of the patient. --19:43 Edna Goldman R.N. 19:58 10/31/2016 IV Fluids IV NS Discontinued: bag #1 completed. Total amount infused: 1000 mL. --19:58 Magy Sheldon 19:58 10/31/16. BP: 112/61. HR: 84. RR: 16. O2 saturation: 99%. --20:03 Magy Sheldon Patient waiting for results. --20:03 Magy Sheldon 20:10 10/31/2016 Site #1 removed upon discharge. Catheter intact. Pressure dressing applied. --20:10 Magy Sheldon. DISPOSITION / DISCHARGE Departure time: 2009. Condition at departure: improved and stable. No learning barriers present. Discharge instructions provided and reviewed with the patient. Reviewed medication(s). Patient verbalized understanding. Written instructions provided in [place]. The patient was discharged by the physician. He was discharged home and unaccompanied at time of discharge. He left the Emergency Department ambulatory and via private vehicle. Patient driving. --20:11 Magy Sheldon. Locked/Released at 10/31/2016 20:11 by Magy Sheldon,
--- NOTE | 2016-10-31 19:59 | ED ORDER SUMMARY ---
..... Patient: MICHAELA SHARMA OrderSheet [facility] VisitID: [id number] [address] [place] [address] 31y, M Registration Date/Time: 10/31/2016 ORDER SHEET Weight: 87.9 kg (stated) Allergies: Tylenol, Tramadol, Codeine GENERAL ORDERS: Chest 2V Urgent (18:30 10/31/2016 [facility]) (Ack 18:38 TBergley) (18:46 TBergley) Spiritual Care Coordinator (Continuous) (18:30 10/31/2016 [facility]) (18:30 JDeElena R.N.) UA-Culture if indicated Urgent (18:30 10/31/2016 [facility] DO) (Ack 18:38 TBergley) Cardiac Panel Stat (18:30 10/31/2016 [facility] DO) (18:33 JSimbeck R.N.) BNP Urgent (18:30 10/31/2016 [facility] DO) (18:33 JSimbeck R.N.) D-Dimer Urgent (18:30 10/31/2016 [facility] DO) (18:34 JSimbeck R.N.) Amylase Urgent (18:30 10/31/2016 [facility] DO) (18:34 JSimbeck R.N.) PT with INR Urgent (18:30 10/31/2016 [facility] DO) (18:34 JSimbeck R.N.) Oxygen (2 L/min) (NC) (18:30 10/31/2016 [facility] DO) (18:30 JDeElena R.N.) Pulse oximeter (18:30 10/31/2016 [facility] DO) (18:30 JDeElena R.N.) EKG - ER Stat (18:30 10/31/2016 [facility] DO) (18:30 JDeElena R.N.) Vitals (18:30 10/31/2016 [facility] DO) (18:30 JDeElena R.N.) MEDICATION ORDERS: Aspirin PO 325 mg (NOW) (18:30 10/31/2016 [facility] DO) (Ack 18:30 JDeElena R.N.) (18:36 JDeElena R.N.) Phenergan IV 12.5 mg (HIGH ALERT MEDICATION, NOW) (19:46 10/31/2016 [facility]) IV FLUIDS: IV NS : initial bolus 1000 mL (1000 mL/hr), then 500 mL/hr for X2 (NOW) (18:30 10/31/2016 [facility]) (Ac 18:30 JDeElena R.N.) (18:36 JDeElena R.N.) Zofran IV 4 mg (NOW) (19:46 10/31/2016 [facility]) ORDER SHEET NOTES: [Electronically signed by Magy Sheldon (20:11 10/31/2016)] [Electronically signed by Mehrdad Pinon DO (21:34 10/31/2016)] [Electronically locked/signed by Magy Sheldon (20:11 10/31/2016)]
--- NOTE | 2016-10-31 19:59 | ED CLINICAL REPORT ---
Clinical Report - Physicians/Mid Levels [facility] [address] [place] [address] 10/31/2016 18:21 Patient: MICHAELA SHARMA Time Seen: 18:29. Arrived- By private vehicle. Historian- patient. HISTORY OF PRESENT ILLNESS Chief Complaint: CHEST PAIN. At its maximum, severity described as moderate. When seen in the E.D., severity described as moderate. Modifying factors- worsened by movement and food. Relieved by rest. It is described as "pain" and it is described as located in the central chest area and epigastric area. No radiation. This started about 1 week ago and is still present. It was gradual in onset and has been waxing/waning. Onset during light activity. The patient has had nausea and vomiting. No difficulty breathing or diaphoresis. (The patient has had nausea and vomiting. The vomiting has occurred several times. He has had a cough (Pt describes it as "a real bad cough."). ( Last meal today: [email or web address] food tacos (reports vomited it up).). No fever). Similar symptoms previously: Recent medical care: The patient was seen recently at this facility in the emergency department. REVIEW OF SYSTEMS No fever, chills, pedal edema, calf pain or fainting episodes. No headache, sore throat, black stools, difficulty with urination or skin rash. No enlarged lymph nodes, joint pain or bloody stools. The patient has had a moderate nonproductive cough. No blood tinged sputum or frankly bloody sputum. He has had mild abdominal pain. The pain is described as located in the upper abdomen and epigastrium. All systems otherwise negative, except as recorded above. PAST HISTORY PROBLEMS: Drug Rash. Dental Pain. Dental Caries. Constipation. UTI - Urinary Tract Infection. Abdominal Pain. SURGERIES: Dental Surgery. Medications: None. Allergies: Codeine. Tramadol. Tylenol. SOCIAL HISTORY Smoker- current status unknown. No alcohol use or drug use. Residence: states he recently moved from [place] Is a local resident. ADDITIONAL NOTES The nursing notes have been reviewed. PHYSICAL EXAM Vital Signs: 10/31/2016 18:22 BP: 134/90. HR: 104. RR: 18. O2 saturation: 99%. Temp: 99 F. Pain level now: 9/10. Appearance: Alert. Oriented X3. No acute distress. Eyes: Pupils equal, round and reactive to light. Eyes normal inspection. No scleral icterus or pale conjunctivae. ENT: Pharynx normal. No pharyngeal erythema or tonsillar exudate. The mucous membranes are not dry. Neck: Normal inspection. Neck supple. CVS: Tachycardia. Heart sounds normal. Pulses normal. Respiratory: No respiratory distress. Chest pain reproducible with palpation of the anterior chest wall. Breath sounds normal. Abdomen: Soft. Mild tenderness in the upper abdomen and epigastric area. Bowel sounds normal. No organomegaly. No mass. Back: Normal external inspection. Skin: Skin warm and dry. Normal skin color. No rash. Normal skin turgor. Extremities: Extremities exhibit normal ROM. No calf tenderness. No lower extremity edema. Neuro: Oriented X 3. No motor deficit. No sensory deficit. LABS, X-RAYS, AND EKG EKG: EKG time: (18:30). Normal sinus rhythm. Rate: 100. Normal P waves. Normal CARLIE. Normal QRS complex. Normal axis. Normal ST and T waves. The study has been interpreted contemporaneously by me. The EKG appears to be a good tracing. Rhythm Strip #1: Sinus tachycardia. Regular rhythm. Narrow QRS complexes. No ectopy. Chest X-ray: No acute disease. Normal lung markings present. Normal heart size. Mediastinum normal. Great vessels normal. Soft tissues normal. No infiltrate. No fracture. No bony lesion present. Views: PA and lateral. Technique: good. The X-rays were interpreted contemporaneously by me. Laboratory Tests: UA-Culture if indicated: (JACQUELYN: 10/31/2016 19:40) ( MsgRcvd 10/31/2016 19:58) Final results Test Result Flag Units (Reference) URINE COLOR YELLOW URINE APPEARANCE CLEAR URINE GLUCOSE NEGATIVE (NEGATIVE) URINE BILIRUBIN NEGATIVE (NEGATIVE) URINE KETONE NEGATIVE (NEGATIVE) URINE SPECIFIC GRAVITY 1.020 (1.010-1.030) URINE PH 6.5 (5.0-8.0) URINE PROTEIN NEGATIVE (NEGATIVE) URINE UROBILINOGEN 1.0 EU/dL (0.2-1.0) URINE NITRITE NEGATIVE (NEGATIVE) URINE BLOOD NEGATIVE (NEGATIVE) URINE LEUK ESTERASE NEGATIVE (NEGATIVE) URINE RBC 3-5 rbc/hpf (0-1) URINE WBC 3-5 wbc/hpf (0-1) URINE EPITHELIAL CELLS 1-3 EPI/hpf (0-5) URINE BACTERIA NONE SEEN (NONE SEEN) URINE COMMENT CULT NOT INDICATED 1+ MUCUSURINE CULTURES ARE SET-UP BASED ON THE FOLLOWING CRITERIA:POSITIVE NITRITEPOSITIVE LEUKOCYTE ESTERASEGREATER THAN 10 WHITE BLOOD CELLSMODERATE (2+) OR GREATER BACTERIA CBC w Diff: (JACQUELYN: 10/31/2016 18:25) ( [facility] 10/31/[facility] 18:51) Final results Test Result Flag Units (Reference) WHITE BLOOD COUNT 10.4 K/uL (4.5-11.5) RED BLOOD COUNT 5.17 M/uL (4.50-5.90) HEMOGLOBIN 15.0 gm/dL (13.5-17.5) HEMATOCRIT 45.9 % (41.0-53.0) MEAN CELL VOLUME 89 fL (80-100) MEAN CORPUSCULAR HGB 29 pg (26-34) MEAN CORPUSCULAR HGB CONC 33 g/dL (31-37) RED CELL DISTRIBUTION WIDTH 12.4 % (11.6-14.8) PLATELET COUNT 310 K/uL (150-400) NEUTROPHIL % 53.9 % (50-75) LYMPH % 34.3 % (25-40) MONO % 9.9 % (3-14) EOSINOPHIL % 1.4 % (0-4) BASOPHIL % 0.5 % (0-2) PT with INR: (JACQUELYN: 10/31/2016 18:25) ( MsgRcvd 10/31/2016 18:58) Final results Test Result Flag Units (Reference) INR 1.0 (0.8-1.2) Low Intensity Therapy: INR 1.5-2.0 PT range 18.5-23.1Mod.Intensity Therapy: INR 2.0-3.0 PT range 23.1-31.5High Intensity Therapy: INR 2.5-3.5 PT range 27.4-35.5High Intensity Therapy 2: INR 3.0-4.0 PT range 31.5-39.3 D-DIMER QUANTITATIVE < 0.27 L ug/mLFEU (0.27-0.52) The primary value of this quantitative assay relates toits negative predictive value (i.e. exclusion) of pulmonaryembolism/deep vein thrombosis/DIC.Elevated levels of d-dimer may also occur with:, age, cancer, inflammation, liver disease,post-op, infection, hematoma, coronary disease, peripheralarteriopathy, bleeding disorders and thrombolytic treatment.Results should be correlated with other clinical andradiological data.Testing Methodology: Latex Immunoassay BNP: (JACQUELYN: 10/31/2016 18:25) ( [facility] 10/31/2016 19:10) Final results Test Result Flag Units (Reference) B-TYPE NATRIURETIC PEPTIDE 16.6 pg/ml (5-100) CHEM 13 PANEL: (JACQUELYN: 10/31/2016 18:25) ( MigRcvd 10/31/2016 19:27) Final results Test Result Flag Units (Reference) GLUCOSE 89 mg/dL (70-110) BUN 7 mg/dL (7-18) CREATININE 1.1 mg/dL (0.6-1.3) Estimated GFR >60 mL/min Estimated GFR- >60 mL/min Note: Persistent reduction over 3 months in eGFR<60 mL/min/1.73 m2 defines CKD. Patients with eGFR values>=60 mL/min/1.73 m2 may also have CKD if evidence ofpersistent proteinuria. Additional information may be foundat www.kidney.org. SODIUM 148 H mmol/L (136-145) POTASSIUM 3.8 mmol/L (3.5-5.1) CHLORIDE 110 H mmol/L (98-107) CARBON DIOXIDE 28 mmol/L (21-32) CALCIUM 8.6 mg/dL (8.5-10.1) TOTAL PROTEIN 7.0 g/dL (6.4-8.2) ALBUMIN 3.7 g/dL (3.3-5.0) BILIRUBIN, TOTAL 0.2 mg/dL (0.0-1.0) ALKALINE PHOSPHATASE 83 U/L (46-116) AST (SGOT) 22 U/L (15-37) ALT (SGPT) 28 U/L (12-78) MAGNESIUM 2.3 mg/dL (1.8-2.4) AMYLASE 43 U/L (25-115) CPK 131 U/L (24-260) TROPONIN I <0.05 ng/mL (0.00-1.5) TROPONIN REFERENCE RANGE:<0.1 NEGATIVE0.1-1.5 INDETERMINANT>1.5 POSITIVE . Pulse Oximetry: 10/31/2016 18:22 O2 saturation: 99%. (FIO2 - room air). Interpretation: normal. PROGRESS AND PROCEDURES Course of Care: Normal Saline 1 liter IVPB given. ASA 325 mg PO given. No signs of serious cardiopulmonary disease now. Most c/w GI / esophagitis etiology. 20:03 10/31/16. RN going to given pt antiemetics, but he states now that he has no N/V - will hold for now, but provide Rx for later prn. Patient/family counseled. Old medical records reviewed. Patient has had multiple ED visits (SARAHI with 12 visits to area ED's in past 12 months - 6 visits to [facility] ED in past approx 3 months). Disposition: Discharged. Condition: stable and improved. CLINICAL IMPRESSION Microscopic hematuria Vomiting with nausea. No dehydration. Atypical chest pain .12 lead EKG performed. Acute viral bronchitis. Probable chest pain of GI origin (due to esophagitis). INSTRUCTIONS Do not work for two days. Avoid alcohol and NSAIDS. Examples of NSAIDS include aspirin, ibuprofen (Advil) and naproxen (Aleve). Avoid fatty, fried/greasy, lactose-containing (such as milk, cheese and ice cream), salty and spicy foods. Drink plenty of fluids. Do not smoke. Seek medical help to quit smoking. Warnings: Further evaluation is necessary in order to recheck abnormal lab, obtain test results, conduct further tests and assess the possibility of serious illness. It is very important to follow up with a physician. SEDATIVE MEDICATION: You were given sedative medication during your visit. Do not drive or operate dangerous machinery. GENERAL WARNINGS: Return or contact your physician immediately if your condition worsens or changes unexpectedly, if not improving as expected, or if other problems arise. Prescription Medications: Zofran (orally disintegrating tablets) 4 mg: take 1 orally every 8 hours as needed for nausea and vomiting. Dispense five (5). No refill. Substitution is permissible. Phenergan suppositories 25 mg: Insert 1 rectally every 4 to 6 hours as needed for nausea or vomiting. Dispense ten (10). No refills. Substitution is permissible. Prilosec 20 mg capsules: Take 1 capsule orally once daily. Dispense fifteen (15). No refills. Substitution is permissible. Follow-up with: [facility], , , [facility] [address], , [place], [address]; [facility], , , [address] [place] [address], , Abhishek, ; [facility], , [address] [place] [address] Follow up in about two days. (Electronically signed by Mehrdad Pinon DO 10/31/2016 21:34)
--- NOTE | 2016-10-31 19:59 | ED CLINICAL REPORT ---
Clinical Report - Physicians/Mid Levels [facility] [address] [place] [address] 10/31/2016 18:21 Patient: MICHAELA SHARMA Time Seen: 18:29. Arrived- By private vehicle. Historian- patient. HISTORY OF PRESENT ILLNESS Chief Complaint: CHEST PAIN. At its maximum, severity described as moderate. When seen in the E.D., severity described as moderate. Modifying factors- worsened by movement and food. Relieved by rest. It is described as "pain" and it is described as located in the central chest area and epigastric area. No radiation. This started about 1 week ago and is still present. It was gradual in onset and has been waxing/waning. Onset during light activity. The patient has had nausea and vomiting. No difficulty breathing or diaphoresis. (The patient has had nausea and vomiting. The vomiting has occurred several times. He has had a cough (Pt describes it as "a real bad cough."). ( Last meal today: [employer] food tacos (reports vomited it up).). No fever). Similar symptoms previously: Recent medical care: The patient was seen recently at this facility in the emergency department. REVIEW OF SYSTEMS No fever, chills, pedal edema, calf pain or fainting episodes. No headache, sore throat, black stools, difficulty with urination or skin rash. No enlarged lymph nodes, joint pain or bloody stools. The patient has had a moderate nonproductive cough. No blood tinged sputum or frankly bloody sputum. He has had mild abdominal pain. The pain is described as located in the upper abdomen and epigastrium. All systems otherwise negative, except as recorded above. PAST HISTORY PROBLEMS: Drug Rash. Dental Pain. Dental Caries. Constipation. UTI - Urinary Tract Infection. Abdominal Pain. SURGERIES: Dental Surgery. Medications: None. Allergies: Codeine. Tramadol. Tylenol. SOCIAL HISTORY Smoker- current status unknown. No alcohol use or drug use. Residence: states he recently moved from [place] Is a local resident. ADDITIONAL NOTES The nursing notes have been reviewed. PHYSICAL EXAM Vital Signs: 10/31/2016 18:22 BP: 134/90. HR: 104. RR: 18. O2 saturation: 99%. Temp: 99 F. Pain level now: 9/10. Appearance: Alert. Oriented X3. No acute distress. Eyes: Pupils equal, round and reactive to light. Eyes normal inspection. No scleral icterus or pale conjunctivae. ENT: Pharynx normal. No pharyngeal erythema or tonsillar exudate. The mucous membranes are not dry. Neck: Normal inspection. Neck supple. CVS: Tachycardia. Heart sounds normal. Pulses normal. Respiratory: No respiratory distress. Chest pain reproducible with palpation of the anterior chest wall. Breath sounds normal. Abdomen: Soft. Mild tenderness in the upper abdomen and epigastric area. Bowel sounds normal. No organomegaly. No mass. Back: Normal external inspection. Skin: Skin warm and dry. Normal skin color. No rash. Normal skin turgor. Extremities: Extremities exhibit normal ROM. No calf tenderness. No lower extremity edema. Neuro: Oriented X 3. No motor deficit. No sensory deficit. LABS, X-RAYS, AND EKG EKG: EKG time: (18:30). Normal sinus rhythm. Rate: 100. Normal P waves. Normal CARLIE. Normal QRS complex. Normal axis. Normal ST and T waves. The study has been interpreted contemporaneously by me. The EKG appears to be a good tracing. Rhythm Strip #1: Sinus tachycardia. Regular rhythm. Narrow QRS complexes. No ectopy. Chest X-ray: No acute disease. Normal lung markings present. Normal heart size. Mediastinum normal. Great vessels normal. Soft tissues normal. No infiltrate. No fracture. No bony lesion present. Views: PA and lateral. Technique: good. The X-rays were interpreted contemporaneously by me. Laboratory Tests: UA-Culture if indicated: (JACQUELYN: 10/31/2016 19:40) ( MsgRcvd 10/31/2016 19:58) Final results Test Result Flag Units (Reference) URINE COLOR YELLOW URINE APPEARANCE CLEAR URINE GLUCOSE NEGATIVE (NEGATIVE) URINE BILIRUBIN NEGATIVE (NEGATIVE) URINE KETONE NEGATIVE (NEGATIVE) URINE SPECIFIC GRAVITY 1.020 (1.010-1.030) URINE PH 6.5 (5.0-8.0) URINE PROTEIN NEGATIVE (NEGATIVE) URINE UROBILINOGEN 1.0 EU/dL (0.2-1.0) URINE NITRITE NEGATIVE (NEGATIVE) URINE BLOOD NEGATIVE (NEGATIVE) URINE LEUK ESTERASE NEGATIVE (NEGATIVE) URINE RBC 3-5 rbc/hpf (0-1) URINE WBC 3-5 wbc/hpf (0-1) URINE EPITHELIAL CELLS 1-3 EPI/hpf (0-5) URINE BACTERIA NONE SEEN (NONE SEEN) URINE COMMENT CULT NOT INDICATED 1+ MUCUSURINE CULTURES ARE SET-UP BASED ON THE FOLLOWING CRITERIA:POSITIVE NITRITEPOSITIVE LEUKOCYTE ESTERASEGREATER THAN 10 WHITE BLOOD CELLSMODERATE (2+) OR GREATER BACTERIA CBC w Diff: (JACQUELYN: 10/31/2016 18:25) ( [facility] [place]) Final results Test Result Flag Units (Reference) WHITE BLOOD COUNT 10.4 K/uL (4.5-11.5) RED BLOOD COUNT 5.17 M/uL (4.50-5.90) HEMOGLOBIN 15.0 gm/dL (13.5-17.5) HEMATOCRIT 45.9 % (41.0-53.0) MEAN CELL VOLUME 89 fL (80-100) MEAN CORPUSCULAR HGB 29 pg (26-34) MEAN CORPUSCULAR HGB CONC 33 g/dL (31-37) RED CELL DISTRIBUTION WIDTH 12.4 % (11.6-14.8) PLATELET COUNT 310 K/uL (150-400) NEUTROPHIL % 53.9 % (50-75) LYMPH % 34.3 % (25-40) MONO % 9.9 % (3-14) EOSINOPHIL % 1.4 % (0-4) BASOPHIL % 0.5 % (0-2) PT with INR: (JACQUELYN: 10/31/2016 18:25) ( MsgRcvd 10/31/2016 18:58) Final results Test Result Flag Units (Reference) INR 1.0 (0.8-1.2) Low Intensity Therapy: INR 1.5-2.0 PT range 18.5-23.1Mod.Intensity Therapy: INR 2.0-3.0 PT range 23.1-31.5High Intensity Therapy: INR 2.5-3.5 PT range 27.4-35.5High Intensity Therapy 2: INR 3.0-4.0 PT range 31.5-39.3 D-DIMER QUANTITATIVE < 0.27 L ug/mLFEU (0.27-0.52) The primary value of this quantitative assay relates toits negative predictive value (i.e. exclusion) of pulmonaryembolism/deep vein thrombosis/DIC.Elevated levels of d-dimer may also occur with:, age, cancer, inflammation, liver disease,post-op, infection, hematoma, coronary disease, peripheralarteriopathy, bleeding disorders and thrombolytic treatment.Results should be correlated with other clinical andradiological data.Testing Methodology: Latex Immunoassay BNP: (JACQUELYN: 10/31/2016 18:25) ( [facility] 10/31/2016 19:10) Final results Test Result Flag Units (Reference) B-TYPE NATRIURETIC PEPTIDE 16.6 pg/ml (5-100) CHEM 13 PANEL: (JACQUELYN: 10/31/2016 18:25) ( [facility] 10/31/2016 19:27) Final results Test Result Flag Units (Reference) GLUCOSE 89 mg/dL (70-110) BUN 7 mg/dL (7-18) CREATININE 1.1 mg/dL (0.6-1.3) Estimated GFR >60 mL/min Estimated GFR- >60 mL/min Note: Persistent reduction over 3 months in eGFR<60 mL/min/1.73 m2 defines CKD. Patients with eGFR values>=60 mL/min/1.73 m2 may also have CKD if evidence ofpersistent proteinuria. Additional information may be foundat www.kidney.org. SODIUM 148 H mmol/L (136-145) POTASSIUM 3.8 mmol/L (3.5-5.1) CHLORIDE 110 H mmol/L (98-107) CARBON DIOXIDE 28 mmol/L (21-32) CALCIUM 8.6 mg/dL (8.5-10.1) TOTAL PROTEIN 7.0 g/dL (6.4-8.2) ALBUMIN 3.7 g/dL (3.3-5.0) BILIRUBIN, TOTAL 0.2 mg/dL (0.0-1.0) ALKALINE PHOSPHATASE 83 U/L (46-116) AST (SGOT) 22 U/L (15-37) ALT (SGPT) 28 U/L (12-78) MAGNESIUM 2.3 mg/dL (1.8-2.4) AMYLASE 43 U/L (25-115) CPK 131 U/L (24-260) TROPONIN I <0.05 ng/mL (0.00-1.5) TROPONIN REFERENCE RANGE:<0.1 NEGATIVE0.1-1.5 INDETERMINANT>1.5 POSITIVE . Pulse Oximetry: 10/31/2016 18:22 O2 saturation: 99%. (FIO2 - room air). Interpretation: normal. PROGRESS AND PROCEDURES Course of Care: Normal Saline 1 liter IVPB given. ASA 325 mg PO given. No signs of serious cardiopulmonary disease now. Most c/w GI / esophagitis etiology. 20:03 10/31/16. RN going to given pt antiemetics, but he states now that he has no N/V - will hold for now, but provide Rx for later prn. Patient/family counseled. Old medical records reviewed. Patient has had multiple ED visits (SRAAHI with 12 visits to area ED's in past 12 months - 6 visits to [facility] ED in past approx 3 months). Disposition: Discharged. Condition: stable and improved. CLINICAL IMPRESSION Microscopic hematuria Vomiting with nausea. No dehydration. Atypical chest pain .12 lead EKG performed. Acute viral bronchitis. Probable chest pain of GI origin (due to esophagitis). INSTRUCTIONS Do not work for two days. Avoid alcohol and NSAIDS. Examples of NSAIDS include aspirin, ibuprofen (Advil) and naproxen (Aleve). Avoid fatty, fried/greasy, lactose-containing (such as milk, cheese and ice cream), salty and spicy foods. Drink plenty of fluids. Do not smoke. Seek medical help to quit smoking. Warnings: Further evaluation is necessary in order to recheck abnormal lab, obtain test results, conduct further tests and assess the possibility of serious illness. It is very important to follow up with a physician. SEDATIVE MEDICATION: You were given sedative medication during your visit. Do not drive or operate dangerous machinery. GENERAL WARNINGS: Return or contact your physician immediately if your condition worsens or changes unexpectedly, if not improving as expected, or if other problems arise. Prescription Medications: Zofran (orally disintegrating tablets) 4 mg: take 1 orally every 8 hours as needed for nausea and vomiting. Dispense five (5). No refill. Substitution is permissible. Phenergan suppositories 25 mg: Insert 1 rectally every 4 to 6 hours as needed for nausea or vomiting. Dispense ten (10). No refills. Substitution is permissible. Prilosec 20 mg capsules: Take 1 capsule orally once daily. Dispense fifteen (15). No refills. Substitution is permissible. Follow-up with: [facility], , , [facility] [address], , [place], [address]; [facility], , , [address] [place] [address], , Abhishek, ; [facility], , [address] [place] [address] Follow up in about two days. (Electronically signed by Mehrdad Pinon DO 10/31/2016 21:34)
--- NOTE | 2016-10-31 21:35 | ED DISCHARGE INSTRUCTIONS ---
Patient: MICHAELA SHARMA General Instructions [facility] VisitID: [id number] [address], [place] [address] 31y, M Registration Date/Time: 10/31/2016 Microscopic hematuria Vomiting with nausea. No dehydration. Atypical chest pain .12 lead EKG performed. Acute viral bronchitis. Probable chest pain of GI origin (due to esophagitis). INSTRUCTIONS Do not work for two days. Avoid alcohol and NSAIDS. Examples of NSAIDS include aspirin, ibuprofen (Advil) and naproxen (Aleve). Avoid fatty, fried/greasy, lactose-containing (such as milk, cheese and ice cream), salty and spicy foods. Drink plenty of fluids. Do not smoke. Seek medical help to quit smoking. Warnings: Further evaluation is necessary in order to recheck abnormal lab, obtain test results, conduct further tests and assess the possibility of serious illness. It is very important to follow up with a physician. SEDATIVE MEDICATION: You were given sedative medication during your visit. Do not drive or operate dangerous machinery. GENERAL WARNINGS: Return or contact your physician immediately if your condition worsens or changes unexpectedly, if not improving as expected, or if other problems arise. Prescription Medications: Zofran (orally disintegrating tablets) 4 mg: take 1 orally every 8 hours as needed for nausea and vomiting. Dispense five (5). No refill. Substitution is permissible. Phenergan suppositories 25 mg: Insert 1 rectally every 4 to 6 hours as needed for nausea or vomiting. Dispense ten (10). No refills. Substitution is permissible. Prilosec 20 mg capsules: Take 1 capsule orally once daily. Dispense fifteen (15). No refills. Substitution is permissible. Follow-up with: [facility], , , [address], , [place], [address]; [facility], , , [address] [place] [address], , [place], ; [facility], [facility], , [address] [place] [address] Follow up in about two days. ADDITIONAL INFORMATION Chest Pain, Noncardiac Based on your visit today, the exact cause of your chest pain is not certain. Your condition does not seem serious and your pain does not appear to be coming from your heart. However, sometimes the signs of a serious problem take more time to appear. Therefore, please watch for the warning signs listed below. Home Care: Rest today and avoid strenuous activity. Take any prescribed medicine as directed. Follow Up with your doctor or this facility as instructed or if you do not start to feel better within 24 hours. Get Prompt Medical Attention if any of the following occur: A change in the type of pain: if it feels different, becomes more severe, lasts longer, or begins to spread into your shoulder, arm, neck, jaw or back Shortness of breath or increased pain with breathing Cough with dark colored sputum (phlegm) or blood Weakness, dizziness, or fainting Fever of 100.4F (38C) or higher, or as directed by your healthcare provider Swelling, pain or redness in one leg Bronchitis, Viral (Adult: No Abx) You have a viral bronchitis. This illness is contagious during the first few days and is spread through the air by coughing and sneezing, or by direct contact (touching the sick person and then touching your own eyes, nose, or mouth). Most viral illnesses resolve within 10-14 days with rest and simple home remedies, although they may sometimes last for several weeks. Antibiotics will not kill a virus and are generally not prescribed for this condition. Home Care: If symptoms are severe, rest at home for the first 2-3 days. When resuming activity, don't let yourself become overly tired. Do not smoke and avoid the smoke of others. You may use acetaminophen (Tylenol) or ibuprofen (Motrin, Advil) to control fever or pain, unless another pain medicine was prescribed. [NOTE: If you have chronic liver or kidney disease or ever had a stomach ulcer or GI bleeding, talk with your doctor before using these medicines.] (Aspirin should never be used in anyone under 18 years of age who is ill with a fever. It may cause severe liver damage.) Your appetite may be poor so a light diet is fine. Avoid dehydration by drinking 6-8 glasses of fluids per day (water, sport drinks such as Gatorade, juices, tea, soup, etc.). Extra fluids will help loosen secretions in the nose and lung. Tnwy-bff-buukndn cold medicines will not shorten the length of the illness, but may be helpful for cough (Robitussin DM), sore throat (Chloraseptic lozenges or spray), nasal and sinus congestion (Actifed or Sudafed). [NOTE: Do not use decongestants if you have high blood pressure.] Follow Up with your doctor or as directed by our staff if you are not improving over the next week. NOTE: If you are age 65 or older, or if you have chronic asthma or COPD, we recommend a PNEUMOCOCCAL VACCINATION every five years and a yearly INFLUENZAVACCINATION (FLU-SHOT) every . Ask your doctor about this. If you had an X-ray, a radiologist will review it. You will be notified of any new findings that may affect your care.] Get Prompt Medical Attention if any of the following occur: Fever over 100.4F (38.0C) for more than three days Trouble breathing, wheezing or pain with breathing Coughing up blood or increased amounts of colored sputum Weakness, drowsiness, headache, facial pain, ear pain or a stiff neck GERD (Adult) The esophagus is a tube that carries food from the mouth to the stomach. A valve at the lower end of the esophagus prevents stomach acid from flowing upward. If this valve does not work properly, acid from the stomach enters the esophagus. If this occurs over and over, the acid will injure the lining of the esophagus. This condition is called GERD (gastroesophageal reflux disease) or acid reflux. When stomach acid flows upward into the esophagus, it causes burning, pressure or sharp pain in the upper abdomen or mid to lower chest. The pain can spread to the neck, back, or shoulder, similar to heart pain (angina). There may be belching, an acid taste in the back of the throat, chronic cough, or sore throat or hoarseness. GERD symptoms often occur during the day after a big meal, but it can also occur at night when lying down. Smoking,as well as drinking alcohol, increases the risk of GERD. GERD is a chronic condition. Once it begins, it is often lifelong. Treatment includes changes in eating habits and the use of acid madelin medications to decrease the amount of acid in the stomach. Symptoms often improve with treatment, but if treatment is stopped, the symptoms usually return after a few months. So most persons with GERD will need to continue treatment. Home Care: Take the prescribed acid madelin medication for the full course of treatment even if you begin to feel better sooner. This medication can take up to several days to fully control your symptoms. If you cant afford the prescribed medication, you can try kqdf-fjz-ylijciv acid blockers, such as Pepcid AC, Tagamet, Zantac, or Aciphex. If these do not relieve your symptoms, a stronger acid-madelin can be tried, such as Prilosec OTC. You can use antacids, such as Tums, Rolaids, Mylanta, or Maalox, for pain. This will be useful the first few days after starting acid blockers when the blockers havent started working yet. Follow the directions on the label. Liquid antacids may work better than tablets. Note that antacids can interfere with absorption of certain medications. Specifically, do not take Tagamet (cimetidine), Zantac (ranitidine), or Carafate (sucralfate) within 1 hour of taking an antacid. Talk with your pharmacist if you have any questions. Limit or avoid fatty, fried, and spicy foods, as well as coffee, chocolate, mint, and foods with high acid content such as tomatoes and citrus fruit and juices (orange, grapefruit, lemon). Avoid alcohol and smoking. Dont eat large meals, especially at night. Frequent, smaller meals are best. Do not lie down right after eating. And dont eat anything 3 hours before going to bed. If you are overweight, losing weight will reduce symptoms. Women should not wear corsets or girdles because this increases pressure on the stomach and worsens reflux. If your symptoms occur during sleep, use a foam wedge to elevate your upper body (not just your head.) Or, place 4" blocks under the head of your bed. Follow Up with your doctor or as advised by our staff. Further testing may be needed. If you do not begin to improve over the next 4 days, contact your doctor. If you had an x-ray, CT scan, or ECG (electrocardiogram), it will be reviewed by a specialist. Youll be notified of any new findings that affect your care. Get Prompt Medical Attention if any of the following occur: Stomach pain gets worse or moves to the lower right abdomen (appendix area) Chest pain appears or gets worse, or spreads to the back, neck, shoulder, or arm Frequent vomiting (cant keep down liquids) Blood in the stool or vomit (red or black in color) Feeling weak or dizzy, fainting, or trouble breathing Fever of 100.4F (38C) or higher, or as directed by your healthcare provider Blood In The Urine Blood in the urine ("hematuria") has many possible causes. If it occurs after an injury (such as a car accident or fall), it is most often a sign of bruising to the kidney or bladder. Common medical causes of blood in the urine include urinary tract infection, kidney stone, inflammation, tumors, or certain other diseases of the kidney or bladder. Menstruation can cause blood to appear in the urine sample, although it is not coming from the urinary tract. If only a trace amount of blood is present, it will show up on the urine test, even though the urine may be yellow and not pink or red. This may occur with any of the above conditions, as well as heavy exercise or high fever. In this case, your doctor may want to repeat the urine test on another day. This will show if the blood is still present. If so, then other tests can be done to find out the cause. Home Care: If your urine does not appear bloody (pink, brown or red) then you do not need to restrict your activity in any way. If you can see blood in your urine, rest and avoid heavy exertion until your next exam. Do not use aspirin or anti-inflammatory medicine like ibuprofen (Motrin, Advil) or naproxen (Naprosyn, Aleve). These thin the blood and may increase bleeding. Follow Up with your doctor or as advised by our staff. If you were injured and had blood in your urine, you should have a repeat urine test in 1-2 days. Contact your doctor or return to this facility for this test. [NOTE: A radiologist will review any X-rays that were taken. We will notify you of any new findings that may affect your care.] Get Prompt Medical Attention if any of the following occur: Bright red blood or blood clots in the urine (if a new symptom) Weakness, dizziness or fainting New groin, abdominal or back pain Fever of 100.4F (38C) or higher, or as directed by your healthcare provider Repeated vomiting Bleeding from nose, gums or easy bruising Viral Gastroenteritis (6Yr-Adult) Gastroenteritis is another name for thestomach flu.It is most often caused by a virus that affects the stomach and intestinal tract. Symptoms include stomach cramping and fever, vomiting and/or diarrhea, and can last from 2 to 7 days. The danger from repeated vomiting or diarrhea is dehydration. This is the loss of too much water and minerals from the body. When this occurs, body fluids must be replaced. Antibiotics are not effective for this illness, but simple home treatment will be helpful. Home Care If symptoms are severe, rest at home for the next 24 hours. Avoid tobacco, caffeine, and alcohol use, which can worsen symptoms. Acetaminophen (Tylenol) or ibuprofen (Motrin, Advil) may be usedfor fever or pain unless another medication was prescribed. NOTE: If you have chronic liver or kidney disease or ever had a stomach ulcer or GI bleeding, talk with your doctor before using these medicines. Aspirin should never be used in anyone under 18 years of age who is ill with a fever. It may cause severe liver damage. If medicines for diarrhea or vomiting were prescribed, be sure they are takenonly as directed. If vomiting, drink small amounts of clear fluids (such as water, sports drinks, clear sodas) at frequent intervals to prevent dehydration. Start with 1 to 2 tablespoons every 10 minutes. Once vomiting stops, follow these guidelines: During The First 12 To 24 Hours follow the diet below: Beverages: Sport drinks like Gatorade, soft drinks without caffeine; patricia rosalie, mineral water (plain or flavored), decaffeinated tea and coffee. Soups: Clear broth, consomm and bouillon Desserts: Plain gelatin (Jell-O), Popsicles and fruit juice bars. During The Next 24 Hours you may add the following to the above: Hot cereal, plain toast, bread, rolls, crackers Plain noodles, rice, mashed potatoes, chicken noodle or rice soup Unsweetened canned fruit (avoid pineapple), bananas Limit fat intake to less than 15 grams per day by avoiding margarine, butter, oils, mayonnaise, sauces, gravies, fried foods, peanut butter, meat, poultry, and fish. Limit fiber; avoid raw or cooked vegetables, fresh fruits (except bananas), and bran cereals. Limit caffeine and chocolate. Do not use spices or seasonings except salt. During The Next 24 Hours The patient can gradually resume a normal diet as symptoms lessen. Preventing Spread Hand washing with soap and water is the best way to prevent the spread of viruses. Caregivers should wash their hands before andafter touching the sick person. The sick person, as well as everyone in the family,should wash their hands after using the toilet and before meals. Clean the toilet after each use. People with diarrhea should not prepare food for others. If you are preparing your own foods, wash your hands before and after. Follow Up with your doctor as advised. Call your doctor if you are not improving over the next 2 to 3 days. If a stool (diarrhea) sample was taken, you may call in 2 days (or as directed) for the results. Get Prompt Medical Attention if any of the following occur: Increasing abdominal pain Continued vomiting (unable to keep liquids down) Frequent diarrhea (more than 5 times a day) Blood in vomit or stool (black or red color) Dark urine, reduced urine output, or extreme thirst Weakness, dizziness, fainting Drowsiness, confusion, stiff neck, or seizure Fever of 100.4F (38C) oral or higher, not better with fever medication New rash [place] Diet A bland diet is used for patients with an upset stomach. It consists of foods that are mild and easy to digest. It is better to eat small frequent meals rather than three large meals a day. BEVERAGES OK: Fruit juices, non-caffeinated teas and coffee, non-carbonated ramirez AVOID: Carbonated beverage, caffeinated tea and coffee, all alcoholic beverages BREAD OK: Refined white, wheat or rye bread, nusrat or soda crackers, Cinthia toast, plain rolls, bagels AVOID: Whole-grain bread CEREAL OK: Refined cereals: cooked or ready to eat AVOID: Whole grain cereals and granola, or those containing bran, seeds or nuts DESSERTS OK: Peanut butter and all others except those to "avoid" AVOID: Chocolate, cocoa, coconut, popcorn, nuts, seeds, jam, marmalade FRUITS OK: Canned, cooked, frozen or fresh fruits without seeds or tough skin AVOID: Olives, skin and seeds of fruit MEATS OK: All fresh or preserved meat, fish and fowl AVOID: Any that are prepared with those spices to "avoid" CHEESE & EGGS OK: Eggs, cottage cheese, cream cheese, other cheeses AVOID: All cheeses made with those spices to "avoid" POTATOES & PASTA OK: Potato, rice, macaroni, noodles, spaghetti AVOID: None SOUPS OK: All soups without heavy seasoning AVOID: Soups made with those spices to "avoid" VEGETABLES OK: Canned, cooked, fresh or frozen mildly flavored vegetables without seeds, skins or coarse fiber AVOID: Vegetables prepared with those spices to "avoid"; skin and seeds of vegetables and those with coarse fiber SPICES OK: Salt, lemon and aniak juice, vinegar, all extracts, anthony, cinnamon, thyme, mace, allspice, paprika AVOID: [place] powder, cloves, pepper, seed spices, garlic, gravy pickles, highly seasoned salad dressings How To Quit Smoking Smoking is one of the hardest habits to break. About half of all those who have ever smoked have been able to quit, and most of those (about 70%) who still smoke want to quit. Here are some of the best ways to stop smoking. Keep Trying: It takes most smokers about 8 tries before they are finally able to fully quit. So, the more often you try and fail, the better your chance of quitting the next time! So, don't give up! Go Cold Foley: Most ex-smokers quit cold turkey. Trying to cut back gradually doesn't seem to work as well, perhaps because it continues the smoking habit. Also, it is possible to fool yourself by inhaling more while smoking fewer cigarettes. This results in the same amount of nicotine in your body! Get Support: Support programs can make an important difference, especially for the heavy smoker. These groups offer lectures, methods to change your behavior and peer support. Call the free national Quitline for more information. 009-SAXN-XPY (689-192-9400). Low-cost or free programs are offered by many hospitals, local chapters of the [place] [employer] (932-333-5941) and the [employer] (768-107-0418). Support at home is important too. Non-smokers can help by offering praise and encouragement. If the smoker fails to quit, encourage them to try again! Eago-Amf-Cgppmmu Medicines: For those who can't quit on their own, Nicotine Replacement Therapy (NRT) may make quitting much easier. Certain aids such as the nicotine patch, gum and lozenge are available without a prescription. However, it is best to use these under the guidance of your doctor. The skin patch provides a steady supply of nicotine to the body. Nicotine gum and lozenge gives temporary bursts of low levels of nicotine. Both methods take the edge off the craving for cigarettes. WARNING: If you feel symptoms of nicotine overdose, such as nausea, vomiting, dizziness, weakness, or fast heartbeat, stop using these and see your doctor. Prescription Medicines: After evaluating your smoking patterns and prior attempts at quitting, your doctor may offer a prescription medicine such as bupropion (Zyban, Wellbutrin), varenicline (Chantix, Champix), a niocotine inhaler or nasal spray. Each has its unique advantage and side effects which your doctor can review with you. Health Benefits Of Quitting: The benefits of quitting start right away and keep improving the longer you go without smokin minutes: blood pressure and pulse return to normal 8 hours: oxygen levels return to normal 2 days: ability to smell and taste begins to improve as damaged nerves start to regrow 2-3 weeks: circulation and lung function improves 1-9 months: decreased cough, congestion and shortness of breath; less tired 1 year: risk of heart attack decreases by half 5 years: risk of lung cancer decreases by half; risk of stroke becomes the same as a non-smoker For information about how to quit smoking, visit the following links: National Cancer [place] , Clearing the Air, Quit Smoking Today - an online booklet. http://www.smokefree.gov/pubs/clearing_the_air.pdf Smokefree.gov http://smokefree.gov/ QuitNet http://www.quitnet.com/ Ondansetron Oral disintegrating tablet What is this medicine? ONDANSETRON (on ROXIE se dayna) is used to treat nausea and vomiting caused by chemotherapy. It is also used to prevent or treat nausea and vomiting after surgery. How should I use this medicine? These tablets are made to dissolve in the mouth. Do not try to push the tablet through the foil backing. With dry hands, peel away the foil backing and gently remove the tablet. Place the tablet in the mouth and allow it to dissolve, then swallow. While you may take these tablets with water, it is not necessary to do so. Talk to your headstart teacher regarding the use of this medicine in children. Special care may be needed. What side effects may I notice from receiving this medicine? Side effects that you should report to your doctor or health wound care center consultant as soon as possible: allergic reactions like skin rash, itching or hives, swelling of the face, lips, or tongue breathing problems dizziness fast or irregular heartbeat feeling faint or lightheaded, falls fever and chills swelling of the hands and feet tightness in the chest Side effects that usually do not require medical attention (report to your doctor or health wound care center consultant if they continue or are bothersome): constipation or diarrhea headache What may interact with this medicine? Do not take this medicine with any of the following medications: -apomorphine -cisapride -dofetilide -dronedarone -pimozide -thioridazine -ziprasidone This medicine may also interact with the following medications: -carbamazepine -phenytoin -rifampicin -tramadol -other medicines that prolong the QT interval (cause an abnormal heart rhythm) What if I miss a dose? If you miss a dose, take it as soon as you can. If it is almost time for your next dose, take only that dose. Do not take double or extra doses. Where should I keep my medicine? Keep out of the reach of children. Store between 2 and 30 degrees C (36 and 86 degrees F). Throw away any unused medicine after the expiration date. What should I tell my health care provider before I take this medicine? They need to know if you have any of these conditions: heart disease history of irregular heartbeat liver disease low levels of magnesium or potassium in the blood an unusual or allergic reaction to ondansetron, granisetron, other medicines, foods, dyes, or preservatives or trying to get breast-feeding What should I watch for while using this medicine? Check with your doctor or health wound care center consultant as soon as you can if you have any sign of an allergic reaction. Promethazine Hydrochloride Rectal suppository What is this medicine? PROMETHAZINE (proe METH a zeen) is an antihistamine. It is used to treat allergic reactions and to treat or prevent nausea and vomiting from illness or motion sickness. It is also used to make you sleep before surgery, and to help treat pain or nausea after surgery. How should I use this medicine? This medicine is for rectal use only. Do not take by mouth. Wash your hands before and after use. Take off the foil wrapping. Wet the tip of the suppository with cold tap water to make it easier to use. Lie on your side with your lower leg straightened out and your upper leg bent forward toward your stomach. Lift upper buttock to expose the rectal area. Apply gentle pressure to insert the suppository completely into the rectum, pointed end first. Hold buttocks together for a few seconds. Remain lying down for about 15 minutes to avoid having the suppository come out. Do not use more often than directed. Talk to your headstart teacher regarding the use of this medicine in children. Special care may be needed. This medicine should not be given to infants and children younger than 2 years old. What side effects may I notice from receiving this medicine? Side effects that you should report to your doctor or health wound care center consultant as soon as possible: blurred vision irregular heartbeat, palpitations or chest pain muscle or facial twitches pain or difficulty passing urine seizures skin rash slowed or shallow breathing unusual bleeding or bruising yellowing of the eyes or skin Side effects that usually do not require medical attention (report to your doctor or health wound care center consultant if they continue or are bothersome): headache nightmares, agitation, nervousness, excitability, not able to sleep (these are more likely in children) stuffy nose What may interact with this medicine? Do not take this medicine with any of the following medications: medicines called MAO Inhibitors like Nardil, Parnate, Marplan, Eldepryl other phenothiazines like trimethobenzamide This medicine may also interact with the following medications: barbiturates such as phenobarbital bromocriptine certain antidepressants certain antihistamines used in allergy or cold medicines epinephrine levodopa medicines for sleep medicines for mental problems and psychotic disturbances medicines for movement abnormalities as in Parkinson's disease, or for gastrointestinal problems muscle relaxants prescription pain medicines What if I miss a dose? If you miss a dose, use it as soon as you can. If it is almost time for your next dose, use only that dose. Do not use double doses. Where should I keep my medicine? Keep out of the reach of children. Store in a refrigerator between 2 and 8 degrees C (36 and 46 degrees F). Throw away any unused medicine after the expiration date. What should I tell my health care provider before I take this medicine? They need to know if you have any of these conditions: glaucoma high blood pressure or heart disease kidney disease liver disease lung or breathing disease, like asthma prostate trouble pain or difficulty passing urine seizures an unusual or allergic reaction to promethazine or phenothiazines, other medicines, foods, dyes, or preservatives or trying to get breast-feeding What should I watch for while using this medicine? Tell your doctor or health wound care center consultant if your symptoms do not start to get better in 1 to 2 days. You may get drowsy or dizzy. Do not drive, use machinery, or do anything that needs mental alertness until you know how this medicine affects you. To reduce the risk of dizzy or fainting spells, do not stand or sit up quickly, especially if you are an older patient. Alcohol may increase dizziness and drowsiness. Avoid alcoholic drinks. Your mouth may get dry. Chewing sugarless gum or sucking hard candy, and drinking plenty of water may help. Contact your doctor if the problem does not go away or is severe. This medicine may cause dry eyes and blurred vision. If you wear contact lenses you may feel some discomfort. Lubricating drops may help. See your eye doctor if the problem does not go away or is severe. This medicine can make you more sensitive to the sun. Keep out of the sun. If you cannot avoid being in the sun, wear protective clothing and use sunscreen. Do not use sun lamps or tanning beds/booths. If you are diabetic, check your blood-sugar levels regularly. Omeprazole Magnesium Gastro-resistant tablet What is this medicine? OMEPRAZOLE (oh ME pray zol) prevents the production of acid in the stomach. It is used to treat the symptoms of heartburn. You can buy this medicine without a prescription. This product is not for long-term use, unless otherwise directed by your doctor or health wound care center consultant. How should I use this medicine? Take this medicine by mouth. Follow the directions on the product label. If you are taking this medicine without a prescription, take one tablet every day. Do not use for longer than 14 days or repeat a course of treatment more often than every 4 months unless directed by a doctor or healthcare professional. Take your dose at regular intervals every 24 hours. Swallow the tablet whole with a drink of water. Do not crush, break or chew. This medicine works best if taken on an empty stomach 30 minutes before breakfast. If you are using this medicine with the prescription of your doctor or healthcare professional, follow the directions you were given. Do not take your medicine more often than directed. Talk to your headstart teacher regarding the use of this medicine in children. Special care may be needed. What side effects may I notice from receiving this medicine? Side effects that you should report to your doctor or health wound care center consultant as soon as possible: allergic reactions like skin rash, itching or hives, swelling of the face, lips, or tongue bone, muscle or joint pain breathing problems chest pain or chest tightness dark yellow or brown urine diarrhea dizziness fast, irregular heartbeat feeling faint or lightheaded fever or sore throat muscle spasm palpitations redness, blistering, peeling or loosening of the skin, including inside the mouth seizures tremors unusual bleeding or bruising unusually weak or tired yellowing of the eyes or skin Side effects that usually do not require medical attention (Report these to your doctor or health wound care center consultant if they continue or are bothersome.): constipation dry mouth headache loose stools nausea What may interact with this medicine? Do not take this medicine with any of the following medications: atazanavir clopidogrel nelfinavir This medicine may also interact with the following medications: ampicillin certain medicines for anxiety or sleep certain medicines that treat or prevent blood clots like warfarin cyclosporine diazepam digoxin disulfiram iron salts phenytoin prescription medicine for fungal or yeast infection like itraconazole, ketoconazole, voriconazole saquinavir tacrolimus What if I miss a dose? If you miss a dose, take it as soon as you can. If it is almost time for your next dose, take only that dose. Do not take double or extra doses. Where should I keep my medicine? Keep out of the reach of children. Store at room temperature between 20 and 25 degrees C (68 and 77 degrees F). Protect from light and moisture. Throw away any unused medicine after the expiration date. What should I tell my health care provider before I take this medicine? They need to know if you have any of these conditions: black or bloody stools chest pain difficulty swallowing have had heartburn for over 3 months have heartburn with dizziness, lightheadedness or sweating liver disease stomach pain unexplained weight loss vomiting with blood wheezing an unusual or allergic reaction to omeprazole, other medicines, foods, dyes, or preservatives or trying to get breast-feeding What should I watch for while using this medicine? It can take several days before your heartburn gets better. Check with your doctor or health wound care center consultant if your condition does not start to get better, or if it gets worse. Do not treat diarrhea with over the counter products. Contact your doctor if you have diarrhea that lasts more than 2 days or if it is severe and watery. Do not treat yourself for heartburn with this medicine for more than 14 days in a row. You should only use this medicine for a 2-week treatment period once every 4 months. If your symptoms return shortly after your therapy is complete, or within the 4 month time frame, call your doctor or health wound care center consultant. You have been given the following additional information: Chest Pain, Noncardiac Bronchitis, No Antibiotic (Adult) GERD (Adult) Hematuria Gastroenteritis, Viral (6Y-Adult) Diet, [place] (Adult) Smoking Cessation Ondansetron Oral disintegrating tablet Promethazine Hydrochloride Rectal suppository Omeprazole Magnesium Gastro-resistant tablet Do not work for two days. (Electronically signed by Mehrdad Pinon DO 10/31/2016 21:34)
--- NOTE | 2016-10-31 21:35 | ED MED RECONCILIATION SUMMARY ---
Patient: MICHAELA SHARMA Medication Reconciliation Report [facility] VisitID: [id number] [address] [place] [address] 31y, M Registration Date/Time: 10/31/2016 Weight: 87.9 kg Height/Length: 71 in. BMI: 27.0 ALLERGIES: Codeine, Tramadol, Tylenol The patient's Home Medications are listed below: NONE. The source(s) of the original Home Medication information: Not obtained. The following Medications were given to the patient in the Emergency Department: Aspirin [PO] PO 325 mg, administered: 10/31/2016 6:36:00 PM IV NS IV Fluids bolus 1000 mL over 1 hour(s), administered: 10/31/2016 6:36:00 PM The following Medications were prescribed to the patient: Zofran (orally disintegrating tablets) 4 mg: take 1 orally every 8 hours as needed for nausea and vomiting. Dispense five (5). No refill. Substitution is permissible. -- Mehrdad Pinon DO Phenergan suppositories 25 mg: Insert 1 rectally every 4 to 6 hours as needed for nausea or vomiting. Dispense ten (10). No refills. Substitution is permissible. -- Mehrdad Pnion DO Prilosec 20 mg capsules: Take 1 capsule orally once daily. Dispense fifteen (15). No refills. Substitution is permissible. -- Mehrdad Pinon DO
--- NOTE | 2016-10-31 21:35 | ED MAR SUMMARY ---
..... Medication Administration Record [facility] [address] [place] [address] Patient: MICHAELA SHARMA Visit ID: [id number] 31y, M Weight: 87.9 kg Height/Length: 71 in BMI: 27 ALLERGIES: Codeine, Tramadol, Tylenol Given 18:36 10/31/2016 Joon Tobar R.N. Medication Administered: ASPIRIN [PO], Dose: 325 mg Tablets PO. Medication Ordered: Aspirin PO 325 mg (NOW). Start 18:36 10/31/2016 Joon Tobar RJulia, Stop 19:58 10/31/2016 Magy Sheldon, Medication Administered: IV NS (SALINE), Dose: IV Fluids, Bolus: 1000 mL over 1 hour(s), Dispensed: 1000 mL bag, Site: #1 right AC. Medication Ordered: IV NS : initial bolus 1000 mL (1000 mL/hr), then 500 mL/hr for X2 (NOW).
--- NOTE | 2016-10-31 21:35 | ED MAR SUMMARY ---
..... Medication Administration Record Merged With [facility] [address] [place] [address] Patient: MICHAELA SHARMA Visit ID: [id number] 31y, M Weight: 87.9 kg Height/Length: 71 in BMI: 27 ALLERGIES: Codeine, Tramadol, Tylenol Given 18:36 10/31/2016 Joon Tobar R.N. Medication Administered: ASPIRIN [PO], Dose: 325 mg Tablets PO. Medication Ordered: Aspirin PO 325 mg (NOW). Start 18:36 10/31/2016 Joon Tobar RJulia, Stop 19:58 10/31/2016 Magy Sheldon, Medication Administered: IV NS (SALINE), Dose: IV Fluids, Bolus: 1000 mL over 1 hour(s), Dispensed: 1000 mL bag, Site: #1 right AC. Medication Ordered: IV NS : initial bolus 1000 mL (1000 mL/hr), then 500 mL/hr for X2 (NOW).
--- NOTE | 2016-10-31 21:35 | ED MED RECONCILIATION SUMMARY ---
Patient: MICHAELA SHARMA Medication Reconciliation Report [facility] VisitID: [id number] [address] [place] [address] 31y, M Registration Date/Time: 10/31/2016 Weight: 87.9 kg Height/Length: 71 in. BMI: 27.0 ALLERGIES: Codeine, Tramadol, Tylenol The patient's Home Medications are listed below: NONE. The source(s) of the original Home Medication information: Not obtained. The following Medications were given to the patient in the Emergency Department: Aspirin [PO] PO 325 mg, administered: 10/31/2016 6:36:00 PM IV NS IV Fluids bolus 1000 mL over 1 hour(s), administered: 10/31/2016 6:36:00 PM The following Medications were prescribed to the patient: Zofran (orally disintegrating tablets) 4 mg: take 1 orally every 8 hours as needed for nausea and vomiting. Dispense five (5). No refill. Substitution is permissible. -- Mehrdad Pinon DO Phenergan suppositories 25 mg: Insert 1 rectally every 4 to 6 hours as needed for nausea or vomiting. Dispense ten (10). No refills. Substitution is permissible. -- Mehrdad Pinon DO Prilosec 20 mg capsules: Take 1 capsule orally once daily. Dispense fifteen (15). No refills. Substitution is permissible. -- Mehrdad Pinon DO
== END 2016-10-31 20:10 | disposition home or self-care (01) ==
LOC: ED SRH 18:20
DX: R07.89 Other chest pain (principal); R31.29 Other microscopic hematuria; R11.2 Nausea with vomiting, unspecified; J20.8 Acute bronchitis due to other specified organisms; Z88.5 Allergy status to narcotic agent; Z88.6 Allergy status to analgesic agent
CPT/HCPCS: 90004; 90100; 90616; 91320; 91556; 92530; 92610; 92720; 94060; 95059

== ENCOUNTER 2016-11-04 12:28 | Emergency (ER) | payer OTHER ==
--- NOTE | 2016-11-04 13:02 | DIAGNOSTIC IMAGING REPORT ---
PROCEDURE: XR CHEST 2 VIEW INDICATION: CHEST PAIN TECHNIQUE: PA and lateral views. COMPARISON: 10/31/2016 chest FINDINGS: Lungs are clear. Heart and mediastinum are normal. Thorax is normal. IMPRESSION: 1. Negative chest.
--- NOTE | 2016-11-04 13:21 | ED NURSING NOTES ---
Clinical Report - Nurses [facility] [place] [address] 11/04/2016 12:29 Patient: MICHAELA SHARMA TRIAGE Triage time 12:35 Nov 04 2016. Alert. No acute distress. SEPSIS SCREEN: Sepsis Screen. Negative (no infection suspected/documented). ANASTASIA COMA SCORE: Anastasia Coma Scale: 15- eyes open spontaneously (4); best verbal response- oriented x 4 (5); best motor response- obeys commands (6). --12:39 Isabela Ernandez R.N. 12:34 11/04/16. BP: 128/88. HR: 89. RR: 17. O2 saturation: 98%. Temp: 98.6 F. Pain level now: 02/28. --12:39 Isabela Ernandez R.N. Chief Complaint: (chest wall pain). --13:44 Maura Cardona R.N. Weight: 86.1 kg stated. Height/Length: 70 inches Per Patient. BMI: 27.2. --12:36 Isabela Ernandez R.N. Medications None. --12:36 Isabela Ernandez R.N. Medication/allergy information source: the patient. --12:39 Isabela Ernandez R.N. Allergies Codeine. Tramadol. Tylenol. --12:36 Isabela Ernandez R.N. History Arrived by private vehicle. This is a recurrent problem. (pt was seen here wednesday for cough, was given "nausea meds, I need something for pain" c/o pain with coughing- pt hasn't taken any ibuprofen "cause I don't have any"). He has had a cough. SOCIAL HX: Heavy tobacco smoker- less than 1 pack per day. No alcohol use or drug use. No infectious disease exposure. ABUSE ASSESSMENT: No report of abuse. SELF HARM ASSESSMENT: A self harm assessment was performed. The patient answered "no" to the question "Have you recently felt down, depressed, or hopeless?", "Have you noticed less interest or pleasure in doing things?", "Do you have thoughts of harming or killing yourself?", "Are you here because you tried to hurt yourself?", "Have you ever tried to hurt yourself before today?", "Have you recently had thoughts about harming or killing others?" and "Do you have any dangerous items in your possession?". FALL RISK ASSESSMENT: Fall risk assessment completed. No fall risk identified. NUTRITIONAL RISK ASSESSMENT: The nutritional risk assessment revealed no deficiencies. FUNCTIONAL ASSESSMENT: Functional assessment: no impairments noted. LEARNING NEEDS ASSESSMENT: The learning needs assessment revealed no barriers. --12:39 Isabela Ernandez R.N. PROBLEMS: Hematuria. Contusion. Drug Rash. Dental Pain. Dental Caries. Constipation. UTI - Urinary Tract Infection. Abdominal Pain. --12:37 Isabela Ernandez R.N. Vomiting [RuleOut]. Chest Pain of GI Origin [RuleOut]. Atypical Chest Pain [RuleOut]. Bronchitis [RuleOut]. --12:37 PageIsabela Fischer R.N. Interventions ID and allergy band on patient. To treatment room. --12:39 Isabela Ernandez R.N. PHYSICAL ASSESSMENT Ambulatory to room. Patient gowned. GENERAL / NEURO / PSYCH: Alert. Oriented X 4. Appears in no acute distress. HEENT: Pupils equal, round and reactive to light. RESPIRATORY: Respirations not labored. CVS: Capillary refill less than 2 seconds. GI / : Abdomen soft. SKIN: Skin intact. Skin is warm and dry. Normal skin turgor. --12:40 Isabela Ernandez R.N. NURSING PROGRESS NOTES Patient gowned. Head of bed elevated. Patient identifiers checked. Call light placed in reach. Side rails up x 1. Bed placed in lowest position. Brakes of bed on. Patient ready for evaluation- chart flagged. Patient waiting for evaluation. --12:40 Isabela Ernandez R.N. EKG time: (9068). EKG was performed by a tech and shown to the ED physician. --12:50 Isabela Ernandez R.N. 12:50 11/04/2016 Toradol (Ketorolac Tromethamine) IM 60 mg given. Given in the left gluteus melissa. Confirmed 5 rights. --13:05 Maura Cardona R.N. 12:52 11/04/16. Patient walked to [facility] with tech. --12:52 Maura Cardona R.N. ( called [facility] in [place] to schedule appt. for pt. [phone]). --13:05 Ana Rosa Jacobsen, ER Tech1. DISPOSITION / DISCHARGE Departure time: 1341. Condition at departure: improved. No learning barriers present. Discharge instructions provided and reviewed with the patient. Reviewed medication(s) information. Prescription(s) given to the patient. Patient verbalized understanding. Written instructions provided. The patient was discharged home. He left the Emergency Department ambulatory and via private vehicle. FALL RISK ASSESSMENT: Fall risk assessment completed. No fall risk identified. --13:44 Maura Cardona R.N. 13:41 11/04/16. HR: 87. RR: 18. O2 saturation: 99%. Pain level now: 12/28. --13:44 Maura Cardona R.N. 13:41 11/04/16. BP: unable to obtain. --13:44 Maura Cardona R.N. Locked/Released at 11/04/2016 13:56 by Maura Cardona R.N.
--- NOTE | 2016-11-04 13:21 | ED ORDER SUMMARY ---
..... Patient: MICHAELA SHARMA OrderSheet [facility] VisitID: [id number] [address] [place] [address] 31y, M Registration Date/Time: 11/04/2016 ORDER SHEET Weight: 86.1 kg (stated) Allergies: Codeine, Tramadol, Tylenol GENERAL ORDERS: Chest 2V Urgent (12:40 11/04/2016 [facility]) (Ack 12:41 [facility] - ER Stat (12:40 11/04/2016 [facility]) (Ack 12:41 Alicia) (13:05 LNations ER Tech1) MEDICATION ORDERS: Toradol IM 60 mg (NOW) (12:45 11/04/2016 [facility]) (Ack 12:52 LSullivan R.N.) (13:05 LSullivan R.N.) IV FLUIDS: ORDER SHEET NOTES: [Electronically signed by Maura Cardona R.N. (13:56 11/04/2016)] [Electronically signed by Mehrdad Pinon DO (20:37 11/04/2016)] [Electronically locked/signed by Maura Cardona R.N. (13:56 11/04/2016)]
--- NOTE | 2016-11-04 13:21 | ED NURSING NOTES ---
Clinical Report - Nurses [facility] [place] [address] 11/04/2016 12:29 Patient: MICHAELA SHARMA TRIAGE Triage time 12:35 Nov 04 2016. Alert. No acute distress. SEPSIS SCREEN: Sepsis Screen. Negative (no infection suspected/documented). ANASTASIA COMA SCORE: Anastasia Coma Scale: 15- eyes open spontaneously (4); best verbal response- oriented x 4 (5); best motor response- obeys commands (6). --12:39 Isabela Ernandez R.N. 12:34 11/04/16. BP: 128/88. HR: 89. RR: 17. O2 saturation: 98%. Temp: 98.6 F. Pain level now: 02/28. --12:39 Isabela Ernandez R.N. Chief Complaint: (chest wall pain). --13:44 Maura Cardona R.N. Weight: 86.1 kg stated. Height/Length: 70 inches Per Patient. BMI: 27.2. --12:36 Isabela Ernandez R.N. Medications None. --12:36 Isabela Ernandez R.N. Medication/allergy information source: the patient. --12:39 Isabela Ernandez R.N. Allergies Codeine. Tramadol. Tylenol. --12:36 Isabela Ernandez R.N. History Arrived by private vehicle. This is a recurrent problem. (pt was seen here wednesday for cough, was given "nausea meds, I need something for pain" c/o pain with coughing- pt hasn't taken any ibuprofen "cause I don't have any"). He has had a cough. SOCIAL HX: Heavy tobacco smoker- less than 1 pack per day. No alcohol use or drug use. No infectious disease exposure. ABUSE ASSESSMENT: No report of abuse. SELF HARM ASSESSMENT: A self harm assessment was performed. The patient answered "no" to the question "Have you recently felt down, depressed, or hopeless?", "Have you noticed less interest or pleasure in doing things?", "Do you have thoughts of harming or killing yourself?", "Are you here because you tried to hurt yourself?", "Have you ever tried to hurt yourself before today?", "Have you recently had thoughts about harming or killing others?" and "Do you have any dangerous items in your possession?". FALL RISK ASSESSMENT: Fall risk assessment completed. No fall risk identified. NUTRITIONAL RISK ASSESSMENT: The nutritional risk assessment revealed no deficiencies. FUNCTIONAL ASSESSMENT: Functional assessment: no impairments noted. LEARNING NEEDS ASSESSMENT: The learning needs assessment revealed no barriers. --12:39 Isabela Ernandez R.N. PROBLEMS: Hematuria. Contusion. Drug Rash. Dental Pain. Dental Caries. Constipation. UTI - Urinary Tract Infection. Abdominal Pain. --12:37 Isabela Ernandez R.N. Vomiting [RuleOut]. Chest Pain of GI Origin [RuleOut]. Atypical Chest Pain [RuleOut]. Bronchitis [RuleOut]. --12:37 PageIsabela Fischer R.N. Interventions ID and allergy band on patient. To treatment room. --12:39 Isabela Ernandez R.N. PHYSICAL ASSESSMENT Ambulatory to room. Patient gowned. GENERAL / NEURO / PSYCH: Alert. Oriented X 4. Appears in no acute distress. HEENT: Pupils equal, round and reactive to light. RESPIRATORY: Respirations not labored. CVS: Capillary refill less than 2 seconds. GI / : Abdomen soft. SKIN: Skin intact. Skin is warm and dry. Normal skin turgor. --12:40 Isabela Ernandez R.N. NURSING PROGRESS NOTES Patient gowned. Head of bed elevated. Patient identifiers checked. Call light placed in reach. Side rails up x 1. Bed placed in lowest position. Brakes of bed on. Patient ready for evaluation- chart flagged. Patient waiting for evaluation. --12:40 Isabela Ernandez R.N. EKG time: (4008). EKG was performed by a tech and shown to the ED physician. --12:50 Isabela Ernandez R.N. 12:50 11/04/2016 Toradol (Ketorolac Tromethamine) IM 60 mg given. Given in the left gluteus melissa. Confirmed 5 rights. --13:05 Maura Cardona R.N. 12:52 11/04/16. Patient walked to [facility] with tech. --12:52 Maura Cardona R.N. ( called [facility] in [place] to schedule appt. for pt. [phone]). --13:05 Ana Rosa Jacobsen, ER Tech1. DISPOSITION / DISCHARGE Departure time: 1341. Condition at departure: improved. No learning barriers present. Discharge instructions provided and reviewed with the patient. Reviewed medication(s) information. Prescription(s) given to the patient. Patient verbalized understanding. Written instructions provided. The patient was discharged home. He left the Emergency Department ambulatory and via private vehicle. FALL RISK ASSESSMENT: Fall risk assessment completed. No fall risk identified. --13:44 Maura Cardona R.N. 13:41 11/04/16. HR: 87. RR: 18. O2 saturation: 99%. Pain level now: 12/28. --13:44 Maura Cardona R.N. 13:41 11/04/16. BP: unable to obtain. --13:44 Maura Cardona R.N. Locked/Released at 11/04/2016 13:56 by Maura Cardona R.N.
--- NOTE | 2016-11-04 13:21 | ED CLINICAL REPORT ---
Clinical Report - Physicians/Mid Levels [facility] [address] [place] [place] [address] 11/04/2016 12:29 Patient: MICHAELA SHARMA Time Seen: 12:33. Arrived- By private vehicle. Historian- patient. HISTORY OF PRESENT ILLNESS Chief Complaint: CHEST PAIN. It is described as dull and "pain". Quality not described as well localized and it is described as located in other area (lower sternal and chondrosternal junctions bilaterally). No radiation. This started about 1 week ago and is still present. It was gradual in onset and has been waxing/waning. Onset during light activity. At its maximum, severity described as moderate. When seen in the E.D., severity described as moderate. Modifying factors- worsened by cough. Relieved by rest. No nausea, vomiting, difficulty breathing or diaphoresis. Similar symptoms previously: Recent medical care: The patient was seen recently at this facility in the emergency department. Seen for similar symptoms. ( Microscopic hematuria Vomiting with nausea. No dehydration. Atypical chest pain .12 lead EKG performed. Acute viral bronchitis. Probable chest pain of GI origin (due to esophagitis).). REVIEW OF SYSTEMS No fever, chills, pedal edema, calf pain or headache. No sore throat, blurred vision, abdominal pain, black stools or difficulty with urination. No skin rash, enlarged lymph nodes, joint pain or bloody stools. The patient has had a cough. All systems otherwise negative, except as recorded above. PAST HISTORY PROBLEMS: Drug Rash. Dental Pain. Dental Caries. Constipation. UTI - Urinary Tract Infection. Abdominal Pain. SURGERIES: Dental Surgery. Medications: None. Allergies: Codeine. Tramadol. Tylenol. SOCIAL HISTORY Smoker- current status unknown. No alcohol use or drug use. ADDITIONAL NOTES The nursing notes have been reviewed. PHYSICAL EXAM Vital Signs: 11/04/2016 12:34 BP: 128/88. HR: 89. RR: 17. O2 saturation: 98%. Temp: 98.6 F. Pain level now: 9/10. Appearance: Alert. Oriented X3. No acute distress. Eyes: Pupils equal, round and reactive to light. Eyes normal inspection. No scleral icterus or pale conjunctivae. ENT: Pharynx normal. No pharyngeal erythema or tonsillar exudate. The mucous membranes are not dry. Neck: Normal inspection. Neck supple. CVS: Normal heart rate and rhythm. Heart sounds normal. Pulses normal. Respiratory: No respiratory distress. Chest pain reproducible with palpation of the costal cartilage, sternum and anterior chest wall. Breath sounds normal. Abdomen: Soft and nontender. No organomegaly. No mass. Femoral pulses equal. Back: Normal external inspection. No CVA tenderness. Skin: Skin warm and dry. Normal skin color. No rash. Normal skin turgor. Extremities: Extremities exhibit normal ROM. No lower extremity edema. Neuro: Oriented X 3. No motor deficit. No sensory deficit. LABS, X-RAYS, AND EKG EKG: EKG time: (12:48). Normal sinus rhythm. Rate: 100. Normal P waves. Normal CARLIE. Normal QRS complex. Normal axis. Normal ST and T waves. EKG unchanged when compared with prior EKG. The study has been interpreted contemporaneously by me. The EKG appears to be a good tracing. Chest X-ray: No acute disease. Normal lung markings present. Normal heart size. Mediastinum normal. Great vessels normal. No infiltrate. Views: PA and lateral. Technique: good. The X-rays were interpreted contemporaneously by me. A comparison with prior films reveals that the findings are unchanged. Laboratory Tests: LABS DONE AT [facility] ED 10/31/2016: UA-Culture if indicated: (JACQUELYN: 10/31/2016 19:40) ( MsgRcvd 10/31/2016 19:58) Final results Test Result Flag (Reference) URINE COLOR YELLOW URINE APPEARANCE CLEAR URINE GLUCOSE NEGATIVE (NEGATIVE) URINE BILIRUBIN NEGATIVE (NEGATIVE) URINE KETONE NEGATIVE (NEGATIVE) URINE SPECIFIC GRAVITY 1.020 (1.010-1.030) URINE PH 6.5 (5.0-8.0) URINE PROTEIN NEGATIVE (NEGATIVE) URINE UROBILINOGEN 1.0 EU/dL (0.2-1.0) URINE NITRITE NEGATIVE (NEGATIVE) URINE BLOOD NEGATIVE (NEGATIVE) URINE LEUK ESTERASE NEGATIVE (NEGATIVE) URINE RBC 3-5 rbc/hpf (0-1) URINE WBC 3-5 wbc/hpf (0-1) URINE EPITHELIAL CELLS 1-3 EPI/hpf (0-5) URINE BACTERIA NONE SEEN (NONE SEEN) URINE COMMENT CULT NOT INDICATED 1+ MUCUS CBC w Diff: (JACQUELYN: 10/31/2016 18:25) ( [facility] 10/31/2016 18:51) Final results Test Result Flag (Reference) WHITE BLOOD COUNT 10.4 K/uL (4.5-11.5) RED BLOOD COUNT 5.17 M/uL (4.50-5.90) HEMOGLOBIN 15.0 gm/dL (13.5-17.5) HEMATOCRIT 45.9 % (41.0-53.0) MEAN CELL VOLUME 89 fL (80-100) MEAN CORPUSCULAR HGB 29 pg (26-34) MEAN CORPUSCULAR HGB CONC 33 g/dL (31-37) RED CELL DISTRIBUTION WIDTH 12.4 % (11.6-14.8) PLATELET COUNT 310 K/uL (150-400) NEUTROPHIL % 53.9 % (50-75) LYMPH % 34.3 % (25-40) MONO % 9.9 % (3-14) EOSINOPHIL % 1.4 % (0-4) BASOPHIL % 0.5 % (0-2) PT with INR: (JACQUELYN: 10/31/2016 18:25) ( [facility] 10/31/2016 18:58) Final results Test Result Flag (Reference) INR 1.0 (0.8-1.2) D-DIMER QUANTITATIVE < 0.27 L ug/mLFEU (0.27-0.52) BNP: (JACQUELYN: 10/31/2016 18:25) ( [facility] 10/31/2016 19:10) Final results Test Result Flag (Reference) B-TYPE NATRIURETIC PEPTIDE 16.6 pg/ml (5-100) CHEM 13 PANEL: (JACQUELYN: 10/31/2016 18:25) ( [facility] 10/31/2016 19:27) Final results Test Result Flag (Reference) GLUCOSE 89 mg/dL (70-110) BUN 7 mg/dL (7-18) CREATININE 1.1 mg/dL (0.6-1.3) SODIUM 148 H mmol/L (136-145) POTASSIUM 3.8 mmol/L (3.5-5.1) CHLORIDE 110 H mmol/L (98-107) CARBON DIOXIDE 28 mmol/L (21-32) CALCIUM 8.6 mg/dL (8.5-10.1) TOTAL PROTEIN 7.0 g/dL (6.4-8.2) ALBUMIN 3.7 g/dL (3.3-5.0) BILIRUBIN, TOTAL 0.2 mg/dL (0.0-1.0) ALKALINE PHOSPHATASE 83 U/L (46-116) AST (SGOT) 22 U/L (15-37) ALT (SGPT) 28 U/L (12-78) MAGNESIUM 2.3 mg/dL (1.8-2.4) AMYLASE 43 U/L (25-115) CPK 131 U/L (24-260) TROPONIN I <0.05 ng/mL (0.00-1.5) TROPONIN REFERENCE RANGE: <0.1 NEGATIVE 0.1-1.5 INDETERMINANT >1.5 POSITIVE . Pulse Oximetry: 11/04/2016 12:34 O2 saturation: 98%. (FIO2 - room air). Interpretation: normal. PROGRESS AND PROCEDURES Course of Care: Toradol 60mg IM given. Patient is stable. Physical exam findings are improved. Symptoms much better. Patient/family counseled. Old ED records reviewed. Disposition: Discharged. Condition: stable and improved. CLINICAL IMPRESSION Chest wall pain .12 lead EKG performed. INSTRUCTIONS Do not work for three days. Drink plenty of fluids. Do not smoke. Seek medical help to quit smoking. No alcohol. Warnings: Further evaluation is necessary. It is very important to follow up with a physician. GENERAL WARNINGS: Return or contact your physician immediately if your condition worsens or changes unexpectedly, if not improving as expected, or if other problems arise. Prescription Medications: Ibuprofen 600mg tablets: take 1 tablet orally every 8 hours as needed for pain. Dispense thirty (30). No refills. Follow-up: Follow up with your doctor [facility] in about two days. (Electronically signed by Mehrdad Pinon DO 11/04/2016 20:37)
--- NOTE | 2016-11-04 13:21 | ED ORDER SUMMARY ---
..... Patient: MICHAELA SHARMA OrderSheet [facility] VisitID: [id number] [address] [place] [address] 31y, M Registration Date/Time: 11/04/2016 ORDER SHEET Weight: 86.1 kg (stated) Allergies: Codeine, Tramadol, Tylenol GENERAL ORDERS: Chest 2V Urgent (12:40 11/04/2016 [facility]) [facility]Ack 12:41 [facility] - [facility] Stat (12:40 11/04/2016 [facility]) (Ack 12:41 Alicia) (13:05 LNations ER Tech1) MEDICATION ORDERS: Toradol IM 60 mg (NOW) (12:45 11/04/2016 [facility]) (Ack 12:52 LSullivan R.N.) (13:05 LSullivan R.N.) IV FLUIDS: ORDER SHEET NOTES: [Electronically signed by Maura Cardona R.N. (13:56 11/04/2016)] [Electronically signed by Mehrdad Pinon DO (20:37 11/04/2016)] [Electronically locked/signed by Maura Cardona R.N. (13:56 11/04/2016)]
--- NOTE | 2016-11-04 20:37 | ED DISCHARGE INSTRUCTIONS ---
Patient: MICHAELA SHARMA General Instructions [facility] VisitID: [id number] [place] [address] 31y, M Registration Date/Time: 11/04/2016 Chest wall pain .12 lead EKG performed. INSTRUCTIONS Do not work for three days. Drink plenty of fluids. Do not smoke. Seek medical help to quit smoking. No alcohol. Warnings: Further evaluation is necessary. It is very important to follow up with a physician. GENERAL WARNINGS: Return or contact your physician immediately if your condition worsens or changes unexpectedly, if not improving as expected, or if other problems arise. Prescription Medications: Ibuprofen 600mg tablets: take 1 tablet orally every 8 hours as needed for pain. Dispense thirty (30). No refills. Follow-up: Follow up with your doctor [facility] in about two days. ADDITIONAL INFORMATION Chest Strain A strain of the chest is due to stretching and tearing of the muscle fibers between the ribs. This may occur as a result of severe coughing, strenuous lifting or twisting injuries of the upper back. This usually causes increased pain with movement or deep breathing. This may take a few days to a few weeks to heal. Home Care: Rest. Avoid heavy lifting or strenuous exertion. Avoid any activity that causes pain. If you have a severe cough, use a cough syrup such as Robitussin DM (containing dextromethorphan) unless another cough medicine was prescribed. You may use acetaminophen (Tylenol) or ibuprofen (Motrin, Advil) to control pain, unless another medicine was prescribed. [ NOTE: If you have chronic liver or kidney disease or ever had a stomach ulcer or GI bleeding, talk with your doctor before using these medicines.] Follow Up with your doctor as directed. Get Prompt Medical Attention if any of the following occur: A change in the type of pain: if it feels different, becomes more severe, lasts longer, or begins to spread into your shoulder, arm, neck, jaw or back Shortness of breath or increased pain with breathing Cough with dark colored sputum (phlegm) or blood Weakness, dizziness, or fainting Fever of 100.4F (38C) or higher, or as directed by your healthcare provider How To Quit Smoking Smoking is one of the hardest habits to break. About half of all those who have ever smoked have been able to quit, and most of those (about 70%) who still smoke want to quit. Here are some of the best ways to stop smoking. Keep Trying: It takes most smokers about 8 tries before they are finally able to fully quit. So, the more often you try and fail, the better your chance of quitting the next time! So, don't give up! Go [place]: Most ex-smokers quit cold turkey. Trying to cut back gradually doesn't seem to work as well, perhaps because it continues the smoking habit. Also, it is possible to fool yourself by inhaling more while smoking fewer cigarettes. This results in the same amount of nicotine in your body! Get Support: Support programs can make an important difference, especially for the heavy smoker. These groups offer lectures, methods to change your behavior and peer support. Call the free national Quitline for more information. 969-SRIV-UPB (813-633-2005). Low-cost or free programs are offered by many hospitals, local chapters of the [place] [employer] (913-911-5680) and the [place] [employer] (363-365-3800). Support at home is important too. Non-smokers can help by offering praise and encouragement. If the smoker fails to quit, encourage them to try again! Tign-Ypz-Xdmcqnk Medicines: For those who can't quit on their own, Nicotine Replacement Therapy (NRT) may make quitting much easier. Certain aids such as the nicotine patch, gum and lozenge are available without a prescription. However, it is best to use these under the guidance of your doctor. The skin patch provides a steady supply of nicotine to the body. Nicotine gum and lozenge gives temporary bursts of low levels of nicotine. Both methods take the edge off the craving for cigarettes. WARNING: If you feel symptoms of nicotine overdose, such as nausea, vomiting, dizziness, weakness, or fast heartbeat, stop using these and see your doctor. Prescription Medicines: After evaluating your smoking patterns and prior attempts at quitting, your doctor may offer a prescription medicine such as bupropion (Zyban, Wellbutrin), varenicline (Chantix, Champix), a niocotine inhaler or nasal spray. Each has its unique advantage and side effects which your doctor can review with you. Health Benefits Of Quitting: The benefits of quitting start right away and keep improving the longer you go without smokin minutes: blood pressure and pulse return to normal 8 hours: oxygen levels return to normal 2 days: ability to smell and taste begins to improve as damaged nerves start to regrow 2-3 weeks: circulation and lung function improves 1-9 months: decreased cough, congestion and shortness of breath; less tired 1 year: risk of heart attack decreases by half 5 years: risk of lung cancer decreases by half; risk of stroke becomes the same as a non-smoker For information about how to quit smoking, visit the following links: National [employer] [place] , Clearing the Air, Quit Smoking Today - an online booklet. http://www.smokefree.gov/pubs/clearing_the_air.pdf Smokefree.gov http://smokefree.gov/ QuitNet http://www.quitnet.com/ Ibuprofen Oral tablet What is this medicine? IBUPROFEN (eye BYOO proe fen) is a non-steroidal anti-inflammatory drug (NSAID). It is used for dental pain, fever, headaches or migraines, osteoarthritis, rheumatoid arthritis, or painful monthly periods. It can also relieve minor aches and pains caused by a cold, flu, or sore throat. How should I use this medicine? Take this medicine by mouth with a glass of water. Follow the directions on the prescription label. Take this medicine with food if your stomach gets upset. Try to not lie down for at least 10 minutes after you take the medicine. Take your medicine at regular intervals. Do not take your medicine more often than directed. A special MedGuide will be given to you by the pharmacist with each prescription and refill. Be sure to read this information carefully each time. Talk to your entertainment reporter regarding the use of this medicine in children. Special care may be needed. What side effects may I notice from receiving this medicine? Side effects that you should report to your doctor or health daytime caregiver as soon as possible: allergic reactions like skin rash, itching or hives, swelling of the face, lips, or tongue black or bloody stools, blood in the urine or in vomit breathing problems changes in vision chest pain general ill feeling or flu-like symptoms nausea or vomiting redness, blistering, peeling or loosening of the skin, including inside the mouth slurred speech or weakness on one side of the body stomach pain unexplained weight gain or swelling unusually weak or tired yellowing of eyes or skin Side effects that usually do not require medical attention (report to your doctor or health daytime caregiver if they continue or are bothersome): constipation or diarrhea dizziness gas or heartburn stomach upset What may interact with this medicine? Do not take this medicine with any of the following medications: cidofovir ketorolac methotrexate pemetrexed This medicine may also interact with the following medications: alcohol aspirin diuretics lithium other drugs for inflammation like prednisone warfarin What if I miss a dose? If you miss a dose, take it as soon as you can. If it is almost time for your next dose, take only that dose. Do not take double or extra doses. Where should I keep my medicine? Keep out of the reach of children. Store at room temperature between 15 and 30 degrees C (59 and 86 degrees F). Keep container tightly closed. Throw away any unused medicine after the expiration date. What should I tell my health care provider before I take this medicine? They need to know if you have any of these conditions: asthma cigarette smoker drink more than 3 alcohol containing drinks a day heart disease or circulation problems such as heart failure or leg edema (fluid retention) high blood pressure kidney disease liver disease stomach bleeding or ulcers an unusual or allergic reaction to ibuprofen, aspirin, other NSAIDS, other medicines, foods, dyes, or preservatives or trying to get breast-feeding What should I watch for while using this medicine? Tell your doctor or healthcare professional if your symptoms do not start to get better or if they get worse. This medicine does not prevent heart attack or stroke. In fact, this medicine may increase the chance of a heart attack or stroke. The chance may increase with longer use of this medicine and in people who have heart disease. If you take aspirin to prevent heart attack or stroke, talk with your doctor or health daytime caregiver. Do not take other medicines that contain aspirin, ibuprofen, or naproxen with this medicine. Side effects such as stomach upset, nausea, or ulcers may be more likely to occur. Many medicines available without a prescription should not be taken with this medicine. This medicine can cause ulcers and bleeding in the stomach and intestines at any time during treatment. Ulcers and bleeding can happen without warning symptoms and can cause . To reduce your risk, do not smoke cigarettes or drink alcohol while you are taking this medicine. You may get drowsy or dizzy. Do not drive, use machinery, or do anything that needs mental alertness until you know how this medicine affects you. Do not stand or sit up quickly, especially if you are an older patient. This reduces the risk of dizzy or fainting spells. This medicine can cause you to bleed more easily. Try to avoid damage to your teeth and gums when you brush or floss your teeth. You have been given the following additional information: Chest Wall Strain Smoking Cessation Ibuprofen Oral tablet Do not work for three days. (Electronically signed by Mehrdad Pinon DO 11/04/2016 20:37)
--- NOTE | 2016-11-04 20:37 | ED DISCHARGE INSTRUCTIONS ---
Patient: MICHAELA SHARMA General Instructions [facility] VisitID: [id number] [place] [address] 31y, M Registration Date/Time: 11/04/2016 Chest wall pain .12 lead EKG performed. INSTRUCTIONS Do not work for three days. Drink plenty of fluids. Do not smoke. Seek medical help to quit smoking. No alcohol. Warnings: Further evaluation is necessary. It is very important to follow up with a physician. GENERAL WARNINGS: Return or contact your physician immediately if your condition worsens or changes unexpectedly, if not improving as expected, or if other problems arise. Prescription Medications: Ibuprofen 600mg tablets: take 1 tablet orally every 8 hours as needed for pain. Dispense thirty (30). No refills. Follow-up: Follow up with your [facility] about two days. ADDITIONAL INFORMATION Chest Strain A strain of the chest is due to stretching and tearing of the muscle fibers between the ribs. This may occur as a result of severe coughing, strenuous lifting or twisting injuries of the upper back. This usually causes increased pain with movement or deep breathing. This may take a few days to a few weeks to heal. Home Care: Rest. Avoid heavy lifting or strenuous exertion. Avoid any activity that causes pain. If you have a severe cough, use a cough syrup such as Robitussin DM (containing dextromethorphan) unless another cough medicine was prescribed. You may use acetaminophen (Tylenol) or ibuprofen (Motrin, Advil) to control pain, unless another medicine was prescribed. [ NOTE: If you have chronic liver or kidney disease or ever had a stomach ulcer or GI bleeding, talk with your doctor before using these medicines.] Follow Up with your doctor as directed. Get Prompt Medical Attention if any of the following occur: A change in the type of pain: if it feels different, becomes more severe, lasts longer, or begins to spread into your shoulder, arm, neck, jaw or back Shortness of breath or increased pain with breathing Cough with dark colored sputum (phlegm) or blood Weakness, dizziness, or fainting Fever of 100.4F (38C) or higher, or as directed by your healthcare provider How To Quit Smoking Smoking is one of the hardest habits to break. About half of all those who have ever smoked have been able to quit, and most of those (about 70%) who still smoke want to quit. Here are some of the best ways to stop smoking. Keep Trying: It takes most smokers about 8 tries before they are finally able to fully quit. So, the more often you try and fail, the better your chance of quitting the next time! So, don't give up! Go Cold [place]: Most ex-smokers quit cold turkey. Trying to cut back gradually doesn't seem to work as well, perhaps because it continues the smoking habit. Also, it is possible to fool yourself by inhaling more while smoking fewer cigarettes. This results in the same amount of nicotine in your body! Get Support: Support programs can make an important difference, especially for the heavy smoker. These groups offer lectures, methods to change your behavior and peer support. Call the free national Quitline for more information. 827-SJBX-DAB (865-923-5383). Low-cost or free programs are offered by many hospitals, local chapters of the [place] [employer] (708-753-2622) and the [place] [employer] (203-400-1021). Support at home is important too. Non-smokers can help by offering praise and encouragement. If the smoker fails to quit, encourage them to try again! Jxlx-Cwm-Yyjhrsh Medicines: For those who can't quit on their own, Nicotine Replacement Therapy (NRT) may make quitting much easier. Certain aids such as the nicotine patch, gum and lozenge are available without a prescription. However, it is best to use these under the guidance of your doctor. The skin patch provides a steady supply of nicotine to the body. Nicotine gum and lozenge gives temporary bursts of low levels of nicotine. Both methods take the edge off the craving for cigarettes. WARNING: If you feel symptoms of nicotine overdose, such as nausea, vomiting, dizziness, weakness, or fast heartbeat, stop using these and see your doctor. Prescription Medicines: After evaluating your smoking patterns and prior attempts at quitting, your doctor may offer a prescription medicine such as bupropion (Zyban, Wellbutrin), varenicline (Chantix, Champix), a niocotine inhaler or nasal spray. Each has its unique advantage and side effects which your doctor can review with you. Health Benefits Of Quitting: The benefits of quitting start right away and keep improving the longer you go without smokin minutes: blood pressure and pulse return to normal 8 hours: oxygen levels return to normal 2 days: ability to smell and taste begins to improve as damaged nerves start to regrow 2-3 weeks: circulation and lung function improves 1-9 months: decreased cough, congestion and shortness of breath; less tired 1 year: risk of heart attack decreases by half 5 years: risk of lung cancer decreases by half; risk of stroke becomes the same as a non-smoker For information about how to quit smoking, visit the following links: National Cancer [place] , Clearing the Air, Quit Smoking Today - an online booklet. http://www.smokefree.gov/pubs/clearing_the_air.pdf Smokefree.gov http://smokefree.gov/ QuitNet http://www.quitnet.com/ Ibuprofen Oral tablet What is this medicine? IBUPROFEN (eye BYOO proe fen) is a non-steroidal anti-inflammatory drug (NSAID). It is used for dental pain, fever, headaches or migraines, osteoarthritis, rheumatoid arthritis, or painful monthly periods. It can also relieve minor aches and pains caused by a cold, flu, or sore throat. How should I use this medicine? Take this medicine by mouth with a glass of water. Follow the directions on the prescription label. Take this medicine with food if your stomach gets upset. Try to not lie down for at least 10 minutes after you take the medicine. Take your medicine at regular intervals. Do not take your medicine more often than directed. A special MedGuide will be given to you by the pharmacist with each prescription and refill. Be sure to read this information carefully each time. Talk to your compliance tester regarding the use of this medicine in children. Special care may be needed. What side effects may I notice from receiving this medicine? Side effects that you should report to your doctor or health health care facility administrator as soon as possible: allergic reactions like skin rash, itching or hives, swelling of the face, lips, or tongue black or bloody stools, blood in the urine or in vomit breathing problems changes in vision chest pain general ill feeling or flu-like symptoms nausea or vomiting redness, blistering, peeling or loosening of the skin, including inside the mouth slurred speech or weakness on one side of the body stomach pain unexplained weight gain or swelling unusually weak or tired yellowing of eyes or skin Side effects that usually do not require medical attention (report to your doctor or health health care facility administrator if they continue or are bothersome): constipation or diarrhea dizziness gas or heartburn stomach upset What may interact with this medicine? Do not take this medicine with any of the following medications: cidofovir ketorolac methotrexate pemetrexed This medicine may also interact with the following medications: alcohol aspirin diuretics lithium other drugs for inflammation like prednisone warfarin What if I miss a dose? If you miss a dose, take it as soon as you can. If it is almost time for your next dose, take only that dose. Do not take double or extra doses. Where should I keep my medicine? Keep out of the reach of children. Store at room temperature between 15 and 30 degrees C (59 and 86 degrees F). Keep container tightly closed. Throw away any unused medicine after the expiration date. What should I tell my health care provider before I take this medicine? They need to know if you have any of these conditions: asthma cigarette smoker drink more than 3 alcohol containing drinks a day heart disease or circulation problems such as heart failure or leg edema (fluid retention) high blood pressure kidney disease liver disease stomach bleeding or ulcers an unusual or allergic reaction to ibuprofen, aspirin, other NSAIDS, other medicines, foods, dyes, or preservatives or trying to get breast-feeding What should I watch for while using this medicine? Tell your doctor or healthcare professional if your symptoms do not start to get better or if they get worse. This medicine does not prevent heart attack or stroke. In fact, this medicine may increase the chance of a heart attack or stroke. The chance may increase with longer use of this medicine and in people who have heart disease. If you take aspirin to prevent heart attack or stroke, talk with your doctor or health health care facility administrator. Do not take other medicines that contain aspirin, ibuprofen, or naproxen with this medicine. Side effects such as stomach upset, nausea, or ulcers may be more likely to occur. Many medicines available without a prescription should not be taken with this medicine. This medicine can cause ulcers and bleeding in the stomach and intestines at any time during treatment. Ulcers and bleeding can happen without warning symptoms and can cause . To reduce your risk, do not smoke cigarettes or drink alcohol while you are taking this medicine. You may get drowsy or dizzy. Do not drive, use machinery, or do anything that needs mental alertness until you know how this medicine affects you. Do not stand or sit up quickly, especially if you are an older patient. This reduces the risk of dizzy or fainting spells. This medicine can cause you to bleed more easily. Try to avoid damage to your teeth and gums when you brush or floss your teeth. You have been given the following additional information: Chest Wall Strain Smoking Cessation Ibuprofen Oral tablet Do not work for three days. (Electronically signed by Mehrdad Pinon DO 11/04/2016 20:37)
--- NOTE | 2016-11-04 20:38 | ED MED RECONCILIATION SUMMARY ---
Patient: MICHAELA SHARMA Medication Reconciliation Report [facility] VisitID: [id number] [address] [place] [address] 31y, M Registration Date/Time: 11/04/2016 Weight: 86.1 kg Height/Length: 70 in. BMI: 27.2 ALLERGIES: Codeine, Tramadol, Tylenol The patient's Home Medications are listed below: NONE. The source(s) of the original Home Medication information: patient The following Medications were given to the patient in the Emergency Department: Toradol [IM] IM 60 mg, administered: 11/04/2016 12:50:00 PM The following Medications were prescribed to the patient: Ibuprofen 600mg tablets: take 1 tablet orally every 8 hours as needed for pain. Dispense thirty (30). No refills. -- Mehrdad Pinon, DO
--- NOTE | 2016-11-04 20:38 | ED MED RECONCILIATION SUMMARY ---
Patient: MICHAELA SHARMA Medication Reconciliation Report [facility] VisitID: [id number] [address] [place] [address] 31y, M Registration Date/Time: 11/04/2016 Weight: 86.1 kg Height/Length: 70 in. BMI: 27.2 ALLERGIES: Codeine, Tramadol, Tylenol The patient's Home Medications are listed below: NONE. The source(s) of the original Home Medication information: patient The following Medications were given to the patient in the Emergency Department: Toradol [IM] IM 60 mg, administered: 11/04/2016 12:50:00 PM The following Medications were prescribed to the patient: Ibuprofen 600mg tablets: take 1 tablet orally every 8 hours as needed for pain. Dispense thirty (30). No refills. -- Mehrdad Pinon, DO
--- NOTE | 2016-11-04 20:38 | ED MAR SUMMARY ---
..... Medication Administration Record [facility] [address] [place] [address] Patient: MICHAELA SHARMA Visit ID: [id number] 31y, M Weight: 86.1 kg Height/Length: 70 in BMI: 27.2 ALLERGIES: Codeine, Tramadol, Tylenol Given 12:50 11/04/2016 Maura Cardona RJulia Medication Administered: TORADOL [IM] (KETOROLAC TROMETHAMINE), Dose: 60 mg IM. Medication Ordered: Toradol IM 60 mg (NOW).
--- NOTE | 2016-11-04 20:38 | ED MAR SUMMARY ---
..... Medication Administration Record [facility] [address] [place] [address] Patient: MICHAELA SHARMA Visit ID: [id number] 31y, M Weight: 86.1 kg Height/Length: 70 in BMI: 27.2 ALLERGIES: Codeine, Tramadol, Tylenol Given 12:50 11/04/2016 Maura Cardona RJulia Medication Administered: TORADOL [IM] (KETOROLAC TROMETHAMINE), Dose: 60 mg IM. Medication Ordered: Toradol IM 60 mg (NOW).
== END 2016-11-04 13:41 | disposition home or self-care (01) ==
LOC: ED SRH 12:28
DX: R07.89 Other chest pain (principal); Z88.6 Allergy status to analgesic agent; Z88.5 Allergy status to narcotic agent

== ENCOUNTER 2016-12-06 17:11 | Emergency (ER) | payer OTHER ==
--- NOTE | 2016-12-06 19:23 | ED CLINICAL REPORT ---
Clinical Report - Physicians/Mid Levels [facility] [address] [place] [address] 12/06/2016 17:10 Patient: MICHAELA SHARMA Time Seen: 19:04; upon arrival, initial patient contact, initial documentation, patient care assumed. Arrived- By private vehicle. Historian- patient. HISTORY OF PRESENT ILLNESS Chief Complaint: Injury to the left ankle. The injury happened about 3 months ago. ( denies any new injury/trauma, states he still hurts and needs pain meds). Patient is experiencing severe pain. Patient denies injury to the head or neck. No other injury. REVIEW OF SYSTEMS The patient complains of pain on weight bearing. No swelling, tingling, weakness, numbness or suspected foreign body. No skin laceration. All systems otherwise negative, except as recorded above. PAST HISTORY See nurses notes. PROBLEMS: Chest Wall Pain. Hematuria. Contusion. Drug Rash. Dental Pain. Dental Caries. Constipation. UTI - Urinary Tract Infection. Abdominal Pain. --17:53 Tenisha Ford R.N. ADDITIONAL SURGERIES: Dental Surgery. --17:53 Tenisha Ford R.N. SOCIAL HISTORY Heavy tobacco smoker. No alcohol use or drug use. No recent travel. Is a local resident. FAMILY HISTORY No significant family medical history. ADDITIONAL NOTES The nursing notes have been reviewed with agreement regarding the chief complaint, HPI, ROS, PMH and patient medications and allergies. PHYSICAL EXAM Vital Signs: 12/06/2016 17:50 BP: 139/88. HR: 103. RR: 19. O2 saturation: 98%. Have been reviewed as normal and appear to be correct. Appearance: Alert. Oriented X3. No acute distress. Head: Head atraumatic. Eyes: Pupils equal, round and reactive to light. Eyes normal inspection. Respiratory: No respiratory distress. Skin: Skin intact. Skin warm and dry. Extremities: No foot injury. No ankle injury. Foot and ankle exam otherwise negative. Extremities otherwise negative. Neuro, Vascular and Tendons: Vascular status intact. Sensation intact. Motor intact. Tendon function intact. Gait: Abnormal gait. (gait not tested, but pt did walk in for nurse to room). Neuro: Oriented X 3. No motor deficit. No sensory deficit. Note: isolated issue to ankle. PROGRESS AND PROCEDURES Course of Care: old er charts reviewed, pt maxed out per narcotic/controlled substance policy pt has angel recommending referring pt back to pcp for chronic conditions, frequent narcs, 09/05 Dr Kwong, 08/10 me, & 08/08 Dr Tracey from here, and #15 er visits see report for full details tx plan discussed with pt, pt aware that he was maxed out, happy to tx his pain and rx anything not controlled. Patient counseled in person regarding the patient's stable condition and diagnosis. Differential Diagnosis: I considered fracture, stress fracture, bone spur, bone contusion, gout, pseudogout, soft tissue injury, myositis, fasciitis, tendonitis and bursitis as a possible cause of lower extremity pain in this patient. This is a partial list of diagnoses considered. Above considerations are based on history and physical exam. Differential diagnosis was discussed with patient. Disposition: Discharged home in good and unchanged condition (19:23). Condition: good and stable. CLINICAL IMPRESSION Acute nontraumatic pain in the left lower extremity (ankle). INSTRUCTIONS Warnings: GENERAL WARNINGS: Return or contact your physician immediately if your condition worsens or changes unexpectedly, if not improving as expected, or if other problems arise. Specifically return if problem worsens. Prescription Medications: Naproxen 500 mg tablets: take 1 orally every 12 hours as needed for pain. Dispense twenty (20). No refills. Follow-up: Follow up with your doctor in about one week as needed. Call for an appointment. Summary of care provided to patient. Understanding of the discharge instructions verbalized by patient. (Electronically signed by Corina Caceres A.R.N.P. 12/06/2016 23:11)
--- NOTE | 2016-12-06 19:23 | ED NURSING NOTES ---
Clinical Report - Nurses [facility] [address] [place] [address] 12/06/2016 17:10 Patient: MICHAELA SHARMA TRIAGE Triage time 17:50. Acuity: LEVEL 4. 17:54 12/06/16. Alert. No acute distress. ANASTASIA COMA SCORE: Anastasia Coma Scale: 15- eyes open spontaneously (4); best verbal response- oriented x 4 (5); best motor response- obeys commands (6). --17:54 Tenisha Ford R.N. 17:50 12/06/16. BP: 139/88. HR: 103. RR: 19. O2 saturation: 98% on room air. Pain level now 10/10. --17:54 Tenisha Ford R.N. Weight: 90.7 kg stated. Height/Length: 70 inches Per Patient. BMI: 28.7. --17:51 Tenisha Ford R.N. Medications None. --17:53 Tenisha Ford R.N. Allergies Codeine. Tramadol. --17:53 Tenisha Ford R.N. Medication/allergy information source: the patient. --17:54 Tenisha Ford R.N. History Arrived by private vehicle. Historian: patient. Accompanied by family. Primary physician (no pcp). ( seen here for initial ankle injury following lumber falling on it while at work. Revisit for pain). 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 SOCIAL HX: Heavy tobacco smoker (cigarette)- less than 1 pack per day. No alcohol use or drug use. ABUSE ASSESSMENT: Abuse assessment: The patient was asked "Do you feel safe in your home?". No report of abuse. SELF HARM ASSESSMENT: A self harm assessment was performed. The patient answered "no" to the question "Do you have thoughts of harming or killing yourself?" and "Have you recently had thoughts about harming or killing others?". FALL RISK ASSESSMENT: Fall risk assessment completed. No fall risk identified. NUTRITIONAL RISK ASSESSMENT: The nutritional risk assessment revealed no deficiencies. FUNCTIONAL ASSESSMENT: Functional assessment: no impairments noted. LEARNING NEEDS ASSESSMENT: The learning needs assessment revealed no barriers. SKIN INTEGRITY ASSESSMENT: Skin integrity risk assessment completed. No skin integrity risk identified. --17:54 Tenisha Ford R.N. PROBLEMS: Chest Wall Pain. Hematuria. Contusion. Drug Rash. Dental Pain. Dental Caries. Constipation. UTI - Urinary Tract Infection. Abdominal Pain. --17:53 Tenisha Ford R.N. ADDITIONAL SURGERIES: Dental Surgery. --17:53 Tenisha Ford R.N. Interventions ID band on patient. To waiting room. --17:54 Tenisha Ford R.N. PHYSICAL ASSESSMENT Ambulatory to room. GENERAL / NEURO / PSYCH: Oriented X 4. Alert. Appears in no acute distress. EXTREMITIES: Limited ROM present. Extremity pulses are within normal limits. Neuro-vascular status intact to the extremity. No lower extremity edema. Left anterior ankle: tenderness and swelling. SKIN: Skin is warm and dry. --19:06 Linda Macias R.N. NURSING PROGRESS NOTES Patient identifiers checked. Call light placed in reach. Bed placed in lowest position. Brakes of bed on. --19:06 Linda Macias R.N. DISPOSITION / DISCHARGE Departure time: 19:32 Dec 06 2016. Condition at departure: unchanged. No learning barriers present. Reviewed medication(s) side effects, precautions, dosing and course information. Reviewed referral to a primary care physician for followup. Patient verbalized understanding. Written instructions provided in [place]. The patient was discharged home and accompanied by customer contact sales associate. He left the Emergency Department ambulatory and via private vehicle. Physician Extender driving. FALL RISK ASSESSMENT: Fall risk assessment completed. No fall risk identified. --19:32 Linda Macias R.N. 19:29 12/06/16. BP: 109/77. HR: 96. RR: 16. O2 saturation: 99%. Pain level now: 03/30. --19:32 Linda Macias R.N. Locked/Released at 12/07/2016 11:54 by Linda Macias R.N.
--- NOTE | 2016-12-06 19:23 | ED NURSING NOTES ---
Clinical Report - Nurses [facility] [address] [place] [address] 12/06/2016 17:10 Patient: MICHAELA SHARMA TRIAGE Triage time 17:50. Acuity: LEVEL 4. 17:54 12/06/16. Alert. No acute distress. ANASTASIA COMA SCORE: Anastasia Coma Scale: 15- eyes open spontaneously (4); best verbal response- oriented x 4 (5); best motor response- obeys commands (6). --17:54 Tenisha Ford R.N. 17:50 12/06/16. BP: 139/88. HR: 103. RR: 19. O2 saturation: 98% on room air. Pain level now 10/10. --17:54 Tenisha Ford R.N. Weight: 90.7 kg stated. Height/Length: 70 inches Per Patient. BMI: 28.7. --17:51 Tenisha Ford R.N. Medications None. --17:53 Tenisha Ford R.N. Allergies Codeine. Tramadol. --17:53 Tenisha Ford R.N. Medication/allergy information source: the patient. --17:54 Tenisha Ford R.N. History Arrived by private vehicle. Historian: patient. Accompanied by family. Primary physician (no pcp). ( seen here for initial ankle injury following lumber falling on it while at work. Revisit for pain). 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 SOCIAL HX: Heavy tobacco smoker (cigarette)- less than 1 pack per day. No alcohol use or drug use. ABUSE ASSESSMENT: Abuse assessment: The patient was asked "Do you feel safe in your home?". No report of abuse. SELF HARM ASSESSMENT: A self harm assessment was performed. The patient answered "no" to the question "Do you have thoughts of harming or killing yourself?" and "Have you recently had thoughts about harming or killing others?". FALL RISK ASSESSMENT: Fall risk assessment completed. No fall risk identified. NUTRITIONAL RISK ASSESSMENT: The nutritional risk assessment revealed no deficiencies. FUNCTIONAL ASSESSMENT: Functional assessment: no impairments noted. LEARNING NEEDS ASSESSMENT: The learning needs assessment revealed no barriers. SKIN INTEGRITY ASSESSMENT: Skin integrity risk assessment completed. No skin integrity risk identified. --17:54 Tenisha Ford R.N. PROBLEMS: Chest Wall Pain. Hematuria. Contusion. Drug Rash. Dental Pain. Dental Caries. Constipation. UTI - Urinary Tract Infection. Abdominal Pain. --17:53 Tenisha Ford R.N. ADDITIONAL SURGERIES: Dental Surgery. --17:53 Tenisha Ford R.N. Interventions ID band on patient. To waiting room. --17:54 Tenisha Ford R.N. PHYSICAL ASSESSMENT Ambulatory to room. GENERAL / NEURO / PSYCH: Oriented X 4. Alert. Appears in no acute distress. EXTREMITIES: Limited ROM present. Extremity pulses are within normal limits. Neuro-vascular status intact to the extremity. No lower extremity edema. Left anterior ankle: tenderness and swelling. SKIN: Skin is warm and dry. --19:06 Linda Macias R.N. NURSING PROGRESS NOTES Patient identifiers checked. Call light placed in reach. Bed placed in lowest position. Brakes of bed on. --19:06 Linda Macias R.N. DISPOSITION / DISCHARGE Departure time: 19:32 Dec 06 2016. Condition at departure: unchanged. No learning barriers present. Reviewed medication(s) side effects, precautions, dosing and course information. Reviewed referral to a primary care physician for followup. Patient verbalized understanding. Written instructions provided in [place]. The patient was discharged home and accompanied by figurine maker. He left the Emergency Department ambulatory and via private vehicle. Fur Cutting Machine Operator driving. FALL RISK ASSESSMENT: Fall risk assessment completed. No fall risk identified. --19:32 Linda Macias R.N. 19:29 12/06/16. BP: 109/77. HR: 96. RR: 16. O2 saturation: 99%. Pain level now: 03/30. --19:32 Linda Macias R.N. Locked/Released at 12/07/2016 11:54 by Linda Macias R.N.
--- NOTE | 2016-12-07 11:54 | ED DISCHARGE INSTRUCTIONS ---
Patient: MICHAELA SHARMA General Instructions [facility] VisitID: [id number] [place] [address] 31y, M Registration Date/Time: 12/06/2016 Acute nontraumatic pain in the left lower extremity (ankle). INSTRUCTIONS Warnings: GENERAL WARNINGS: Return or contact your physician immediately if your condition worsens or changes unexpectedly, if not improving as expected, or if other problems arise. Specifically return if problem worsens. Prescription Medications: Naproxen 500 mg tablets: take 1 orally every 12 hours as needed for pain. Dispense twenty (20). No refills. Follow-up: Follow up with your doctor in about one week as needed. Call for an appointment. Summary of care provided to patient. Understanding of the discharge instructions verbalized by patient. ADDITIONAL INFORMATION Pain, Uncertain Cause [Acute] Pain is the bodys way of calling attention to a problem. Pain can be caused by many conditions - some minor, some serious. In your case, we were not able to find the exact cause for your pain. However, at this time there is no sign of any serious or life-threatening illness causing your pain. Sometimes more tests will be needed to determine the cause. Other times, just allowing more time to pass will either make it clear what the problem is, or the pain will go away by itself. Home Care: You may use acetaminophen (Tylenol) or ibuprofen (Motrin, Advil) to control pain, unless another medicine was prescribed. [NOTE: If you have chronic liver or kidney disease or ever had a stomach ulcer or GI bleeding, talk with your doctor before using these medicines.] Follow Up with your doctor or as advised by our staff. Get Prompt Medical Attention if any of the following occur: Changes in the pattern of your pain Appearance of new symptoms Fever of 100.4F (38C) or higher, or as directed by your healthcare provider Myositis Myositis is a class of rare auto-immune diseases that cause chronic inflammation. These include Polymyositis, which affects muscles throughout the body, and Dermatomyositis, which affects both skin and muscle. Other forms can affect the joints, heart, lungs and intestines. This condition can be hard to diagnose, because it resembles other diseases. Immune cells in the body usually attack and destroy viruses and harmful bacteria. In myositis, for unknown reasons, the immune system begins attacking the skin and/or muscles. Sometimes other parts of the body are also affected. Myositis may be triggered by exposure to certain chemicals, drugs, or viruses. It is important that you tell your doctor about any [id number] drug use, infection, or exposure to other substances that occurred near the time when your symptoms started. Stopping the exposure or treating the infection may stop myositis. The symptoms of myositis can be very different depending on the type you have. Common symptoms are muscle weakness (especially muscles of the hips and shoulders), loss of energy (fatigue), rash or changes in the skin, and arthritis (swollen, painful joints). You may have trouble climbing stairs, getting out of chairs, lifting heavy things, or raising your arms overhead. Sometimes the muscles ache and become tender. The swallowing muscles may also be affected. The disease usually starts slowly and may take months or years to develop. You may notice that you have periods when your symptoms get worse (active disease) followed by periods where symptoms get better or go away completely (remission). Treatment options include medication, rest, physical therapy and exercise. Your doctor may prescribe oral steroids or drugs that suppress the immune system in order to slow down the progress of the disease. Home Care: If you were prescribed a medication, take it as directed. You may use acetaminophen (Tylenol) or ibuprofen (Motrin, Advil) to control pain, unless another medicine was prescribed. [NOTE: If you have chronic liver or kidney disease or ever had a stomach ulcer or GI bleeding, talk with your doctor before using these medicines.] Dont take ibuprofen or other NSAIDs (non-steroidal anti-inflammatory drugs) if you were prescribed prednisone. Remain physically active. Light exercise and physical activity are helpful to keep your muscles in the best shape possible. Talk to your doctor about an exercise plan that is right for you. If you are having muscle aches, rest as needed. Follow Up with your doctor or as advised by our staff. For more information contact: Myositis Association, www.myositis.org [employer] [phone], www.arthritis.org Return Promptly or contact your doctor if any of the following occur: Change in bowel or bladder habits Blood in the stool (black or red color) Unexpected weight loss A lump in the breast or elsewhere Difficulty swallowing Change in the appearance of a wart or mole Persistent cough, hoarseness or coughing up blood Night sweats or unexplained fevers Shortness of breath Arthralgia Arthralgia is the term for pain in or around the joint. It is not a disease but a symptom. This may involve one or more joints. Sometimes arthralgias move from joint to joint. There are many causes for joint pain. These include: Injury Osteoarthritis (from wearing out of the joint surface) Rheumatoid arthritis (an autoimmune disease) Gout (inflammation of the joint due to crystals in the joint fluid) Infection inside the joint Bursitis (inflammation of the fluid-filled sacs around the joint) Lupus and other collagen-vascular disease Home Care: Rest the involved joint(s) until your symptoms improve. You may use acetaminophen (Tylenol) or ibuprofen (Motrin, Advil) to control pain, unless another pain medicine was prescribed. [NOTE: If you have chronic liver or kidney disease or ever had a stomach ulcer or GI bleeding, talk with your doctor before using these medicines.] Follow Up with your doctor or as advised by our staff. [NOTE: If you had an X-ray it will be reviewed by a specialist. You will be notified of any new findings that may affect your care.] Return Promptly or contact your doctor if any of the following occurs: Pain increases Pain moves to other joints New rash appears Fever of 100.4F (38C) or higher, or as directed by your healthcare provider Naproxen Sodium Oral tablet What is this medicine? NAPROXEN (na PROX en) is a non-steroidal anti-inflammatory drug (NSAID). It is used to reduce swelling and to treat pain. This medicine may be used for dental pain, headache, or painful monthly periods. It is also used for painful joint and muscular problems such as arthritis, tendinitis, bursitis, and gout. How should I use this medicine? Take this medicine by mouth with a glass of water. Follow the directions on the prescription label. Take it with food if your stomach gets upset. Try to not lie down for at least 10 minutes after you take it. Take your medicine at regular intervals. Do not take your medicine more often than directed. Long-term, continuous use may increase the risk of heart attack or stroke. A special MedGuide will be given to you by the pharmacist with each prescription and refill. Be sure to read this information carefully each time. Talk to your activity therapy teacher regarding the use of this medicine in children. Special care may be needed. What side effects may I notice from receiving this medicine? Side effects that you should report to your doctor or health livestock caretaker as soon as possible: black or bloody stools, blood in the urine or vomit blurred vision chest pain difficulty breathing or wheezing nausea or vomiting severe stomach pain skin rash, skin redness, blistering or peeling skin, hives, or itching slurred speech or weakness on one side of the body swelling of eyelids, throat, lips unexplained weight gain or swelling unusually weak or tired yellowing of eyes or skin Side effects that usually do not require medical attention (report to your doctor or health livestock caretaker if they continue or are bothersome): constipation headache heartburn What may interact with this medicine? alcohol aspirin cidofovir diuretics lithium methotrexate other drugs for inflammation like ketorolac or prednisone pemetrexed probenecid warfarin What if I miss a dose? If you miss a dose, take it as soon as you can. If it is almost time for your next dose, take only that dose. Do not take double or extra doses. Where should I keep my medicine? Keep out of the reach of children. Store at room temperature between 15 and 30 degrees C (59 and 86 degrees F). Keep container tightly closed. Throw away any unused medicine after the expiration date. What should I tell my health care provider before I take this medicine? They need to know if you have any of these conditions: asthma cigarette smoker drink more than 3 alcohol containing drinks a day heart disease or circulation problems such as heart failure or leg edema (fluid retention) high blood pressure kidney disease liver disease stomach bleeding or ulcers an unusual or allergic reaction to naproxen, aspirin, other NSAIDs, other medicines, foods, dyes, or preservatives or trying to get breast-feeding What should I watch for while using this medicine? Tell your doctor or health livestock caretaker if your pain does not get better. Talk to your doctor before taking another medicine for pain. Do not treat yourself. This medicine does not prevent heart attack or stroke. In fact, this medicine may increase the chance of a heart attack or stroke. The chance may increase with longer use of this medicine and in people who have heart disease. If you take aspirin to prevent heart attack or stroke, talk with your doctor or health livestock caretaker. Do not take other medicines that contain aspirin, ibuprofen, or naproxen with this medicine. Side effects such as stomach upset, nausea, or ulcers may be more likely to occur. Many medicines available without a prescription should not be taken with this medicine. This medicine can cause ulcers and bleeding in the stomach and intestines at any time during treatment. Do not smoke cigarettes or drink alcohol. These increase irritation to your stomach and can make it more susceptible to damage from this medicine. Ulcers and bleeding can happen without warning symptoms and can cause . You may get drowsy or dizzy. Do not drive, use machinery, or do anything that needs mental alertness until you know how this medicine affects you. Do not stand or sit up quickly, especially if you are an older patient. This reduces the risk of dizzy or fainting spells. This medicine can cause you to bleed more easily. Try to avoid damage to your teeth and gums when you brush or floss your teeth. You have been given the following additional information: Pain, Uncertain Cause (Acute) Myositis Arthralgia Naproxen Sodium Oral tablet (Electronically signed by Corina Caceres A.R.N.P. 12/06/2016 23:11)
--- NOTE | 2016-12-07 11:54 | ED MAR SUMMARY ---
..... Medication Administration Record [facility] [address] [place], [place] [id number] Patient: MICHAELA SHARMA Visit ID: [id number] 31y, M Weight: 90.7 kg Height/Length: 70 in BMI: 28.7 ALLERGIES: Codeine, Tramadol
--- NOTE | 2016-12-07 11:54 | ED MED RECONCILIATION SUMMARY ---
Patient: MICHAELA SHARMA Medication Reconciliation Report [facility] VisitID: [id number] [place] [address] 31y, M Registration Date/Time: 12/06/2016 Weight: 90.7 kg Height/Length: 70 in. BMI: 28.7 ALLERGIES: Codeine, Tramadol The patient's Home Medications are listed below: NONE. The source(s) of the original Home Medication information: patient The following Medications were given to the patient in the Emergency Department: None. The following Medications were prescribed to the patient: Naproxen 500 mg tablets: take 1 orally every 12 hours as needed for pain. Dispense twenty (20). No refills. -- Corina Caecres A.R.N.P.
--- NOTE | 2016-12-07 11:54 | ED MED RECONCILIATION SUMMARY ---
Patient: MICHAELA SHARMA Medication Reconciliation Report [facility] VisitID: [id number] [place] [address] 31y, M Registration Date/Time: 12/06/2016 Weight: 90.7 kg Height/Length: 70 in. BMI: 28.7 ALLERGIES: Codeine, Tramadol The patient's Home Medications are listed below: NONE. The source(s) of the original Home Medication information: patient The following Medications were given to the patient in the Emergency Department: None. The following Medications were prescribed to the patient: Naproxen 500 mg tablets: take 1 orally every 12 hours as needed for pain. Dispense twenty (20). No refills. -- Corina Caceres A.R.N.P.
--- NOTE | 2016-12-07 11:54 | ED MAR SUMMARY ---
..... Medication Administration Record [facility] [address] [place], [place] [id number] Patient: MICHAELA SHARMA Visit ID: [id number] 31y, M Weight: 90.7 kg Height/Length: 70 in BMI: 28.7 ALLERGIES: Codeine, Tramadol
== END 2016-12-06 19:34 | disposition home or self-care (01) ==
LOC: ED SRH 17:11
DX: M25.572 Pain in left ankle and joints of left foot (principal); X58.XXXA Exposure to other specified factors, initial encounter; Y93.9 Activity, unspecified; Y92.9 Unspecified place or not applicable; Y99.9 Unspecified external cause status; F17.210 Nicotine dependence, cigarettes, uncomplicated

== ENCOUNTER 2016-12-24 16:35 | Emergency (ER) | payer OTHER ==
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
--- NOTE | 2016-12-24 17:41 | ED NURSING NOTES ---
Clinical Report - Nurses [facility] [place] [address] 12/24/2016 16:36 Patient: MICHAELA SHARMA TRIAGE Triage time 16:48 Dec 24 2016. Acuity: LEVEL 4. Chief Complaint: RIGHT LOWER EXTREMITY PAIN and NUMBNESS. Alert. No acute distress. --16:53 Linda Macias R.N. 16:48 12/24/16. BP: 144/87. HR: 89. RR: 12. O2 saturation: 99%. Temp: 98.2 F. Pain level now: 03/30. --16:53 Linda Macias R.N. Chief Complaint: RIGHT LOWER EXTREMITY PAIN and NUMBNESS. --18:00 Linda Macias R.N. Weight: 87.9 kg stated. Height/Length: 70 inches Per Patient. BMI: 27.8. --16:52 Linda Macias R.N. Medications None. --16:49 Linda Macias R.N. Allergies Tramadol. --16:50 Linda Macias R.N. Tylenol 3. --16:50 Linda Macias R.N. History <<STRICKEN ENTRY-- Arrived by private vehicle. Historian: patient. Injury occurred. This occurred (12/22/16). ( pt stepped on fire cracker). He has had a skin rash. Location- left foot. No skin rash on the right foot. 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 PAST MEDICAL HX: Tetanus status: up-to-date. Immunizations: up-to-date. SOCIAL HX: Current every day light tobacco smoker (cigarette)- less than 1/2 a pack per day. No alcohol use or drug use. No infectious disease exposure. SELF HARM ASSESSMENT: A self harm assessment was performed. The patient answered "no" to the question "Do you have thoughts of harming or killing yourself?" and "Have you recently had thoughts about harming or killing others?". FALL RISK ASSESSMENT: Fall risk assessment completed. No fall risk identified. NUTRITIONAL RISK ASSESSMENT: The nutritional risk assessment revealed no deficiencies. FUNCTIONAL ASSESSMENT: Functional assessment: no impairments noted. LEARNING NEEDS ASSESSMENT: The learning needs assessment revealed no barriers. ABUSE ASSESSMENT: Abuse assessment: The patient was asked "Do you feel safe in your home?". SKIN INTEGRITY ASSESSMENT: Skin integrity risk assessment completed. No skin integrity risk identified. --16:53 Linda Macias R.N. --END STRIKE>> Correction --17:58 Linda Macias R.N. Arrived by private vehicle. Historian: patient. Injury occurred. This occurred (12/22/16). ( pt stepped on fire cracker). He has had a skin rash. Location- right foot and left foot. 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 PAST MEDICAL HX: Tetanus status: up-to-date. Immunizations: up-to-date. SOCIAL HX: Current every day light tobacco smoker (cigarette)- less than 1/2 a pack per day. No alcohol use or drug use. No infectious disease exposure. SELF HARM ASSESSMENT: A self harm assessment was performed. The patient answered "no" to the question "Do you have thoughts of harming or killing yourself?" and "Have you recently had thoughts about harming or killing others?". FALL RISK ASSESSMENT: Fall risk assessment completed. No fall risk identified. NUTRITIONAL RISK ASSESSMENT: The nutritional risk assessment revealed no deficiencies. FUNCTIONAL ASSESSMENT: Functional assessment: no impairments noted. LEARNING NEEDS ASSESSMENT: The learning needs assessment revealed no barriers. ABUSE ASSESSMENT: Abuse assessment: The patient was asked "Do you feel safe in your home?". SKIN INTEGRITY ASSESSMENT: Skin integrity risk assessment completed. No skin integrity risk identified. --18:00 Linda Macias R.N. PROBLEMS: Acute Pain. Chest Wall Pain. Hematuria. Contusion. Drug Rash. Dental Pain. Dental Caries. Constipation. UTI - Urinary Tract Infection. Abdominal Pain. --16:50 Linda Macias R.N. ADDITIONAL SURGERIES: Dental Surgery. --16:50 Linda Macias R.N. Interventions ID band on patient. To room. --16:53 Linda Macias R.N. PHYSICAL ASSESSMENT <<STRICKEN ENTRY-- GENERAL / NEURO / PSYCH: The patient has had new onset of constant numbness of the left leg and foot. EXTREMITIES: Small area of erythema with tenderness to right foot. No lower extremity edema. Right foot: tenderness and superficial 1.0 cm laceration with controlled bleeding of the plantar aspect of the foot. Limited weight bearing secondary to pain. SKIN: Skin is warm and dry. Skin rash located on the right foot and left foot. --16:54 Linda Macias R.N. --END STRIKE>> Correction --18:00 Linda Macias R.N. GENERAL / NEURO / PSYCH: The patient has had new onset of constant numbness of the right leg and foot. EXTREMITIES: Small area of erythema with tenderness to right foot. No lower extremity edema. Right foot: tenderness and superficial 1.0 cm laceration with controlled bleeding of the plantar aspect of the foot. Limited weight bearing secondary to pain. SKIN: Skin is warm and dry. Skin rash located on the right foot and left foot. --18:01 Linda Macias R.N. NURSING PROGRESS NOTES Patient identifiers checked. Call light placed in reach. Side rails up x 1. Bed placed in lowest position. Brakes of bed on. --16:54 Linda Macias R.N. 17:09 12/24/2016 TDAP IM 0.5 mL given. (Lot#: [id number], expiration date: 11/22/2018, [employer] Worker: sanofi pasteur). Given in the left deltoid. Allergies verified and confirmed 5 rights. Vaccine information statement provided to the patient. --17:10 Linda Macias R.N. 17:12 12/24/2016 Hydrocodone-APAP (Hydrocodone-Acetaminophen) PO 5/325 mg Tablets 1 tab given. --17:12 Linda Macias R.N. 17:44 12/24/2016 Bactrim DS (Sulfamethoxazole-TMP DS) PO Tablets 1 tab given. Allergies verified and confirmed 5 rights. --17:44 Bianca Farias 17:44 12/24/2016 Keflex (Cephalexin) PO Capsules 500 mg given. Allergies verified and confirmed 5 rights. --17:44 Bianca Farias. DISPOSITION / DISCHARGE Departure time: 1749Dec 24 2016. Condition at departure: improved. No learning barriers present. Discharge instructions provided and reviewed with the patient. Reviewed medication(s) side effects, precautions, dosing and course information. Prescription(s) given to the patient. Reviewed referral to a primary care physician for followup. Patient verbalized understanding. Written instructions provided in Croatian. The patient was discharged home. He left the Emergency Department ambulatory and via private vehicle. Patient driving. FALL RISK ASSESSMENT: Fall risk assessment completed. No fall risk identified. --19:00 Linda Macias R.N. 18:59 12/24/16. BP: 138/90. HR: 96. RR: 12. O2 saturation: 95%. Pain level now: 02/28. --19:00 Linda Macias R.N. Locked/Released at 12/24/2016 19:02 by Linda Macias R.N.
--- NOTE | 2016-12-24 17:41 | ED ORDER SUMMARY ---
..... Patient: MICHAELA SHARMA OrderSheet [facility] VisitID: [id number] [place] [address] 31y, M Registration Date/Time: 12/24/2016 ORDER SHEET Weight: 87.9 kg (stated) Allergies: Tramadol, Tylenol 3 GENERAL ORDERS: Foot 3V Right Urgent (16:54 12/24/2016 EKoroleva P.A.-C) (Ack 16:58 oerner) (17:10 KKnebel R.N.) CBC w Diff Urgent (17:03 12/24/2016 EKoroleva P.A.-C) (Ack 17:03 KHoerner) (17:10 KKnebel R.N.) PCT (Procalcitonin) Urgent (17:03 12/24/2016 EKoroleva P.A.-C) (Ack 17:03 MAIKELoerner) (17:10 KKnebel R.N.) MEDICATION ORDERS: Tdap IM 0.5 mL (NOW, per protocol) (16:54 12/24/2016 EKoroleva P.A.-C) (17:10 KKnebel R.N.) Hydrocodone-APAP PO 5/325 mg (NOW, HIGH ALERT MEDICATION) (17:03 12/24/2016 EKoroleva P.A.-C) (17:12 KKnebel R.N.) Bactrim DS PO (Tablet 800-160 mg) 1 tab (NOW) (17:32 12/24/2016 EKoroleva P.A.-C) (Ack 17:37 ASchmuck) (17:44 ASchmuck) Keflex PO 500 mg (NOW) (17:32 12/24/2016 EKoroleva P.A.-C) (Ack 17:37 ASchmuck) (17:44 ASchmuck) IV FLUIDS: ORDER SHEET NOTES: [Electronically signed by Courtney BarnesAStevenson-C (18:08 12/24/2016)] [Electronically signed by Linda Macias RStevensonNStevenson (19:02 12/24/2016)] [Electronically locked/signed by Linda Macias R.N. (19:02 12/24/2016)]
--- NOTE | 2016-12-24 17:41 | ED ORDER SUMMARY ---
..... Patient: MICHAELA SHARMA OrderSheet [facility] VisitID: [id number] [place] [address] 31y, M Registration Date/Time: 12/24/2016 ORDER SHEET Weight: 87.9 kg (stated) Allergies: Tramadol, Tylenol 3 GENERAL ORDERS: Foot 3V Right Urgent (16:54 12/24/2016 EKoroleva P.A.-C) (Ack 16:58 oerner) (17:10 KKnebel R.N.) CBC w Diff Urgent (17:03 12/24/2016 EKoroleva P.A.-C) (Ack 17:03 KHoerner) (17:10 KKnebel R.N.) PCT (Procalcitonin) Urgent (17:03 12/24/2016 EKoroleva P.A.-C) (Ack 17:03 MAIKELoerner) (17:10 KKnebel R.N.) MEDICATION ORDERS: Tdap IM 0.5 mL (NOW, per protocol) (16:54 12/24/2016 EKoroleva P.A.-C) (17:10 KKnebel R.N.) Hydrocodone-APAP PO 5/325 mg (NOW, HIGH ALERT MEDICATION) (17:03 12/24/2016 EKoroleva P.A.-C) (17:12 KKnebel R.N.) Bactrim DS PO (Tablet 800-160 mg) 1 tab (NOW) (17:32 12/24/2016 EKoroleva P.A.-C) (Ack 17:37 ASchmuck) (17:44 ASchmuck) Keflex PO 500 mg (NOW) (17:32 12/24/2016 EKoroleva P.A.-C) (Ack 17:37 ASchmuck) (17:44 ASchmuck) IV FLUIDS: ORDER SHEET NOTES: [Electronically signed by Courtney BarnesAStevenson-C (18:08 12/24/2016)] [Electronically signed by Linda Macias RStevensonNStevenson (19:02 12/24/2016)] [Electronically locked/signed by Linda Macias R.N. (19:02 12/24/2016)]
--- NOTE | 2016-12-24 17:41 | ED NURSING NOTES ---
Clinical Report - Nurses [facility] [place] [address] 12/24/2016 16:36 Patient: MICHAELA SHARMA TRIAGE Triage time 16:48 Dec 24 2016. Acuity: LEVEL 4. Chief Complaint: RIGHT LOWER EXTREMITY PAIN and NUMBNESS. Alert. No acute distress. --16:53 Linda Macias R.N. 16:48 12/24/16. BP: 144/87. HR: 89. RR: 12. O2 saturation: 99%. Temp: 98.2 F. Pain level now: 03/30. --16:53 Linda Macias R.N. Chief Complaint: RIGHT LOWER EXTREMITY PAIN and NUMBNESS. --18:00 Linda Macias R.N. Weight: 87.9 kg stated. Height/Length: 70 inches Per Patient. BMI: 27.8. --16:52 Linda Macias R.N. Medications None. --16:49 Linda Macias R.N. Allergies Tramadol. --16:50 Linda Macias R.N. Tylenol 3. --16:50 Linda Macias R.N. History <<STRICKEN ENTRY-- Arrived by private vehicle. Historian: patient. Injury occurred. This occurred (12/22/16). ( pt stepped on fire cracker). He has had a skin rash. Location- left foot. No skin rash on the right foot. 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 PAST MEDICAL HX: Tetanus status: up-to-date. Immunizations: up-to-date. SOCIAL HX: Current every day light tobacco smoker (cigarette)- less than 1/2 a pack per day. No alcohol use or drug use. No infectious disease exposure. SELF HARM ASSESSMENT: A self harm assessment was performed. The patient answered "no" to the question "Do you have thoughts of harming or killing yourself?" and "Have you recently had thoughts about harming or killing others?". FALL RISK ASSESSMENT: Fall risk assessment completed. No fall risk identified. NUTRITIONAL RISK ASSESSMENT: The nutritional risk assessment revealed no deficiencies. FUNCTIONAL ASSESSMENT: Functional assessment: no impairments noted. LEARNING NEEDS ASSESSMENT: The learning needs assessment revealed no barriers. ABUSE ASSESSMENT: Abuse assessment: The patient was asked "Do you feel safe in your home?". SKIN INTEGRITY ASSESSMENT: Skin integrity risk assessment completed. No skin integrity risk identified. --16:53 Linda Macias R.N. --END STRIKE>> Correction --17:58 Linda Macias R.N. Arrived by private vehicle. Historian: patient. Injury occurred. This occurred (12/22/16). ( pt stepped on fire cracker). He has had a skin rash. Location- right foot and left foot. 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 PAST MEDICAL HX: Tetanus status: up-to-date. Immunizations: up-to-date. SOCIAL HX: Current every day light tobacco smoker (cigarette)- less than 1/2 a pack per day. No alcohol use or drug use. No infectious disease exposure. SELF HARM ASSESSMENT: A self harm assessment was performed. The patient answered "no" to the question "Do you have thoughts of harming or killing yourself?" and "Have you recently had thoughts about harming or killing others?". FALL RISK ASSESSMENT: Fall risk assessment completed. No fall risk identified. NUTRITIONAL RISK ASSESSMENT: The nutritional risk assessment revealed no deficiencies. FUNCTIONAL ASSESSMENT: Functional assessment: no impairments noted. LEARNING NEEDS ASSESSMENT: The learning needs assessment revealed no barriers. ABUSE ASSESSMENT: Abuse assessment: The patient was asked "Do you feel safe in your home?". SKIN INTEGRITY ASSESSMENT: Skin integrity risk assessment completed. No skin integrity risk identified. --18:00 Linda Macias R.N. PROBLEMS: Acute Pain. Chest Wall Pain. Hematuria. Contusion. Drug Rash. Dental Pain. Dental Caries. Constipation. UTI - Urinary Tract Infection. Abdominal Pain. --16:50 Linda Macias R.N. ADDITIONAL SURGERIES: Dental Surgery. --16:50 Linda Macias R.N. Interventions ID band on patient. To room. --16:53 Linda Macias R.N. PHYSICAL ASSESSMENT <<STRICKEN ENTRY-- GENERAL / NEURO / PSYCH: The patient has had new onset of constant numbness of the left leg and foot. EXTREMITIES: Small area of erythema with tenderness to right foot. No lower extremity edema. Right foot: tenderness and superficial 1.0 cm laceration with controlled bleeding of the plantar aspect of the foot. Limited weight bearing secondary to pain. SKIN: Skin is warm and dry. Skin rash located on the right foot and left foot. --16:54 Linda Macias R.N. --END STRIKE>> Correction --18:00 Linda Macias R.N. GENERAL / NEURO / PSYCH: The patient has had new onset of constant numbness of the right leg and foot. EXTREMITIES: Small area of erythema with tenderness to right foot. No lower extremity edema. Right foot: tenderness and superficial 1.0 cm laceration with controlled bleeding of the plantar aspect of the foot. Limited weight bearing secondary to pain. SKIN: Skin is warm and dry. Skin rash located on the right foot and left foot. --18:01 Linda Macias R.N. NURSING PROGRESS NOTES Patient identifiers checked. Call light placed in reach. Side rails up x 1. Bed placed in lowest position. Brakes of bed on. --16:54 Linda Macias R.N. 17:09 12/24/2016 TDAP IM 0.5 mL given. (Lot#: [id number], expiration date: 11/22/2018, Street Department Dispatcher: sanofi pasteur). Given in the left deltoid. Allergies verified and confirmed 5 rights. Vaccine information statement provided to the patient. --17:10 Linda Macias R.N. 17:12 12/24/2016 Hydrocodone-APAP (Hydrocodone-Acetaminophen) PO 5/325 mg Tablets 1 tab given. --17:12 Linda Macias R.N. 17:44 12/24/2016 Bactrim DS (Sulfamethoxazole-TMP DS) PO Tablets 1 tab given. Allergies verified and confirmed 5 rights. --17:44 Bianca Farias 17:44 12/24/2016 Keflex (Cephalexin) PO Capsules 500 mg given. Allergies verified and confirmed 5 rights. --17:44 Bianca Farias. DISPOSITION / DISCHARGE Departure time: 1749Dec 24 2016. Condition at departure: improved. No learning barriers present. Discharge instructions provided and reviewed with the patient. Reviewed medication(s) side effects, precautions, dosing and course information. Prescription(s) given to the patient. Reviewed referral to a primary care physician for followup. Patient verbalized understanding. Written instructions provided in Sami. The patient was discharged home. He left the Emergency Department ambulatory and via private vehicle. Patient driving. FALL RISK ASSESSMENT: Fall risk assessment completed. No fall risk identified. --19:00 Linda Macias R.N. 18:59 12/24/16. BP: 138/90. HR: 96. RR: 12. O2 saturation: 95%. Pain level now: 02/28. --19:00 Linda Macias R.N. Locked/Released at 12/24/2016 19:02 by Linda Macias R.N.
--- NOTE | 2016-12-24 19:02 | ED MED RECONCILIATION SUMMARY ---
Patient: MICHAELA SHARMA Medication Reconciliation Report [facility] VisitID: [id number] [address] [place] [address] 31y, M Registration Date/Time: 12/24/2016 Weight: 87.9 kg Height/Length: 70 in. BMI: 27.8 ALLERGIES: Tramadol, Tylenol 3 The patient's Home Medications are listed below: NONE. The source(s) of the original Home Medication information: Not obtained. The following Medications were given to the patient in the Emergency Department: TDAP [IM] IM 0.5 mL, administered: 12/24/2016 5:09:00 PM Hydrocodone-APAP [PO] PO 1 tab, administered: 12/24/2016 5:12:00 PM Bactrim DS [PO] PO 1 tab, administered: 12/24/2016 5:44:00 PM Keflex [PO] PO 500 mg, administered: 12/24/2016 5:44:00 PM The following Medications were prescribed to the patient: Hydrocodone/APAP 5mg / 325mg: take 1 orally every 6 hours. Dispense ten (10). No refill. -- Courtney Barnes, P.A.-C Cephalexin 500 mg: take 1 capsule orally for 10 days. No refill. -- Courtney Barnes, P.A.-Jodie Bactrim DS 800 mg / 160 mg: take 1 tablet orally every 12 hours for 10 days. No refill. Substitution is permissible. -- Courtney Barnes, P.A.-C
--- NOTE | 2016-12-24 19:02 | ED MED RECONCILIATION SUMMARY ---
Patient: MICHAELA SHARMA Medication Reconciliation Report [facility] VisitID: [id number] [address] [place] [address] 31y, M Registration Date/Time: 12/24/2016 Weight: 87.9 kg Height/Length: 70 in. BMI: 27.8 ALLERGIES: Tramadol, Tylenol 3 The patient's Home Medications are listed below: NONE. The source(s) of the original Home Medication information: Not obtained. The following Medications were given to the patient in the Emergency Department: TDAP [IM] IM 0.5 mL, administered: 12/24/2016 5:09:00 PM Hydrocodone-APAP [PO] PO 1 tab, administered: 12/24/2016 5:12:00 PM Bactrim DS [PO] PO 1 tab, administered: 12/24/2016 5:44:00 PM Keflex [PO] PO 500 mg, administered: 12/24/2016 5:44:00 PM The following Medications were prescribed to the patient: Hydrocodone/APAP 5mg / 325mg: take 1 orally every 6 hours. Dispense ten (10). No refill. -- Courtney Barnes, P.A.-C Cephalexin 500 mg: take 1 capsule orally for 10 days. No refill. -- Courtney Barnes, P.A.-Jodie Bactrim DS 800 mg / 160 mg: take 1 tablet orally every 12 hours for 10 days. No refill. Substitution is permissible. -- Courtney Barnes, P.A.-C
--- NOTE | 2016-12-24 19:02 | ED DISCHARGE INSTRUCTIONS ---
Patient: MICHAELA SHARMA General Instructions [facility] VisitID: [id number] [place] [address] 31y, M Registration Date/Time: 12/24/2016 Single deep laceration to the right foot. Delayed treatment. Infection present. INSTRUCTIONS Protect wound and keep wound area clean. Apply bacitracin twice daily. Warnings: TETANUS: You were given a tetanus shot during your visit. Make a note for future reference. Prescription Medications: Hydrocodone/APAP 5mg / 325mg: take 1 orally every 6 hours. Dispense ten (10). No refill. Cephalexin 500 mg: take 1 capsule orally for 10 days. No refill. Bactrim DS 800 mg / 160 mg: take 1 tablet orally every 12 hours for 10 days. No refill. Substitution is permissible. Follow-up: Follow up with your doctor Wednesday in two for wound check. ADDITIONAL INFORMATION Laceration, Extremity (Sutures, Brandon, Or Tape) A laceration is a cut through the skin. This will usually require stitches (sutures) or brandon if it is deep. Minor cuts may be treated with surgical tape closures. Home care The following guidelines will help you care for your laceration at home: Keep the wound clean and dry. If a bandage was applied and it becomes wet or dirty, replace it. Otherwise, leave it in place for the first 24 hours, then change it once a day or as directed. If stitches or brandon were used, clean the wound daily: After removing the bandage, wash the area with soap and water. Use a wet cotton swab to loosen and remove any blood or crust that forms. After cleaning, keep the wound clean and dry. Talk with your doctor before applying any antibiotic ointment to the wound. Reapply the bandage. You may remove the bandage to shower as usual after the first 24 hours, but do not soak the area in water (no swimming) until the stitches or brandon are removed. If surgical tape closures were used, keep the area clean and dry. If it becomes wet, blot it dry with a towel. The doctor may prescribe an antibiotic cream or ointment to prevent infection. Do not stop taking this medication until you have finished the prescribed course or the doctor tells you to stop. The doctor may also prescribe medications for pain. Follow the doctors instructions for taking these medications. If you have chronic liver or kidney disease or ever had a stomach ulcer or GI bleeding, talk with your doctor before using these medicines. Follow-up care Follow up with your health care provider. Most skin wounds heal within ten days. However, an infection may sometimes occur despite proper treatment. Therefore, check the wound daily for the signs of infection listed below. Stitches and brandon should be removed within 714 days. If surgical tape closures were used, you may remove them after 10 days, if they have not fallen off by then. Notify your doctor if you notice persistent numbness or weakness in the injured extremity. (Note:A radiologist will review any X-rays that were taken. We will notify you of any new findings that may affect your care.) When to seek medical care Get prompt medical attention if any of these occur: Increasing pain in the wound Redness, swelling, or pus coming from the wound Fever of 100.4F (38C) or higher, or as directed by your health care provider If stitches or brandon come apart or fall out before your next appointment If the surgical tape closures fall off within seven days, or the wound edges re-open Bleeding not controlled by direct pressure Diphtheria Toxoid Adsorbed, Pertussis Vaccine, Acellular (Adsorbed), Tetanus Toxoid, Adsorbed Suspension for injection What is this medicine? DIPHTHERIA and TETANUS TOXOIDS; PERTUSSIS VACCINE (dif THEER ee uh and TET n us TOK soids; per TUS iss vak SEEN) is used to prevent diphtheria, tetanus, and pertussis infections. How should I use this medicine? This vaccine is for injection into a muscle. It is given by a health care nurse rn. A copy of Vaccine Information Statements will be given before each vaccination. Read this sheet carefully each time. The sheet may change frequently. Talk to your circle shear operator regarding the use of this vaccine in children. While the DTP vaccine may be given to children ages 6 weeks to 7 years and the Tdap vaccine may be given to children at least 10 years old, precautions do apply. What side effects may I notice from receiving this medicine? Side effects that you should report to your doctor or health care nurse rn as soon as possible: allergic reactions like skin rash, itching or hives, swelling of the face, lips, or tongue breathing problems fever of 103 degrees F or more flu-like symptoms inconsolable crying infection pain, tingling, numbness in the hands or feet seizures swelling of arm or leg that was injected unusually weak or tired Side effects that usually do not require immediate medical attention (report these side effects to your doctor or health care nurse rn if they continue or are bothersome): fussy, irritable loss of appetite fever of 102 degrees F or less pain, tenderness, redness, swelling, or a 'knot' at site where injected vomiting What may interact with this medicine? immune globulin medicines that suppress your immune function like adalimumab, anakinra, infliximab medicines to treat cancer medicines that treat or prevent blood clots like warfarin, enoxaparin, and dalteparin steroid medicines like prednisone or cortisone What if I miss a dose? It is important not to miss your dose. Call your doctor or health care nurse rn if you are unable to keep an appointment. Where should I keep my medicine? This drug is given in a hospital or clinic and will not be stored at home. What should I tell my health care provider before I take this medicine? They need to know if you have any of these conditions: blood disorders like hemophilia fever or infection immune system problems neurologic disease seizures an unusual or allergic reaction to vaccines, thimerosal, latex, other medicines, foods, dyes, or preservatives or trying to get breast-feeding What should I watch for while using this medicine? See your health care provider for all shots of this vaccine as directed. To have protection from infection, you must have 3 shots of this vaccine plus boosters as needed. Tell your doctor right away if you have any serious or unusual side effects after getting this vaccine. Hydrocodone Bitartrate, Acetaminophen Oral tablet What is this medicine? ACETAMINOPHEN; HYDROCODONE (a set a KATHLEEN yaniv fen; nena droe KOE done) is a pain reliever. It is used to treat mild to moderate pain. How should I use this medicine? Take this medicine by mouth. Swallow it with a full glass of water. Follow the directions on the prescription label. If the medicine upsets your stomach, take the medicine with food or milk. Do not take more than you are told to take. Talk to your circle shear operator regarding the use of this medicine in children. This medicine is not approved for use in children. What side effects may I notice from receiving this medicine? Side effects that you should report to your doctor or health care nurse rn as soon as possible: allergic reactions like skin rash, itching or hives, swelling of the face, lips, or tongue breathing problems confusion feeling faint or lightheaded, falls stomach pain yellowing of the eyes or skin Side effects that usually do not require medical attention (report to your doctor or health care nurse rn if they continue or are bothersome): nausea, vomiting stomach upset What may interact with this medicine? alcohol antihistamines isoniazid medicines for depression, anxiety, or psychotic disturbances medicines for sleep muscle relaxants naltrexone narcotic medicines (opiates) for pain phenobarbital ritonavir tramadol What if I miss a dose? If you miss a dose, take it as soon as you can. If it is almost time for your next dose, take only that dose. Do not take double or extra doses. Where should I keep my medicine? Keep out of the reach of children. This medicine can be abused. Keep your medicine in a safe place to protect it from theft. Do not share this medicine with anyone. Selling or giving away this medicine is dangerous and against the law. Store at room temperature between 15 and 30 degrees C (59 and 86 degrees F). Protect from light. Keep container tightly closed. Throw away any unused medicine after the expiration date. Discard unused medicine and used packaging carefully. Pets and children can be harmed if they find used or lost packages. What should I tell my health care provider before I take this medicine? They need to know if you have any of these conditions: brain tumor Crohn's disease, inflammatory bowel disease, or ulcerative colitis drink more than 3 alcohol-containing drinks per day drug abuse or addiction head injury heart or circulation problems kidney disease or problems going to the bathroom liver disease lung disease, asthma, or breathing problems an unusual or allergic reaction to acetaminophen, hydrocodone, other opioid analgesics, other medicines, foods, dyes, or preservatives or trying to get breast-feeding What should I watch for while using this medicine? Tell your doctor or health care nurse rn if your pain does not go away, if it gets worse, or if you have new or a different type of pain. You may develop tolerance to the medicine. Tolerance means that you will need a higher dose of the medicine for pain relief. Tolerance is normal and is expected if you take the medicine for a long time. Do not suddenly stop taking your medicine because you may develop a severe reaction. Your body becomes used to the medicine. This does NOT mean you are addicted. Addiction is a behavior related to getting and using a drug for a non-medical reason. If you have pain, you have a medical reason to take pain medicine. Your doctor will tell you how much medicine to take. If your doctor wants you to stop the medicine, the dose will be slowly lowered over time to avoid any side effects. You may get drowsy or dizzy when you first start taking the medicine or change doses. Do not drive, use machinery, or do anything that may be dangerous until you know how the medicine affects you. Stand or sit up slowly. There are different types of narcotic medicines (opiates) for pain. If you take more than one type at the same time, you may have more side effects. Give your health care provider a list of all medicines you use. Your doctor will tell you how much medicine to take. Do not take more medicine than directed. Call emergency for help if you have problems breathing. The medicine will cause constipation. Try to have a bowel movement at least every 2 to 3 days. If you do not have a bowel movement for 3 days, call your doctor or health care nurse rn. Too much acetaminophen can be very dangerous. Do not take Tylenol (acetaminophen) or medicines that contain acetaminophen with this medicine. Many non-prescription medicines contain acetaminophen. Always read the labels carefully. Cephalexin Monohydrate Oral tablet What is this medicine? CEPHALEXIN (sef a JUSTO in) is a cephalosporin antibiotic. It is used to treat certain kinds of bacterial infections It will not work for colds, flu, or other viral infections. How should I use this medicine? Take this medicine by mouth with a full glass of water. Follow the directions on the prescription label. This medicine can be taken with or without food. Take your medicine at regular intervals. Do not take your medicine more often than directed. Take all of your medicine as directed even if you think you are better. Do not skip doses or stop your medicine early. Talk to your circle shear operator regarding the use of this medicine in children. While this drug may be prescribed for selected conditions, precautions do apply. What side effects may I notice from receiving this medicine? Side effects that you should report to your doctor or health care nurse rn as soon as possible: allergic reactions like skin rash, itching or hives, swelling of the face, lips, or tongue breathing problems pain or trouble passing urine redness, blistering, peeling or loosening of the skin, including inside the mouth severe or watery diarrhea unusually weak or tired yellowing of the eyes, skin Side effects that usually do not require medical attention (report to your doctor or health care nurse rn if they continue or are bothersome): gas or heartburn genital or anal irritation headache joint or muscle pain nausea, vomiting What may interact with this medicine? probenecid some other antibiotics What if I miss a dose? If you miss a dose, take it as soon as you can. If it is almost time for your next dose, take only that dose. Do not take double or extra doses. There should be at least 4 to 6 hours between doses. Where should I keep my medicine? Keep out of the reach of children. Store at room temperature between 59 and 86 degrees F (15 and 30 degrees C). Throw away any unused medicine after the expiration date. What should I tell my health care provider before I take this medicine? They need to know if you have any of these conditions: kidney disease stomach or intestine problems, especially colitis an unusual or allergic reaction to cephalexin, other cephalosporins, penicillins, other antibiotics, medicines, foods, dyes or preservatives or trying to get breast-feeding What should I watch for while using this medicine? Tell your doctor or health care nurse rn if your symptoms do not begin to improve in a few days. Do not treat diarrhea with over the counter products. Contact your doctor if you have diarrhea that lasts more than 2 days or if it is severe and watery. If you have diabetes, you may get a false-positive result for sugar in your urine. Check with your doctor or health care nurse rn. Sulfamethoxazole, Trimethoprim Oral tablet What is this medicine? SULFAMETHOXAZOLE; TRIMETHOPRIM or SMX-TMP (suhl fuh meth OK preet zohl; trye METH oh prim) is a combination of a sulfonamide antibiotic and a second antibiotic, trimethoprim. It is used to treat or prevent certain kinds of bacterial infections. It will not work for colds, flu, or other viral infections. How should I use this medicine? Take this medicine by mouth with a full glass of water. Follow the directions on the prescription label. Take your medicine at regular intervals. Do not take it more often than directed. Do not skip doses or stop your medicine early. Talk to your circle shear operator regarding the use of this medicine in children. Special care may be needed. This medicine has been used in children as young as 2 months of age. What side effects may I notice from receiving this medicine? Side effects that you should report to your doctor or health care nurse rn as soon as possible: allergic reactions like skin rash or hives, swelling of the face, lips, or tongue breathing problems fever or chills, sore throat irregular heartbeat, chest pain joint or muscle pain pain or difficulty passing urine red pinpoint spots on skin redness, blistering, peeling or loosening of the skin, including inside the mouth unusual bleeding or bruising unusually weak or tired yellowing of the eyes or skin Side effects that usually do not require medical attention (report to your doctor or health care nurse rn if they continue or are bothersome): diarrhea dizziness headache loss of appetite nausea, vomiting nervousness What may interact with this medicine? Do not take this medicine with any of the following medications: aminobenzoate potassium dofetilide metronidazole This medicine may also interact with the following medications: KASSIDY inhibitors like benazepril, enalapril, lisinopril, and ramipril cyclosporine digoxin diuretics indomethacin medicines for diabetes methenamine methotrexate phenytoin potassium supplements pyrimethamine sulfinpyrazone tricyclic antidepressants warfarin What if I miss a dose? If you miss a dose, take it as soon as you can. If it is almost time for your next dose, take only that dose. Do not take double or extra doses. Where should I keep my medicine? Keep out of the reach of children. Store at room temperature between 20 to 25 degrees C (68 to 77 degrees F). Protect from light. Throw away any unused medicine after the expiration date. What should I tell my health care provider before I take this medicine? They need to know if you have any of these conditions: anemia asthma being treated with anticonvulsants if you frequently drink alcohol containing drinks kidney disease liver disease low level of folic acid or [id number] dehydrogenase poor nutrition or malabsorption porphyria severe allergies thyroid disorder an unusual or allergic reaction to sulfamethoxazole, trimethoprim, sulfa drugs, other medicines, foods, dyes, or preservatives or trying to get breast-feeding What should I watch for while using this medicine? Tell your doctor or health care nurse rn if your symptoms do not improve. Drink several glasses of water a day to reduce the risk of kidney problems. Do not treat diarrhea with over the counter products. Contact your doctor if you have diarrhea that lasts more than 2 days or if it is severe and watery. This medicine can make you more sensitive to the sun. Keep out of the sun. If you cannot avoid being in the sun, wear protective clothing and use a sunscreen. Do not use sun lamps or tanning beds/booths. You have been given the following additional information: Laceration, Extrem (Suture, Staple, Or Tape) Diphtheria Toxoid Adsorbed, Pertussis Vaccine, Acellular (Adsorbed), Tetanus Toxoid, Adsorbed Suspension for injection Hydrocodone Bitartrate, Acetaminophen Oral tablet Cephalexin Monohydrate Oral tablet Sulfamethoxazole, Trimethoprim Oral tablet (Electronically signed by Courtney Barnes P.A.-C 12/24/2016 18:08)
--- NOTE | 2016-12-24 19:02 | ED MAR SUMMARY ---
..... Medication Administration Record [facility] [address] [place] [address] Patient: MICHAELA SHARMA Visit ID: [id number] 31y, M Weight: 87.9 kg Height/Length: 70 in BMI: 27.8 ALLERGIES: Tylenol 3, Tramadol Given 17:09 12/24/2016 Linda Macias RJulia Medication Administered: TDAP [IM], Dose: 0.5 mL IM. Medication Ordered: Tdap IM 0.5 mL (NOW, per protocol). Given 17:12 12/24/2016 Linda Macias R.N. Medication Administered: HYDROCODONE-APAP [PO] (HYDROCODONE-ACETAMINOPHEN), Dose: 1 tab 5/325 mg Tablets PO. Medication Ordered: Hydrocodone-APAP PO 5/325 mg (NOW, HIGH ALERT MEDICATION). Given 17:12/24/2016 Bianca Farias, Medication Administered: BACTRIM DS [PO] (SULFAMETHOXAZOLE-TMP DS), Dose: 1 tab Tablets PO. Medication Ordered: Bactrim DS PO (Tablet 800-160 mg) 1 tab (NOW). Given 17:12/24/2016 Bianca Farias, Medication Administered: KEFLEX [PO] (CEPHALEXIN), Dose: 500 mg Capsules PO. Medication Ordered: Keflex PO 500 mg (NOW).
--- NOTE | 2016-12-24 19:02 | ED MAR SUMMARY ---
..... Medication Administration Record [facility] [address] [place] [address] Patient: MICHAELA SHARMA Visit ID: [id number] 31y, M Weight: 87.9 kg Height/Length: 70 in BMI: 27.8 ALLERGIES: Tylenol 3, Tramadol Given 17:09 12/24/2016 Linda Macias RJulia Medication Administered: TDAP [IM], Dose: 0.5 mL IM. Medication Ordered: Tdap IM 0.5 mL (NOW, per protocol). Given 17:12 12/24/2016 Linda Macias R.N. Medication Administered: HYDROCODONE-APAP [PO] (HYDROCODONE-ACETAMINOPHEN), Dose: 1 tab 5/325 mg Tablets PO. Medication Ordered: Hydrocodone-APAP PO 5/325 mg (NOW, HIGH ALERT MEDICATION). Given 17:12/24/2016 Bianca Farias, Medication Administered: BACTRIM DS [PO] (SULFAMETHOXAZOLE-TMP DS), Dose: 1 tab Tablets PO. Medication Ordered: Bactrim DS PO (Tablet 800-160 mg) 1 tab (NOW). Given 17:12/24/2016 Bianca Farias, Medication Administered: KEFLEX [PO] (CEPHALEXIN), Dose: 500 mg Capsules PO. Medication Ordered: Keflex PO 500 mg (NOW).
== END 2016-12-24 17:50 | disposition home or self-care (01) ==
LOC: ED SRH 16:35
DX: S91.311A Laceration without foreign body, right foot, initial encounter (principal); W39.XXXA Discharge of firework, initial encounter; Y92.410 Unspecified street and highway as the place of occurrence of the external cause; Y99.8 Other external cause status; Z72.0 Tobacco use